=== PATIENT | male | born 1950 | race Caucasian/White ===

== ENCOUNTER → 2019-10-28 11:49 | Outpatient (BNVA) | payer MEDICARE, SELFPAY | PROVIDERS: Family Provider Nurse Practitioner Family; PCP Nurse Practitioner Family; Visit Provider Nurse Practitioner Family | DX: E11.9 Type 2 diabetes mellitus without complications (principal); F41.9 Anxiety disorder, unspecified; F32.9 Major depressive disorder, single episode, unspecified; C79.31 Secondary malignant neoplasm of brain; E03.9 Hypothyroidism, unspecified | CPT/HCPCS: 83036 ==

== ENCOUNTER → 2019-11-30 12:08 | Outpatient (BNVA) | payer MEDICARE, SELFPAY | PROVIDERS: Family Provider Nurse Practitioner Family; PCP Nurse Practitioner Family; Visit Provider Nurse Practitioner Family | DX: E03.9 Hypothyroidism, unspecified (principal); I10 Essential (primary) hypertension; M19.90 Unspecified osteoarthritis, unspecified site | CPT/HCPCS: 80053; 81003; 84443; 85025 ==

== ENCOUNTER → 2019-12-31 10:33 | Outpatient (BNVA) | payer MEDICARE, SELFPAY | PROVIDERS: Family Provider Nurse Practitioner Family; PCP Nurse Practitioner Family; Visit Provider Nurse Practitioner Family | DX: J22 Unspecified acute lower respiratory infection (principal); R06.2 Wheezing; I10 Essential (primary) hypertension; Q25.46 Tortuous aortic arch | CPT/HCPCS: 71046 ==

== ENCOUNTER → 2020-01-27 10:24 | Outpatient (BNVA) | payer MEDICARE, SELFPAY | PROVIDERS: Family Provider Nurse Practitioner Family; PCP Nurse Practitioner Family; Visit Provider Nurse Practitioner Family | DX: Z20.828 Contact with and (suspected) exposure to other viral communicable diseases (principal); R06.2 Wheezing; J22 Unspecified acute lower respiratory infection | CPT/HCPCS: 87635 ==

== ENCOUNTER → 2020-01-31 12:34 | Outpatient (BNVA) | payer MEDICARE, SELFPAY | PROVIDERS: Family Provider Nurse Practitioner Family; PCP Nurse Practitioner Family; Visit Provider Family Medicine | DX: J44.1 Chronic obstructive pulmonary disease with (acute) exacerbation (principal); J18.9 Pneumonia, unspecified organism; R06.02 Shortness of breath; R06.2 Wheezing | CPT/HCPCS: 71046 ==

== ENCOUNTER → 2020-04-11 10:44 | Outpatient (BNVA) | payer MEDICARE, SELFPAY | PROVIDERS: Family Provider Nurse Practitioner Family; PCP Nurse Practitioner Family; Visit Provider Nurse Practitioner Family | DX: R06.02 Shortness of breath (principal) | CPT/HCPCS: 71046 ==

== ENCOUNTER 2020-08-11 12:32 | Emergency (ER) | payer MEDICARE, SELFPAY ==
[2020-08-11 12:35] VITALS: BP 151/91; PULSE 65; RESP 24; TEMP 36.6; O2SAT 94; BMI 49.8
--- NOTE | 2020-08-11 12:39 | XR_ITS ---
WS: [id number] Portable AP upright chest, 08/11/2020 Clinical Data: dyspnea/cough Comparison: PA and lateral chest, 04/11/2020. Findings: No nodules, masses or effusions are seen. The heart is enlarged. The pulmonary vascularity is not increased. No pneumonia or pneumothorax is seen. The right Port-A-Cath remains in good positio n. XR/XR chest 1V portable [id number] Impression: Cardiomegaly.
--- NOTE | 2020-08-11 12:40 | ECG_ITS ---
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
--- NOTE | 2020-08-11 12:41 | ED_ITS ---
HPI - SOB/Dyspnea General: Chief Complaint: Shortness of Breath/Dyspnea Stated Complaint: SOB Time Seen by Provider: 08/11/20 12:38 History of Present Illness: HPI Narrative: 70 yo male with complaint of dyspnea on exertion. Is a history of COPD is morbidly obese and he has a history of sleep apnea does not use a CPAP. He has not had any chest pain. With minimal exertion he gets very short of breath. He is currently on inhaled medications they offer some relief. He has noticed increased swelling in his lower extremities. MD elicited complaint: shortness of breath and cough Pertinent past history: COPD Onset (ago): minute(s) Context: occurred during exertion Timing: intermittent Severity: moderate Exacerbating factors: exertion and coughing Relieving factors: rest Known history of: COPD Associated symptoms: Reports chest congestion, cough and hemoptysis; Deny abdominal pain, chest pain, diaphoresis, dizziness, extremity pain, fever(s), lightheadedness, myalgias, nausea, orthopnea, palpitations, paresthesias, polydipsia, polyuria, rash, sense of impending doom, syncope or vomiting Treatment prior to arrival: none Review of Systems Const: Denies: fever(s) or diaphoresis ENMT: Denies: throat pain, ear or mastoid pain, nasal discharge or nasal congestion Card: Denies: chest pain, palpitations, lightheadedness, syncope or orthopnea Resp: Reports: dyspnea, productive cough, hemoptysis and chest congestion GI: Denies: abdominal pain, nausea or vomiting : Denies: flank pain, dysuria, urinary frequency or urinary urgency Musc: Denies: extremity pain Skin/Breast: Denies: rash or pruritus Neuro: Denies: dizziness Endo: Denies: polyuria or polydipsia PFS ED PFSH: Medical History Anxiety and depression Arthritis Brain tumor Close exposure to COVID-19 virus Diabetes Edema Essential hypertension Hypothyroid Lower respiratory tract infection [place] reservoir present Rash of body Wheezing Physical Exam Const: COMMON NORMALS: no acute distress GENERAL APPEARANCE: cooperative and comfortable ORIENTATION/CONSCIOUSNESS: Yes awake, Yes oriented to person, Yes oriented to place and Yes oriented to time HENMT: COMMON NORMALS: normocephalic, atraumatic, hearing grossly normal bilaterally and external ears normal HEAD & SCALP: normocephalic and atraumatic EXTERNAL EAR: Yes external ears normal Neck/C-Spine: COMMON NORMALS: no JVD Resp: COMMON NORMALS: normal respiratory effort, No retractions, No use of accessory muscles and clear to auscultation bilaterally AUSCULTATION: clear to auscultation bilaterally Cardio: COMMON NORMALS: no JVD, regular rate, regular rhythm and No murmurs present (Cardio) RATE: regular rate RHYTHM: regular rhythm GI: COMMON NORMALS: Soft to palpation and No hepatosplenomegaly present AUSCULTATION: Yes normoactive bowel sounds PALPATION: Yes Soft to palpation, No Tenderness to palpation present (GI), No Guarding due to palpation present (GI) and Yes No hepatosplenomegaly present Extremity: COMMON NORMALS: normal to inspection, capillary refill normal and no calf tenderness Neuro: SENSORIUM/ORIENTATION: Yes oriented to person, Yes oriented to place and Yes oriented to time Skin: COMMON NORMALS: no rashes or lesions noted GENERAL SKIN EXAM: no rashes or lesions noted Course Vital Signs: Vital signs: Vital Signs Temperature 97.8 F 08/11/20 12:35 Pulse Rate 58 L 08/11/20 16:15 Respiratory Rate 16 08/11/20 16:15 Blood Pressure 153/84 08/11/20 16:15 Pulse Oximetry 93 08/11/20 16:15 MDM - SOB/Dyspnea MDM Narrative: Medical decision making narrative: Patient is mildly fluid overloaded organ to go and have him increase his Lasix to 60 mg twice daily he is having some productive cough although there is no clear infiltrate on chest x-ray we will add doxycycline 100 twice daily increase his prednisone to 40 tw ice daily for 3 days and then 20 twice daily for 3 days follow-up with his primary care doctor within the week. We will schedule him for an outpatient echocardiogram patient needs further evaluation for open cor pulmonale and sleep apnea. Lab Data: Labs: Lab Results 08/11/20 08/11/20 08/11/20 Range/Units 12:47 12:47 12:47 WBC 6.2 (4.0-10.0) 10^3/ uL RBC 4.19 (4.1-5.3) 10^6/u L Hgb 12.4 (11.7-16.6) g/dL Hct 38.8 L (42.0-52.0) % MCV 92.6 (80-94) fL MCH 29.6 (28.0-34.0) pg MCHC 32.0 (30.0-36.0) g/dL RDW 15.1 (12.1-15.1) % Plt Count 207 (130-400) 10^3/c mm MPV 9.8 (7.4-10.4) fL Neut % (Auto) 66.1 % Lymph % (Auto) 12.3 % [place] % (Auto) 8.6 % Eos % (Auto) 10.9 % Baso % (Auto) 1.6 % Neut # (Auto) 4.08 (1.8-7.7) 10^3/u L Lymph # (Auto) 0.8 (0.8-4.8) 10^3/u L [place] # (Auto) 0.5 (0.2-0.9) 10^3/u L Eos # (Auto) 0.7 (0.0-0.8) 10^3/u L Baso # (Auto) 0.1 (0.0-0.1) 10^3/u L Nucleated RBC % (a uto) 0 % Nucleated RBCs # 0.0 /100WBC Sodium 138 (136-145) mmol/L Potassium 3.6 (3.5-5.1) mmol/L Chloride 102 (98-107) mmol/L Carbon Dioxide 23 (22-29) mmol/L Anion Gap 16.6 (5-19) BUN 13 (8-23) mg/dL Creatinine 0.8 (0.7-1.2) mg/dL GFR Calculation Not Reportable Glucose 194 H (65-115) mg/dL Calculated Osmolal ity 291 (285-295) mOsm/k g Calcium 8.3 L (8.5-10.5) mg/dL Total Bilirubin 0.4 (0.15-1.2) mg/dL AST 17 (0-40) U/L ALT 20 (0-41) U/L Alkaline Phosphata se 92 (40-130) IU/L Troponin T Baselin e 26 H (0-15) ng/L Troponin T 120 Min [place] (0-15) ng/L Delta Troponin T (0-10) ABS# NT-Pro-B Natriuret Pep (0-125) pg/mL Total Protein 6.0 L (6.6-8.7) g/dL Albumin 4.1 (3.5-5.2) g/dL Globulin 1.9 (1.3-4.6) g/dL 08/11/20 08/11/20 Range/Units 12:47 14:50 WBC (4.0-10.0) 10^3/ uL RBC (4.1-5.3) 10^6/u L Hgb (11.7-16.6) g/dL Hct (42.0-52.0) % MCV (80-94) fL MCH (28.0-34.0) pg MCHC (30.0-36.0) g/dL RDW (12.1-15.1) % Plt Count (130-400) 10^3/c mm MPV (7.4-10.4) fL Neut % (Auto) % Lymph % (Auto) % [place] % (Auto) % Eos % (Auto) % Baso % (Auto) % Neut # (Auto) (1.8-7.7) 10^3/u L Lymph # (Auto) (0.8-4.8) 10^3/u L [place] # (Auto) (0.2-0.9) 10^3/u L Eos # (Auto) (0.0-0.8) 10^3/u L Baso # (Auto) (0.0-0.1) 10^3/u L Nucleated RBC % (a uto) % Nucleated RBCs # /100WBC Sodium (136-145) mmol/L Potassium (3.5-5.1) mmol/L Chloride (98-107) mmol/L Carbon Dioxide (22-29) mmol/L Anion Gap (5-19) BUN (8-23) mg/dL Creatinine (0.7-1.2) mg/dL GFR Calculation Glucose (65-115) mg/dL Calculated Osmolal ity (285-295) mOsm/k g Calcium (8.5-10.5) mg/dL Total Bilirubin (0.15-1.2) mg/dL AST (0-40) U/L ALT (0-41) U/L Alkaline Phosphata se (40-130) IU/L Troponin T Baselin e (0-15) ng/L Troponin T 120 Min [place] 26.21 H (0-15) ng/L Delta Troponin T 0.21 (0-10) ABS# NT-Pro-B Natriuret Pep 93 (0-125) pg/mL Total Protein (6.6-8.7) g/dL Albumin (3.5-5.2) g/dL Globulin (1.3-4.6) g/dL Discharge Plan Discharge Patient Disposition: Home Clinical Impression: Acute exacerbation of chronic obstructive airways disease Condition: Stable Prescriptions: New Lasix 40 mg tablet 60 mg PO BID Qty: 60 RF: 0 doxycycline hyclate 100 mg capsule 100 mg PO BID 10 Days Qty: 20 RF: 0 Changed prednisone 20 mg tablet 50 mg PO BID 5 Days Qty: 10 RF: 0 No Action nivolumab 240 mg/24 mL solution See Rx Instructions .ROUTE .COMPLEX RF: 0 albuterol sulfate 0.63 mg/3 mL solution for nebulization 0.63 mg INHALATION Q6H PRN (Reason: shortness of breath or wheezing) 30 Days Qty: 90 RF: 0 triamcinolone acetonide 0.1 % lotion 1 applic topical BID Qty: 120 RF: 2 albuterol sulfate [ProAir HFA] 90 mcg/actuation HFA aerosol inhaler 1 inh inhalation Q6H PRN (Reason: shortness of breath or wheezing) Qty: 8.5 RF: 2 aspirin 325 mg Tablet 325 mg PO PRN RF: 0 Benadryl 25 mg Capsule 25 - 50 mg PO PRN RF: 0 [place] 324 mg Tablet, Effervescent See Rx Instructions .ROUTE .COMPLEX RF: 0 furosemide 40 mg tablet 20 - 40 mg PO BID RF: 0 allopurinol 100 mg tablet 100 mg PO QAM RF: 0 meloxicam 7.5 mg tablet 7.5 mg PO QAM RF: 0 Celexa 20 mg tablet 30 mg PO DAILY RF: 0 metformin 1,000 mg tablet 1,000 mg PO QAM RF: 0 Synthroid 200 mcg tablet 200 mcg PO DAILY RF: 0 lovastatin 20 mg tablet 20 mg PO QAM RF: 0 atenolol 50 mg tablet 50 mg PO QAM RF: 0 hydrochlorothiazide 12.5 mg tablet 12.5 mg PO QAM RF: 0 Discharge Orders: Discharge ED (Routine); Ordered 08/11/20 Ordered By: Colin Osei Referrals: NICHOLAS Ramos, HEALTH AND FITNESS INSTRUCTOR [Primary Care Provider] - Discharge Diet: Usual diet Discharge Activity: Limit activity as instructed Patient Instructions: Opioid Safety Activity Restrictions/Additional Instructions: Increase your prednisone to 50 mg twice daily for 3 days then 40 mg twice daily for 3 days. See your primary care doctor within the next 4 to 5 days. We will add doxycycline 100 mg twice daily. Also increase your Lasix to 60 mg twice daily. Case management will schedule an outpatient echocardiogram to evaluate for right-sided heart strain and pulmonary hypertension. Coding Level of Care Code ED Mobile Security Specialist for Juan Manuel Fwd Exam Comprehensive
[2020-08-11 12:53] LABS: Basophils # 0.1 10^3/uL (0.0-0.1); Basophils % 1.6 %; Eosinophils # 0.7 10^3/uL (0.0-0.8); Eosinophils % 10.9 %; Hematocrit 38.8 % (42.0-52.0); Hemoglobin 12.4 g/dL (11.7-16.6); Lymphocytes # 0.8 10^3/uL (0.8-4.8); Lymphocytes % 12.3 %; Mean Corpuscular Hemoglobin 29.6 pg (28.0-34.0); Mean Corpuscular Volume 92.6 fL (80-94); Mean Platelet Volume 9.8 fL (7.4-10.4); Monocytes # 0.5 10^3/uL (0.2-0.9); Monocytes % 8.6 %; Neutrophils # 4.08 10^3/uL (1.8-7.7); Neutrophils % 66.1 %; Nucleated Red Blood Cells % 0 %; Platelet Count 207 10^3/cmm (130-400); Red Blood Count 4.19 10^6/uL (4.1-5.3); Red Cell Distribution Width 15.1 % (12.1-15.1); White Blood Count 6.2 10^3/uL (4.0-10.0)
[2020-08-11 13:17] LABS: Alanine Aminotransferase 20 U/L (0-41); Albumin Level 4.1 g/dL (3.5-5.2); Alkaline Phosphatase 92 IU/L (40-130); Anion Gap 16.6 (5-19); Aspartate Amino Transferase 17 U/L (0-40); Blood Urea Nitrogen 13 mg/dL (8-23); Calcium 8.3 mg/dL (8.5-10.5); Carbon Dioxide 23 mmol/L (22-29); Chloride 102 mmol/L (98-107); Globulin 1.9 g/dL (1.3-4.6); Glucose 194 mg/dL (65-115); Osmolality Calculated 291 mOsm/kg (285-295); Potassium 3.6 mmol/L (3.5-5.1); Sodium 138 mmol/L (136-145); Total Bilirubin 0.4 mg/dL (0.15-1.2)
[2020-08-11 13:18] LABS: Troponin(5th) Baseline 26 ng/L (0-15)
--- NOTE | 2020-08-11 13:38 | PC.PHAR ---
pt states he takes care of his own medications-pt states he is still taking celexa-ext med history shows last filled on 03/13/20 90d/s-rx written in 08/09/20 for lasix-pt states he hasnt gotten this rx yet-pt states the dr told him to take his wifes 40mg tab-pt states he only got to take one of the 40mg tabs -rx written in 08/09/20 for prednisone 20mg bid-pt states he hasnt gotten yet-ext med history shows levothyroxine 200mcg daily last filled on 01/10/2020 90d/s-pt states he is still taking this medication
[2020-08-11 14:11] VITALS: BP 154/84; PULSE 60; RESP 17; O2SAT 93
--- NOTE | 2020-08-11 14:40 | ECG_ITS ---
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1950 Requested By: Colin Nicole Order Number: [id number] Reading MD: APOLINAR CINTRON Measurements Intervals [place] Rate: 54 P: -1 NM: 163 QRS: -33 QRSD: 129 T: -23 QT: 424 QTc: 404 Interpretive Statements SINUS BRADYCARDIA MARKED LEFT AXIS DEVIATION [QRS AXIS < -30] LEFT BUNDLE BRANCH BLOCK [120+ ms QRS DURATION, 80+ ms Q/S IN V1/V2, 85+ ms R IN I/aVL/V5/V6] Compared to ECG 08/11/2020 12:50:49 No significant changes Electronically Signed On 08-12-2020 20:24:57 CDT by APOLINAR CINTRON [id number]
[2020-08-11 14:45] VITALS: BP 154/96; PULSE 54; PULSE 58; RESP 21; O2SAT 91
[2020-08-11 15:05] LABS: NT Pro B Type Natriuretic Pept 93 pg/mL (0-125)
[2020-08-11 15:25] LABS: Troponin 5 2HR 26.21 ng/L (0-15); Troponin 5 2HR Delta 0.21 ABS# (0-10)
[2020-08-11 15:40] VITALS: O2SAT 95; O2SAT 96
[2020-08-11 16:15] VITALS: BP 153/84; PULSE 58; RESP 16; O2SAT 93
--- NOTE | 2020-08-16 13:58 | DCPLANNER ---
manager cardiac had message to schedule an outpatient echo cardiogram for patient. manager cardiac faxed signed order to centralized scheduling. manager cardiac will call for appointment information.
--- NOTE | 2020-08-24 12:29 | DCPLANNER ---
Patient has a follow up appointment scheduled for Saturday, September 19, 2020 at 9:30 for an echo.
--- NOTE | 2020-10-05 07:20 | DCPLANNER ---
Patient had an out patient echo scheduled - patient did attend appointment.
== END 2020-08-11 16:16 | disposition home or self-care (01) ==
PROVIDERS: Emergency Provider Family Medicine; PCP Nurse Practitioner Family
DX: J44.1 Chronic obstructive pulmonary disease with (acute) exacerbation (principal); Z79.82 Long term (current) use of aspirin; Z79.84 Long term (current) use of oral hypoglycemic drugs; E11.9 Type 2 diabetes mellitus without complications; I10 Essential (primary) hypertension
CPT/HCPCS: 71045; 80053; 83880; 84484; 85025; 93005; 99284

== ENCOUNTER 2020-09-19 09:09 | Outpatient (CLI) | payer MEDICARE, SELFPAY ==
--- NOTE | 2020-09-19 09:15 | USCV_ITS ---
Mark Li Age: 70 Gender: M : 1950 Exam Date: 09/19/2020 09:49 Ordering Phys: Colin Osei DO Technologist: Bryan Disla Exam Location: [facility] [place] Indication: SOB PEDAL EDEMA BP: / HR: 66 Rhythm: Sinus Technical Quality: Adequate MEASUREMENTS (Male / Female) Normal Values 2D ECHO LV Diastolic Diameter PLAX 3.8 cm 4.2 - 5.9 / 3.9 - 5.3 cm LV Systolic Diameter PLAX 2.5 cm IVS Diastolic Thickness 1.3 cm 0.6 - 1.0 / 0.6 - 0.9 cm IVS Systolic Thickness 1.9 cm LVPW Diastolic Thickness 1.3 cm 0.6 - 1.0 / 0.6 - 0.9 cm LVPW Systolic Thickness 1.7 cm LVOT Diameter 2.6 cm LV Ejection Fraction 2D Teich 61.3 % LV Ejection Fraction MOD 2C 57.5 % LV Ejection Fraction 2C AL 57.6 % LA Diameter 5.4 cm LA Width 5.1 cm LA Height 6.1 cm RA Width 4.7 cm RA Height 6.1 cm Aorta at Sinotubular Diameter 3.0 cm DOPPLER AV Peak Velocity 161.0 cm/s LVOT Peak Velocity 99.0 cm/s AV Area Cont Eq vti 3.0 cm squared AV Area Cont Eq pk 3.2 cm squared MV Area PHT 5.0 cm squared Mitral E to A Ratio 0.7 MV E' Velocity 36.0 cm/s Mitral E to MV E' Ratio 8.4 Mitral E to LV E' Lateral Ratio 9.8 Mitral E to LV E' Septal Ratio 7.4 TR Peak Velocity 310.7 cm/s TR Peak Gradient 38.6 mmHg TV Peak E Velocity 90.0 cm/s Right Atrial Pressure 3.0 mmHg Pulmonary Artery Systolic Pressu 41.6 mmHg PV Peak Velocity 71.0 cm/s FINDINGS Left Ventricle Normal left ventricular cavity size. Normal left ventricular systolic function. Left ventricular ejection fraction is estimated at 60 %. There is possible septal hypokinesis. Abnormal septal motion consistent with conduction abnormality. Grade I diastolic dysfunction (abnormal relaxation filling pattern), normal to mildly elevated filling pressures. Right Ventricle Normal right ventricular size and systolic function. RVSP could not be calculated due to incomplete tricuspid regurgitation velocity profile. Right Atrium Normal right atrial size. Left Atrium Mildly increased left atrial size. Mitral Valve Structurally normal mitral valve. No mitral valve stenosis. No mitral valve regurgitation. Aortic Valve Aortic valve not well visualized. No aortic valve stenosis. No aortic valve regurgitation. Tricuspid Valve Structurally normal tricuspid valve. Trace tricuspid valve regurgitation. Pulmonic Valve Pulmonic valve not well visualized. Pericardium No pericardial effusion. Aorta Normal size aortic root and proximal ascending aorta. CONCLUSIONS 1. This is a technically difficult study. Ultrasound enhancing agent Optison was used per protocol. 2. Normal left ventricular cavity size and systolic function. Left ventricular ejection fraction is estimated at 60 %. There is possible septal hypokinesis. Abnormal septal motion consistent with conduction abnormality. Grade I diastolic dysfunction (abnormal relaxation filling pattern), normal to mildly elevated filling pressures. 3. Normal right ventricular size and systolic function 4. Mildly increased left atrial size. 5. No prior similar studies to compare. Desire Carranza MD (Electronically Signed) Final Date: 19 September 2020 17:12 S
[2020-09-19] MEDS: perflutren protein-a microsphr 0.22 mg/mL SDV 3 mL IV (10:19)
== END 2020-09-19 09:10 | disposition home or self-care (01) ==
LOC: US 09:11
PROVIDERS: PCP Nurse Practitioner Family; Visit Provider Nurse Practitioner Family
DX: R06.02 Shortness of breath (principal); I27.20 Pulmonary hypertension, unspecified; R60.9 Edema, unspecified
CPT/HCPCS: C8929; Q9956

== ENCOUNTER 2020-09-21 13:30 | Emergency (ER) | payer MEDICARE, SELFPAY ==
[2020-09-21 13:54] VITALS: BP 136/78; PULSE 78; RESP 22; TEMP 36.8; O2SAT 95; BMI 45.6
--- NOTE | 2020-09-21 14:19 | XR_ITS ---
WS: [id number] Portable AP upright chest, 09/21/2020 Clinical Data: Cough Comparison: Chest, 08/11/2020. Findings: No nodules, masses or effusions are seen. The heart is enlarged. The pulmonary vascularity is not increased. No pneumonia or pneumothorax is seen. Right Port-A-Cath is in good position. Monito r leads are on the chest wall. XR/XR chest 1V portable [id number] Impression: Cardiomegaly.
[2020-09-21 14:38] LABS: ABG PCO2 40.6 mmHg (35-45); ABG PH Result 7.47 (7.35-7.45); Alveolar-Arterial Oxygen Gradi 4.3 mmHg (5-10); Arterial Blood Gas Hematocrit 39.7 % (42-52); Base Excess ABG 5.1 mmol/L (-2.0-2.0); Blood Gas Allen Test Pos; Blood Gas Operator Identificat AMH; Blood Gas Sample Site Radial, right; Blood Gas Sample Type Arterial; Carboxyhemoglobin 1.2 %THgb (0.4-20.1); HCO3 ABG 29.2 mmol/L (22-26); HGB O2 Sat 92.6 % (95-100); Ionized Calcium Level - ABG 1.2 mmol/L (1.1-1.4); Methemoglobin 0.9 % (0.4-1.5); Oxygen Device ROOM AIR; Oxygen Saturation ABG 94.5; PO2 ABG 66.6 mmHg (80.0-100.0); Potassium Level - ABG 3.6 mmol/L (3.5-5.0)
--- NOTE | 2020-09-21 14:57 | ED_ITS ---
HPI - SOB/Dyspnea General: Chief Complaint: Shortness of Breath/Dyspnea Stated Complaint: swelling, SOB, Time Seen by Provider: 09/21/20 14:50 History of Present Illness: HPI Narrative: This patient is a 70-year-old male who presents to the emergency department with a complaint of concerning shortness of breath due to congestive heart failure. Patient had a recent echocardiogram which she stated below. Patient states that he had a 22 pound weight gain in about a week. Patient states increasing shortness of breath. Patient denies chest pain. Patient states he did take double Lasix this morning but still not really put out much urine. This has been an ongoing issue for the patient for quite a while. Will do medical evaluation treat as needed Echocardiogram dated 09/19/2020 FINDINGS Left Ventricle Normal left ventricular cavity size. Normal left ventricular systolic function. Left ventricular ejection fraction is estimated at 60 %. There is possible septal hypokinesis. Abnormal septal motion consistent with conduction abnormality. Grade I diastolic dysfunction (abnormal relaxation filling pattern), normal to mildly elevated filling pressures. Right Ventricle Normal right ventricular size and systolic function. RVSP could not be calculated due to incomplete tricuspid regurgitation velocity profile. Right Atrium Normal right atrial size. Left Atrium Mildly increased left atrial size. Mitral Valve Structurally normal mitral valve. No mitral valve stenosis. No mitral valve regurgitation. Aortic Valve Aortic valve not well visualized. No aortic valve stenosis. No aortic valve regurgitation. Tricuspid Valve Structurally normal tricuspid valve. Trace tricuspid valve regurgitation. Pulmonic Valve Pulmonic valve not well visualized. Pericardium No pericardial effusion. Aorta Normal size aortic root and proximal ascending aorta. CONCLUSIONS 1. This is a technically difficult study. Ultrasound enhancing agent Optison was used per protocol. 2. Normal left ventricular cavity size and systolic function. Left ventricular ejection fraction is estimated at 60 %. There is possible septal hypokinesis. Abnormal septal motion consistent with conduction abnormality. Grade I diastolic dysfunction (abnormal relaxation filling pattern), normal to mildly elevated filling pressures. 3. Normal right ventricular size and systolic function 4. Mildly increased left atrial size. 5. No prior similar studies to compare. MD elicited complaint: shortness of breath Pertinent past history: congestive heart failure Onset (ago): week(s) Timing: constant Severity: moderate Exacerbating factors: lying flat and exertion Relieving factors: nothing Known history of: congestive heart failure Associated symptoms: Reports orthopnea; Deny abdominal pain, chest pain, extremity pain, fever(s), lightheadedness, nausea, palpitations or vomiting Review of Systems General: Reports: 10 or more systems reviewed and unremarkable except in HPI and below Const: Denies: fever(s), chills, body aches or fatigue Eyes: Denies: change in vision or blurry vision ENMT: Denies: throat pain, hoarseness or mouth pain Card: Reports: edema, swelling of feet/ankles and orthopnea; Denies: chest pain, palpitations, irregular heart rhythm or lightheadedness Resp: Denies: dyspnea, productive cough, non-productive cough, wheezing or pain on inspiration GI: Denies: abdominal pain, nausea or vomiting : Denies: flank pain, dysuria, urinary frequency, urinary urgency or urinary hesitancy Musc: Denies: neck pain, back pain, extremity pain, extremity swelling, joint pain, joint swelling, joint redness, joint warmth or limited range of motion Skin/Breast: Denies: rash, pruritus, erythema or skin tenderness Neuro: Denies: headache(s), numbness in extremities or weakness in extremities Psych: Denies: anxiety or depression PFSH ED PFSH: Medical History Anxiety and depression Arthritis Brain tumor Close exposure to COVID-19 virus Diabetes Edema Essential hypertension Hypothyroid Lower respiratory tract infection [place] reservoir present Rash of body Shortness of breath Wheezing Physical Exam Const: COMMON NORMALS: no acute distress, average body habitus, patient oriented x3, no limitations, healthy appearing, alert and well nourished HENMT: COMMON NORMALS: normocephalic, atraumatic, hearing grossly normal bilaterally, external ears normal, EAC's normal, TM's normal bilaterally, Normal external nose present, Normal nasal mucous membranes and turbinates present, moist oral mucous membranes, oropharynx normal, dentition normal and gingiva normal HEAD & SCALP: normocephalic and atraumatic NOSE: Normal external nose present and Normal nasal mucous membranes and turbinates present EXTERNAL EAR: Yes external ears normal EXTERNAL AUDITORY CANAL: EAC's normal TYMPANIC MEMBRANE: TM's normal bilaterally Neck/C-Spine: COMMON NORMALS: full ROM, no lymphadenopathy, supple, no meningeal signs, no JVD, Thyroid normal and No carotid bruits THYROID: Thyroid normal Chest: COMMONS NORMALS: normal inspection of the chest, normal palpation of entire chest wall, normal inspection of the breasts and normal palpation of the breasts Breast/axilla inspection: Yes normal inspection of the breasts BREAST/AXILLA PALPATION: Yes normal palpation of the breasts Resp: COMMON NORMALS: No retractions, No use of accessory muscles, clear to auscultation bilaterally and percussion normal EFFORT & INSPECTION: Yes tachypneic AUSCULTATION: clear to auscultation bilaterally PERCUSSION: percussion normal Cardio: COMMON NORMALS: no JVD, regular rate, regular rhythm, S1 normal heart sound present, S2 normal heart sound present, No gallops present (Cardio), No clicks present (Cardio), No murmurs present (Cardio), No rub (Cardio) and Peripheral pulses 2+ throughout RATE: regular rate RHYTHM: regular rhythm HEART SOUNDS: S1 normal heart sound present and S2 normal heart sound present PERIPHERAL PULSES: Peripheral pulses 2+ throughout OTHER: Significant edema. Patient has 3-4+ edema lower extremities. Appears to be fluid overloaded. GI: COMMON NORMALS: Normal to inspection, nondistended, normoactive bowel sounds present, Soft to palpation, non-tender, No hepatosplenomegaly present, no masses and no bruits PALPATION: Yes Soft to palpation and Yes No hepatosplenomegaly present : COMMON NORMALS: Yes no CVA tenderness BLADDER/KIDNEY EXAM: Yes no CVA tenderness Back/Pelvis: COMMON NORMALS: no CVA tenderness, thoracic and lumbar spine normal to inspection, no thoracic nor lumbar tenderness, thoraco-lumbar ROM normal and straight leg raise negative bilaterally Extremity: COMMON NORMALS: normal to inspection, full ROM, capillary refill normal, no joint enlargement, no clubbing, cyanosis or edema, no calf tenderness and no pedal edema Neuro: COMMON NORMALS: patient oriented x3 SENSORIUM/ORIENTATION: Yes alert MENINGEAL SIGNS: Yes no meningeal signs Course Reevaluation(s): Reevaluation #1: Patient doing well walking around the ER room. Patient is not on oxygen. Maintaining O2 sats. Patient is requesting to be discharged home. We did discuss patient's echocardiogram results. Patient will follow up with primary care and cardiology. Discussed at length with patient's elevated D-dimer patient declines CT angio. Patient request to be discharged home. Agrees he will follow up with primary care physician in 2 to 3 days for his chronic issues. Patient is discharged per his request Time: 18:38 Vital Signs: Vital signs: Vital Signs Temperature 98.2 F 09/21/20 13:54 Pulse Rate 73 09/21/20 16:30 Respiratory Rate 20 H 09/21/20 16:30 Blood Pressure 158/93 09/21/20 16:30 Pulse Oximetry 98 09/21/20 16:30 MDM - SOB/Dyspnea MDM Narrative: Medical decision making narrative: This patient is a 70-year-old male who presents to the emergency department with a complaint of concerning shortness of breath due to congestive heart failure. Patient had a recent echocardiogram which she stated below. Patient states that he had a 22 pound weight gain in about a week. Patient states increasing shortness of breath. Patient denies chest pain. Patient states he did take double Lasix this morning but still not really put out much urine. This has been an ongoing issue for the patient for quite a while. Will do medical evaluation treat as needed Echocardiogram dated 09/19/2020 FINDINGS Left Ventricle Normal left ventricular cavity size. Normal left ventricular systolic function. Left ventricular ejection fraction is estimated at 60 %. There is possible septal hypokinesis. Abnormal septal motion consistent with conduction abnormality. Grade I diastolic dysfunction (abnormal relaxation filling pattern), normal to mildly elevated filling pressures. Right Ventricle Normal right ventricular size and systolic function. RVSP could not be calculated due to incomplete tricuspid regurgitation velocity profile. Right Atrium Normal right atrial size. Left Atrium Mildly increased left atrial size. Mitral Valve Structurally normal mitral valve. No mitral valve stenosis. No mitral valve regurgitation. Aortic Valve Aortic valve not well visualized. No aortic valve stenosis. No aortic valve regurgitation. Tricuspid Valve Structurally normal tricuspid valve. Trace tricuspid valve regurgitation. Pulmonic Valve Pulmonic valve not well visualized. Pericardium No pericardial effusion. Aorta Normal size aortic root and proximal ascending aorta. CONCLUSIONS 1. This is a technically difficult study. Ultrasound enhancing agent Optison was used per protocol. 2. Normal left ventricular cavity size and systolic function. Left ventricular ejection fraction is estimated at 60 %. There is possible septal hypokinesis. Abnormal septal motion consistent with conduction abnormality. Grade I diastolic dysfunction (abnormal relaxation filling pattern), normal to mildly elevated filling pressures. 3. Normal right ventricular size and systolic function 4. Mildly increased left atrial size. 5. No prior similar studies to compare. Patient doing well walking around the ER room. Patient is not on oxygen. Maintaining O2 sats. Patient is requesting to be discharged home. We did discuss patient's echocardiogram results. Patient will follow up with primary care and cardiology. Discussed at length with patient's elevated D-dimer patient declines CT angio. Patient request to be discharged home. Agrees he will follow up with primary care physician in 2 to 3 days for his chronic issues. Patient is discharged per his request Medical Records: Attestation: I reviewed the patient's medical records. Lab Data: Attestation: I reviewed the patient's lab results. Labs: Lab Results 09/21/20 09/21/20 09/21/20 Range/Units 14:25 15:40 15:40 WBC 7.0 (4.0-10.0) 10^3/ uL RBC 4.27 (4.1-5.3) 10^6/u L Hgb 12.6 (11.7-16.6) g/dL Hct 40.0 L (42.0-52.0) % MCV 93.7 (80-94) fL MCH 29.5 (28.0-34.0) pg MCHC 31.5 (30.0-36.0) g/dL RDW 15.0 (12.1-15.1) % Plt Count 223 (130-400) 10^3/c mm MPV 10.1 (7.4-10.4) fL Neut % (Auto) 71.5 % Lymph % (Auto) 11.5 % Maverick % (Auto) 9.8 % Eos % (Auto) 5.9 % Baso % (Auto) 0.9 % Neut # (Auto) 4.97 (1.8-7.7) 10^3/u L Lymph # (Auto) 0.8 (0.8-4.8) 10^3/u L Maverick # (Auto) 0.7 (0.2-0.9) 10^3/u L Eos # (Auto) 0.4 (0.0-0.8) 10^3/u L Baso # (Auto) 0.1 (0.0-0.1) 10^3/u L Nucleated RBC % (a uto) 0 % Nucleated RBCs # 0.0 /100WBC PT 13.70 (12.1-14.9) SECO NDS INR 1.02 (0.8-1.2) APTT 26.1 (23.9-36.7) SECO NDS D-Dimer (0-0.59) ug/mIFE U Specimen Type Arterial Sample Site Radial, right ABG pH 7.47 H (7.35-7.45) ABG pCO2 40.6 (35-45) mmHg ABG pO2 66.6 L (80.0-100.0) mmH g ABG HCO3 29.2 H (22-26) mmol/L ABG O2 Saturation 94.5 ABG Base Excess 5.1 H (-2.0-2.0) mmol/ L Pio Test Pos A-a O2 Gradient 4.3 L (5-10) mmHg Hematocrit 39.7 L (42-52) % Hgb O2 Saturation 92.6 L (95-100) % Carboxyhemoglobin 1.2 (0.4-20.1) %THgb Methemoglobin 0.9 (0.4-1.5) % Total Hemoglobin 13.0 L (14-18) g/dL Sodium 137.0 (131-143) mmol/L Potassium 3.6 (3.5-5.0) mmol/L Glucose 215.0 H (70-115) mg/dL Ionized Calcium 1.2 (1.1-1.4) mmol/L O2 Delivery Device Room air FiO2 21.0 % Warehouse Person ID Amh Chloride (98-107) mmol/L Carbon Dioxide (22-29) mmol/L Anion Gap (5-19) BUN (8-23) mg/dL Creatinine (0.7-1.2) mg/dL GFR Calculation Calculated Osmolal ity (285-295) mOsm/k g Calcium (8.5-10.5) mg/dL Total Bilirubin (0.15-1.2) mg/dL AST (0-40) U/L ALT (0-41) U/L Alkaline Phosphata se (40-130) IU/L Troponin T Baselin e (0-15) ng/L Troponin T 120 Min [place] (0-15) ng/L Delta Troponin T (0-10) ABS# NT-Pro-B Natriuret Pep (0-125) pg/mL Total Protein (6.6-8.7) g/dL Albumin (3.5-5.2) g/dL Globulin (1.3-4.6) g/dL Urine Color (Yellow) Urine Appearance (CLEAR) Urine pH (5-7) Ur Specific Gravit y (1.005-1.030) Urine Protein (Negative) Urine Glucose (UA) (Normal) Urine Ketones (Negative) Urine Blood (Negative) Urine Nitrate (Negative) Urine Bilirubin (Negative) Urine Urobilinogen (Negative) mg/dL Ur Leukocyte Shae ase (Negative) Urine Opiates Scre en (Negative) ng/mL Ur Barbiturates Sc reen (Negative) ng/mL Ur Phencyclidine S crn (Negative) ng/mL Ur Amphetamines Sc reen (Negative) ng/mL U Benzodiazepines Scrn (Negative) ng/mL Urine Cocaine Scre en (Negative) ng/mL U Marijuana (THC) Screen (Negative) ng/mL SARS-CoV-2 Ag (Rap id) (Negative) 09/21/20 09/21/20 09/21/20 Range/Units 15:40 15:40 15:42 WBC (4.0-10.0) 10^3/ uL RBC (4.1-5.3) 10^6/u L Hgb (11.7-16.6) g/dL Hct (42.0-52.0) % MCV (80-94) fL MCH (28.0-34.0) pg MCHC (30.0-36.0) g/dL RDW (12.1-15.1) % Plt Count (130-400) 10^3/c mm MPV (7.4-10.4) fL Neut % (Auto) % Lymph % (Auto) % Maverick % (Auto) % Eos % (Auto) % Baso % (Auto) % Neut # (Auto) (1.8-7.7) 10^3/u L Lymph # (Auto) (0.8-4.8) 10^3/u L Maverick # (Auto) (0.2-0.9) 10^3/u L Eos # (Auto) (0.0-0.8) 10^3/u L Baso # (Auto) (0.0-0.1) 10^3/u L Nucleated RBC % (a uto) % Nucleated RBCs # /100WBC PT (12.1-14.9) SECO NDS INR (0.8-1.2) APTT (23.9-36.7) SECO NDS D-Dimer (0-0.59) ug/mIFE U Specimen Type Sample Site ABG pH (7.35-7.45) ABG pCO2 (35-45) mmHg ABG pO2 (80.0-100.0) mmH g ABG HCO3 (22-26) mmol/L ABG O2 Saturation ABG Base Excess (-2.0-2.0) mmol/ L Pio Test A-a O2 Gradient (5-10) mmHg Hematocrit (42-52) % Hgb O2 Saturation (95-100) % Carboxyhemoglobin (0.4-20.1) %THgb Methemoglobin (0.4-1.5) % Total Hemoglobin (14-18) g/dL Sodium 137 (131-143) mmol/L Potassium 3.7 (3.5-5.0) mmol/L Glucose 173 H (70-115) mg/dL Ionized Calcium (1.1-1.4) mmol/L O2 Delivery Device FiO2 % Warehouse Person ID Chloride [id number] L (98-107) mmol/L Carbon Dioxide 28 (22-29) mmol/L Anion Gap 15.7 (5-19) BUN 8 (8-23) mg/dL Creatinine 0.8 (0.7-1.2) mg/dL GFR Calculation Not Reportable Calculated Osmolal ity 286 (285-295) mOsm/k g Calcium 8.7 (8.5-10.5) mg/dL Total Bilirubin 0.5 (0.15-1.2) mg/dL AST 16 (0-40) U/L ALT 18 (0-41) U/L Alkaline Phosphata se 95 (40-130) IU/L Troponin T Baselin e 33 H (0-15) ng/L Troponin T 120 Min [place] (0-15) ng/L Delta Troponin T (0-10) ABS# NT-Pro-B Natriuret Pep 107 (0-125) pg/mL Total Protein 6.4 L (6.6-8.7) g/dL Albumin 3.9 (3.5-5.2) g/dL Globulin 2.5 (1.3-4.6) g/dL Urine Color (Yellow) Urine Appearance (CLEAR) Urine pH (5-7) Ur Specific Gravit y (1.005-1.030) Urine Protein (Negative) Urine Glucose (UA) (Normal) Urine Ketones (Negative) Urine Blood (Negative) Urine Nitrate (Negative) Urine Bilirubin (Negative) Urine Urobilinogen (Negative) mg/dL Ur Leukocyte Shae ase (Negative) Urine Opiates Scre en (Negative) ng/mL Ur Barbiturates Sc reen (Negative) ng/mL Ur Phencyclidine S crn (Negative) ng/mL Ur Amphetamines Sc reen (Negative) ng/mL U Benzodiazepines Scrn (Negative) ng/mL Urine Cocaine Scre en (Negative) ng/mL U Marijuana (THC) Screen (Negative) ng/mL SARS-CoV-2 Ag (Rap id) Negative (Negative) 09/21/20 09/21/20 09/21/20 Range/Units 16:20 16:20 18:04 WBC (4.0-10.0) 10^3/ uL RBC (4.1-5.3) 10^6/u L Hgb (11.7-16.6) g/dL Hct (42.0-52.0) % MCV (80-94) fL MCH (28.0-34.0) pg MCHC (30.0-36.0) g/dL RDW (12.1-15.1) % Plt Count (130-400) 10^3/c mm MPV (7.4-10.4) fL Neut % (Auto) % Lymph % (Auto) % Maverick % (Auto) % Eos % (Auto) % Baso % (Auto) % Neut # (Auto) (1.8-7.7) 10^3/u L Lymph # (Auto) (0.8-4.8) 10^3/u L Maverick # (Auto) (0.2-0.9) 10^3/u L Eos # (Auto) (0.0-0.8) 10^3/u L Baso # (Auto) (0.0-0.1) 10^3/u L Nucleated RBC % (a uto) % Nucleated RBCs # /100WBC PT (12.1-14.9) SECO NDS INR (0.8-1.2) APTT (23.9-36.7) SECO NDS D-Dimer (0-0.59) ug/mIFE U Specimen Type Sample Site ABG pH (7.35-7.45) ABG pCO2 (35-45) mmHg ABG pO2 (80.0-100.0) mmH g ABG HCO3 (22-26) mmol/L ABG O2 Saturation ABG Base Excess (-2.0-2.0) mmol/ L Pio Test A-a O2 Gradient (5-10) mmHg Hematocrit (42-52) % Hgb O2 Saturation (95-100) % Carboxyhemoglobin (0.4-20.1) %THgb Methemoglobin (0.4-1.5) % Total Hemoglobin (14-18) g/dL Sodium (131-143) mmol/L Potassium (3.5-5.0) mmol/L Glucose (70-115) mg/dL Ionized Calcium (1.1-1.4) mmol/L O2 Delivery Device FiO2 % Warehouse Person ID Chloride (98-107) mmol/L Carbon Dioxide (22-29) mmol/L Anion Gap (5-19) BUN (8-23) mg/dL Creatinine (0.7-1.2) mg/dL GFR Calculation Calculated Osmolal ity (285-295) mOsm/k g Calcium (8.5-10.5) mg/dL Total Bilirubin (0.15-1.2) mg/dL AST (0-40) U/L ALT (0-41) U/L Alkaline Phosphata se (40-130) IU/L Troponin T Baselin e (0-15) ng/L Troponin T 120 Min [place] 32.92 H (0-15) ng/L Delta Troponin T -0.08 L (0-10) ABS# NT-Pro-B Natriuret Pep (0-125) pg/mL Total Protein (6.6-8.7) g/dL Albumin (3.5-5.2) g/dL Globulin (1.3-4.6) g/dL Urine Color Straw (Yellow) Urine Appearance Clear (CLEAR) Urine pH 5 (5-7) Ur Specific Gravit y 1.010 (1.005-1.030) Urine Protein Neg (Negative) Urine Glucose (UA) Norm (Normal) Urine Ketones Negative (Negative) Urine Blood Neg (Negative) Urine Nitrate Negative (Negative) Urine Bilirubin Neg (Negative) Urine Urobilinogen Norm (Negative) mg/dL Ur Leukocyte Shae ase Negative (Negative) Urine Opiates Scre en Positive H (Negative) ng/mL Ur Barbiturates Sc reen Negative (Negative) ng/mL Ur Phencyclidine S crn Negative (Negative) ng/mL Ur Amphetamines Sc reen Negative (Negative) ng/mL U Benzodiazepines Scrn Negative (Negative) ng/mL Urine Cocaine Scre en Negative (Negative) ng/mL U Marijuana (THC) Screen Negative (Negative) ng/mL SARS-CoV-2 Ag (Rap id) (Negative) 09/21/20 Range/Units 18:04 WBC (4.0-10.0) 10^3/ uL RBC (4.1-5.3) 10^6/u L Hgb (11.7-16.6) g/dL Hct (42.0-52.0) % MCV (80-94) fL MCH (28.0-34.0) pg MCHC (30.0-36.0) g/dL RDW (12.1-15.1) % Plt Count (130-400) 10^3/c mm MPV (7.4-10.4) fL Neut % (Auto) % Lymph % (Auto) % Maverick % (Auto) % Eos % (Auto) % Baso % (Auto) % Neut # (Auto) (1.8-7.7) 10^3/u L Lymph # (Auto) (0.8-4.8) 10^3/u L Maverick # (Auto) (0.2-0.9) 10^3/u L Eos # (Auto) (0.0-0.8) 10^3/u L Baso # (Auto) (0.0-0.1) 10^3/u L Nucleated RBC % (a uto) % Nucleated RBCs # /100WBC PT (12.1-14.9) SECO NDS INR (0.8-1.2) APTT (23.9-36.7) SECO NDS D-Dimer 1.12 H (0-0.59) ug/mIFE U Specimen Type Sample Site ABG pH (7.35-7.45) ABG pCO2 (35-45) mmHg ABG pO2 (80.0-100.0) mmH g ABG HCO3 (22-26) mmol/L ABG O2 Saturation ABG Base Excess (-2.0-2.0) mmol/ L Pio Test A-a O2 Gradient (5-10) mmHg Hematocrit (42-52) % Hgb O2 Saturation (95-100) % Carboxyhemoglobin (0.4-20.1) %THgb Methemoglobin (0.4-1.5) % Total Hemoglobin (14-18) g/dL Sodium (131-143) mmol/L Potassium (3.5-5.0) mmol/L Glucose (70-115) mg/dL Ionized Calcium (1.1-1.4) mmol/L O2 Delivery Device FiO2 % Warehouse Person ID Chloride (98-107) mmol/L Carbon Dioxide (22-29) mmol/L Anion Gap (5-19) BUN (8-23) mg/dL Creatinine (0.7-1.2) mg/dL GFR Calculation Calculated Osmolal ity (285-295) mOsm/k g Calcium (8.5-10.5) mg/dL Total Bilirubin (0.15-1.2) mg/dL AST (0-40) U/L ALT (0-41) U/L Alkaline Phosphata se (40-130) IU/L Troponin T Baselin e (0-15) ng/L Troponin T 120 Min [place] (0-15) ng/L Delta Troponin T (0-10) ABS# NT-Pro-B Natriuret Pep (0-125) pg/mL Total Protein (6.6-8.7) g/dL Albumin (3.5-5.2) g/dL Globulin (1.3-4.6) g/dL Urine Color (Yellow) Urine Appearance (CLEAR) Urine pH (5-7) Ur Specific Gravit y (1.005-1.030) Urine Protein (Negative) Urine Glucose (UA) (Normal) Urine Ketones (Negative) Urine Blood (Negative) Urine Nitrate (Negative) Urine Bilirubin (Negative) Urine Urobilinogen (Negative) mg/dL Ur Leukocyte Shae ase (Negative) Urine Opiates Scre en (Negative) ng/mL Ur Barbiturates Sc reen (Negative) ng/mL Ur Phencyclidine S crn (Negative) ng/mL Ur Amphetamines Sc reen (Negative) ng/mL U Benzodiazepines Scrn (Negative) ng/mL Urine Cocaine Scre en (Negative) ng/mL U Marijuana (THC) Screen (Negative) ng/mL SARS-CoV-2 Ag (Rap id) (Negative) Imaging Data^: CXR: Attestation: I personally reviewed and interpreted this imaging study as follows: Radiologist's impression: Findings: No nodules, masses or effusions are seen. The heart is enlarged. The pulmonary vascularity is not increased. No pneumonia or pneumothorax is seen. Right Port-A-Cath is in good position. Monitor leads are on the chest wall. XR/XR chest 1V portable [id number] Impression: Cardiomegaly. EKG Data^: EKG 1: Attestation: I personally reviewed and interpreted this EKG as follows: EKG Interpretation Date: 09/21/20 EKG interpretation time: 14:03 Prior EKG tracings: available for review Interpretation: Sinus rhythm with a left axis deviation left bundle branch block heart rate 74 chronic abnormal EKG EKG 2: Attestation: I personally reviewed and interpreted this EKG as follows: EKG Interpretation Date: 09/21/20 EKG interpretation time: 16:45 Prior EKG tracings: available for review Interpretation: Sinus rhythm with marked left axis deviation heart rate 72 left bundle branch block chronic abnormal EKG unchanged from previous Discharge Plan Discharge Patient Disposition: Home Clinical Impression: Chronic dyspnea, Chronic edema, Morbid obesity, D-dimer, elevated Condition: Stable Prescriptions: No Action nivolumab 240 mg/24 mL solution See Rx Instructions .ROUTE .COMPLEX RF: 0 albuterol sulfate 0.63 mg/3 mL solution for nebulization 0.63 mg INHALATION Q6H PRN (Reason: shortness of breath or wheezing) 30 Days Qty: 90 RF: 0 albuterol sulfate [ProAir HFA] 90 mcg/actuation HFA aerosol inhaler 1 inh inhalation Q6H PRN (Reason: shortness of breath or wheezing) Qty: 8.5 RF: 2 aspirin 325 mg Tablet 325 mg PO PRN RF: 0 diphenhydramine HCl [Benadryl] 25 mg Capsule 25 - 50 mg PO PRN RF: 0 Consuelo-Morgan 324 mg Tablet, Effervescent See Rx Instructions .ROUTE .COMPLEX RF: 0 Lasix 40 mg tablet 60 mg PO BID@0900,1700 RF: 0 allopurinol 100 mg tablet 100 mg PO DAILY@0900 RF: 0 meloxicam 7.5 mg tablet 7.5 mg PO DAILY@0900 RF: 0 Celexa 20 mg tablet 30 mg PO DAILY@0900 RF: 0 metformin 1,000 mg tablet 1,000 mg PO DAILY@0900 RF: 0 Synthroid 200 mcg tablet 200 mcg PO DAILY@0900 RF: 0 lovastatin 20 mg tablet 20 mg PO DAILY@0900 RF: 0 atenolol 50 mg tablet 50 mg PO DAILY@0900 RF: 0 hydrochlorothiazide 12.5 mg tablet 12.5 mg PO DAILY@0900 RF: 0 Discharge Orders: Discharge ED (Routine); Ordered 09/21/20 Ordered By: Ashish Oh Referrals: NICHOLAS Ramos, [employer] [Primary Care Provider] - Discharge Diet: Advance as tolerated Discharge Activity: Resume usual activity Patient Instructions: Opioid Safety Activity Restrictions/Additional Instructions: Continue all home medications. Follow-up with primary care physician in 2 to 3 days. Coding Level of Care Code ED Primary Teaching Assistant for Juan Manuel Hardin Exam Comprehensive
[2020-09-21 15:44] VITALS: BP 123/83; PULSE 72; RESP 18; O2SAT 95
[2020-09-21 15:57] LABS: Basophils # 0.1 10^3/uL (0.0-0.1); Basophils % 0.9 %; Eosinophils # 0.4 10^3/uL (0.0-0.8); Eosinophils % 5.9 %; Hemoglobin 12.6 g/dL (11.7-16.6); Lymphocytes # 0.8 10^3/uL (0.8-4.8); Lymphocytes % 11.5 %; Mean Corpuscular HGB Conc 31.5 g/dL (30.0-36.0); Mean Corpuscular Hemoglobin 29.5 pg (28.0-34.0); Mean Corpuscular Volume 93.7 fL (80-94); Mean Platelet Volume 10.1 fL (7.4-10.4); Monocytes # 0.7 10^3/uL (0.2-0.9); Monocytes % 9.8 %; Neutrophils # 4.97 10^3/uL (1.8-7.7); Neutrophils % 71.5 %; Nucleated Red Blood Cells % 0 %; Platelet Count 223 10^3/cmm (130-400); Red Blood Count 4.27 10^6/uL (4.1-5.3)
[2020-09-21 16:10] VITALS: RESP 20
[2020-09-21] MEDS: ondansetron 2 mg/ML SDV 2 mL 4 MG IVP (16:10)
[2020-09-21] MEDS: FUROsemide 10 mg/mL SDV 10mL 80 MG IVP (16:10)
[2020-09-21] MEDS: morphine 4 mg/mL SDV 1 mL 2 MG IVP (16:10)
[2020-09-21 16:15] LABS: Sodium 137 mmol/L (136-145)
[2020-09-21 16:17] LABS: Troponin(5th) Baseline 33 ng/L (0-15)
[2020-09-21 16:20] LABS: SARS Covid-2 Antigen Negative (Negative)
[2020-09-21 16:20] LABS: INR 1.02 (0.8-1.2)
[2020-09-21 16:21] LABS: Partial Thromboplastin Time 26.1 SECONDS (23.9-36.7)
[2020-09-21 16:30] VITALS: BP 158/93; PULSE 73; RESP 20; O2SAT 98
[2020-09-21 16:39] LABS: Alanine Aminotransferase 18 U/L (0-41); Albumin Level 3.9 g/dL (3.5-5.2); Alkaline Phosphatase 95 IU/L (40-130); Anion Gap 15.7 (5-19); Aspartate Amino Transferase 16 U/L (0-40); Blood Urea Nitrogen 8 mg/dL (8-23); Calcium 8.7 mg/dL (8.5-10.5); Carbon Dioxide 28 mmol/L (22-29); Chloride 97 mmol/L (98-107); Globulin 2.5 g/dL (1.3-4.6); Glucose 173 mg/dL (65-115); NT Pro B Type Natriuretic Pept 107 pg/mL (0-125); Osmolality Calculated 286 mOsm/kg (285-295); Potassium 3.7 mmol/L (3.5-5.1); Total Bilirubin 0.5 mg/dL (0.15-1.2); Total Protein 6.4 g/dL (6.6-8.7)
[2020-09-21 16:41] LABS: Add Urine Microscopic? NO; Charge for UA Resulting for Rev
[2020-09-21 16:52] LABS: Bilirubin Urine Neg (Negative); Blood Urine Neg (Negative); Glucose Urine UA Norm (Normal); Ketones Urine Negative (Negative); Leukocyte Esterase Urine Negative (Negative); Nitrate Urine Negative (Negative); Protein Urine Neg (Negative); Urine Appearance Clear (CLEAR); Urine Color Straw (Yellow); Urobilinogen Urine Norm (Negative); pH Urine 5 (5-7)
[2020-09-21 17:37] LABS: Amphetamines Screen Urine Negative (Negative); Barbiturates Screen Urine Negative (Negative); Benzodiazepines Screen Urine Negative (Negative); Cocaine Screen Urine Negative (Negative); Opiate Screen Urine Positive (Negative); PCP Screen Urine Negative (Negative); THC Screen Urine Negative (Negative)
[2020-09-21 18:27] LABS: D Dimer 1.12 ug/mIFEU (0-0.59)
[2020-09-21 18:35] LABS: Troponin 5 2HR 32.92 ng/L (0-15)
[2020-09-21 18:37] LABS: Troponin 5 2HR Delta -0.08 ABS# (0-10)
--- NOTE | 2020-09-21 20:20 | ECG_ITS ---
[facility] Test Date: 2020-09-21 Pat Name: Mark Li Department: Room: Gender: Male Want Ad Receiver: tab : 1950 Requested By: Ashish Oh Order Number: [id number] Jose Miguel MD: Ric Montana M.D. Measurements Intervals [place] Rate: 74 P: -28 MO: 138 QRS: -49 QRSD: 156 T: 30 QT: 388 QTc: 432 Interpretive Statements SINUS RHYTHM MARKED LEFT AXIS DEVIATION [QRS AXIS < -30] LEFT BUNDLE BRANCH BLOCK [120+ ms QRS DURATION, 80+ ms Q/S IN V1/V2, 85+ ms R IN I/aVL/V5/V6] Compared to ECG 08/11/2020 14:55:45 Sinus bradycardia no longer present Electronically Signed On 09-21-2020 23:48:12 CDT by Ric Montana M.D. [email or web address]
== END 2020-09-21 20:00 | disposition home or self-care (01) ==
PROVIDERS: Emergency Provider Emergency Medicine; PCP Nurse Practitioner Family
DX: R06.09 Other forms of dyspnea (principal); R60.9 Edema, unspecified; E66.01 Morbid (severe) obesity due to excess calories; R79.89 Other specified abnormal findings of blood chemistry; Z79.82 Long term (current) use of aspirin; Z79.84 Long term (current) use of oral hypoglycemic drugs; E11.9 Type 2 diabetes mellitus without complications; I10 Essential (primary) hypertension; Z20.822 Contact with and (suspected) exposure to COVID-19; Z79.899 Other long term (current) drug therapy
CPT/HCPCS: 36600; 71045; 80051; 80053; 80306; 81003; 82330; 82805; 83880; 84484; 85025; 85378; 85610; 85730; 87426; 93005; 96374; 96375; 99284; J1940; J2270; J2405

== ENCOUNTER 2020-09-23 10:27 | Emergency (ER) | payer MEDICARE, SELFPAY ==
[2020-09-23] VITALS (12 sets, daily range): BP systolic 108–162; BP diastolic 61–89; PULSE 66–103; RESP 15–22; TEMP 36.8; O2SAT 90–96; BMI 45.6
--- NOTE | 2020-09-23 12:12 | XRR_ITS ---
PROCEDURE INFORMATION: Exam: XR Chest Exam date and time: 09/23/2020 12:12 PM Age: 70 years old Clinical indication: Dyspnea TECHNIQUE: Imaging protocol: XR of the chest. Views: 1 view. COMPARISON: CR XR chest 1V portable [id number] 09/21/2020 2:47 PM FINDINGS: Tubes, catheters and devices: There is a right IJ catheter whose tip is at the cavoatrial junction. Lungs: Unremarkable. No consolidation. Pleural spaces: Unremarkable. No pleural effusion. No pneumothorax. Heart/Mediastinum: Cardiomegaly is identified. Bones/joints: Unremarkable. XR/XR chest 1V portable [id number] IMPRESSION: There are no acute concerning abnormalities.
--- NOTE | 2020-09-23 12:15 | USR_ITS ---
PROCEDURE INFORMATION: Exam: US Duplex Left Lower Extremity Veins, Limited Exam date and time: 09/23/2020 12:15 PM Age: 70 years old Clinical indication: Pain; Swelling (edema) of limb; Lower extremity, left; Leg, lower; Additional info: R/O dvt TECHNIQUE: Imaging protocol: Real-time Duplex ultrasound of the Left Lower Extremity with 2-D quiroga scale, color Doppler flow and spectral waveform analysis with image documentation. Limited exam focused on the left lower extremity veins. COMPARISON: [place] [id number] 07/27/2015 9:55 AM FINDINGS: Left deep veins: Unremarkable. The common femoral, femoral, proximal profunda femoral and popliteal veins are patent without thrombus. Normal Doppler waveforms. Normal compressibility and/or augmentation response. Left superficial veins: Unremarkable. Saphenofemoral junction is patent without thrombus. Soft tissues: There is superficial calf edema. No Rios's cyst. US/CV venous duplex [facility] [id number] IMPRESSION: No evidence of deep vein thrombosis.
--- NOTE | 2020-09-23 12:15 | ECG_ITS ---
[facility] Test Date: 2020-09-23 Pat Name: Mark Li Department: Room: Gender: Male Health Unit Coordinator: : 1950 Requested By: Guanakito Aponte Order Number: [id number] Gillespie MD: Ignacio Delgado M.D. Measurements Intervals [place] Rate: 64 P: 77 MN: 199 QRS: -21 QRSD: 140 T: 17 QT: 422 QTc: 438 Interpretive Statements SINUS RHYTHM LEFT BUNDLE BRANCH BLOCK [120+ ms QRS DURATION, 80+ ms Q/S IN V1/V2, 85+ ms R IN I/aVL/V5/V6] Compared to ECG 09/21/2020 14:03:54 Left-axis deviation no longer present Electronically Signed On 09-23-2020 19:31:20 CDT by Ignacio Delgado M.D. [id number]
--- NOTE | 2020-09-23 12:37 | W.ED.SOB ---
HPI - SOB/Dyspnea General: Chief Complaint: Shortness of Breath/Dyspnea Stated Complaint: SOB Time Seen by Provider: 09/23/20 11:58 History of Present Illness: HPI Narrative: The patient is a 70-year-old male with past medical history COPD, type 2 diabetes, hypothyroid, prostate and brain cancer chronically which are being treated at [facility] and status post chemo and radiation. He also was recently diagnosed with grade 1 diastolic CHF seen on recent echocardiogram in the past month. He comes to the ER complaining that he was seen here the other day and discharged home. He says he is still short of breath and his left leg has been developing a red rash which is warm to the touch and hurts him. He is worried he could be having a blood clot there. It appears more like a cellulitis picture. He says he itches his shins chronically and sometimes gets infections there. The patient's left leg is red and swollen. Right leg has abrasions from scratching. MD elicited complaint: shortness of breath and cough Pertinent past history: COPD, congestive heart failure and diabetes Context: recent illness Timing: constant Severity: moderate Exacerbating factors: exertion and coughing Relieving factors: rest Known history of: COPD, congestive heart failure and diabetes Associated symptoms: Reports cough; Deny abdominal pain, chest pain, dizziness, extremity pain, orthopnea, palpitations or polyuria Review of Systems General: Reports: 10 or more systems reviewed and unremarkable except in HPI and below Const: Denies: fatigue Eyes: Denies: change in vision, blurry vision or eye redness ENMT: Denies: throat pain, swelling of lips/tongue, ear or mastoid pain or nasal congestion Card: Denies: chest pain, palpitations, irregular heart rhythm, edema, dyspnea on exertion or orthopnea Resp: Reports: dyspnea, non-productive cough and wheezing; Denies: productive cough GI: Denies: abdominal pain, diarrhea or GI cramping : Denies: flank pain, urinary frequency or urinary urgency Musc: Denies: neck pain, back pain, extremity pain, joint pain, joint redness, limited range of motion or muscle weakness Skin/Breast: Reports: other (LLE red painful rash/swelling. cellulitis); Denies: rash, pruritus, erythema, skin pain or skin tenderness Neuro: Denies: headache(s), numbness in extremities, weakness in extremities, sensory changes, difficulty walking, dizziness, confusion or Slurred speech present Psych: Denies: anxiety or depression Endo: Denies: polyuria All/Imm: Denies: urticaria, throat swelling or tongue swelling PFSH ED PFSH: Medical History Anxiety and depression Arthritis Brain tumor Close exposure to COVID-19 virus Diabetes Edema Essential hypertension Hypothyroid Lower respiratory tract infection [place] reservoir present Rash of body Shortness of breath Wheezing Physical Exam Const: COMMON NORMALS: no acute distress, average body habitus, patient oriented x3, no limitations, healthy appearing, alert and well nourished GENERAL APPEARANCE: cooperative, comfortable, well kempt and well developed ORIENTATION/CONSCIOUSNESS: Yes awake, Yes oriented to person, Yes oriented to place and Yes oriented to time HENMT: COMMON NORMALS: normocephalic, external ears normal and Normal external nose present HEAD & SCALP: normal to inspection and normocephalic NOSE: Normal external nose present EXTERNAL EAR: Yes external ears normal MOUTH: Normal oral and palatal mucosa present THROAT: posterior oropharynx normal Eye: COMMON NORMALS: Equal, round and reactive pupils present and EOMs intact bilaterally GENERAL EYE: appearance normal, both eyes and all related structures PUPIL: Yes Equal, round and reactive pupils present Neck/C-Spine: COMMON NORMALS: full ROM, no lymphadenopathy, no meningeal signs and no JVD GENERAL: Yes normal visual inspection Lymph: LYMPHATIC: no lymphadenopathy noted Chest: COMMONS NORMALS: normal inspection of the chest and normal palpation of entire chest wall Resp: COMMON NORMALS: normal respiratory effort, No retractions, No use of accessory muscles and percussion normal EFFORT & INSPECTION: Yes able to speak in complete sentences AUSCULTATION: wheezes PERCUSSION: percussion normal Cardio: COMMON NORMALS: no JVD, regular rate, regular rhythm, S1 normal heart sound present, S2 normal heart sound present and Peripheral pulses 2+ throughout RATE: regular rate RHYTHM: regular rhythm HEART SOUNDS: S1 normal heart sound present and S2 normal heart sound present PERIPHERAL PULSES: Peripheral pulses 2+ throughout GI: COMMON NORMALS: Normal to inspection, nondistended, normoactive bowel sounds present, Soft to palpation, non-tender and no masses INSPECTION: Yes normal to inspection PALPATION: Yes Soft to palpation : COMMON NORMALS: Yes no CVA tenderness BLADDER/KIDNEY EXAM: Yes no CVA tenderness Back/Pelvis: COMMON NORMALS: no CVA tenderness, thoracic and lumbar spine normal to inspection, no thoracic nor lumbar tenderness and thoraco-lumbar ROM normal Extremity: COMMON NORMALS: normal to inspection, full ROM, capillary refill normal and no joint enlargement GENERAL: Yes normal exam except as noted OTHER: Left lower extremity cellulitis 15 cm in diameter by 10 on the left anterior tibial region. There are scratches where he has been scratching there. Appropriate tenderness to palpation. Right barrientos has very mild abrasions from scratching and very very mild erythema not quite a cellulitis picture yet. Bilateral Neuro: COMMON NORMALS: patient oriented x3, CN's II-XII intact bilaterally, moves all extremities, no focal motor deficits, no sensory deficits noted and gait normal SENSORIUM/ORIENTATION: Yes alert, Yes oriented to person, Yes oriented to place and Yes oriented to time MENINGEAL SIGNS: Yes no meningeal signs Psych: COMMON NORMALS: mental status grossly normal, Normal thought process present, cooperative, normal affect and speech normal APPEARANCE: Yes well kempt ATTITUDE: Yes calm SPEECH: Yes normal speech THOUGHT PROCESS: Normal thought process present Skin: COMMON NORMALS: no rashes or lesions noted GENERAL SKIN EXAM: no rashes or lesions noted Course Vital Signs: Vital signs: Vital Signs Temperature 98.3 F 09/23/20 10:38 Pulse Rate 79 09/23/20 17:04 Respiratory Rate 22 H 09/23/20 17:04 Blood Pressure 150/85 09/23/20 14:30 Pulse Oximetry 91 09/23/20 17:04 MDM - SOB/Dyspnea MDM Narrative: Medical decision making narrative: The patient came to the ER complaining of continued and worsened shortness of breath as well as developing left lower extremity cellulitis. Doppler negative for DVT in the area. His D-dimer was again elevated and I ordered a CT angiogram to rule out PE as it is a significant concern for him. He refused it and said he has gotten 1 in the past couple days. I discussed with him that he actually had an echocardiogram done which showed grade 1 diastolic dysfunction, this was not a CT angiogram of his chest. He refused this last visit a couple days ago as well. I discussed there is a possibility he has a blood clot which could worsen and cause . He understands and accepts the consequences and signed AGAINST MEDICAL ADVICE. For a likely bronchitis he was treated with albuterol, Keflex, and azithromycin which will also treat his cellulitis. He was given a Medrol dose pack to help inflammation as he has COPD as well. Lab Data: Labs: Lab Results 09/23/20 09/23/20 09/23/20 Range/Units 12:30 12:30 12:30 WBC 5.9 (4.0-10.0) 10^3/ uL RBC 4.15 (4.1-5.3) 10^6/u L Hgb 12.3 (11.7-16.6) g/dL Hct 39.5 L (42.0-52.0) % MCV 95.2 H (80-94) fL MCH 29.6 (28.0-34.0) pg MCHC 31.1 (30.0-36.0) g/dL RDW 15.0 (12.1-15.1) % Plt Count 206 (130-400) 10^3/c mm MPV 10.0 (7.4-10.4) fL Neut % (Auto) 65.8 % Lymph % (Auto) 12.9 % [place] % (Auto) 12.9 % Eos % (Auto) 6.9 % Baso % (Auto) 1.0 % Neut # (Auto) 3.89 (1.8-7.7) 10^3/u L Lymph # (Auto) 0.8 (0.8-4.8) 10^3/u L [place] # (Auto) 0.8 (0.2-0.9) 10^3/u L Eos # (Auto) 0.4 (0.0-0.8) 10^3/u L Baso # (Auto) 0.1 (0.0-0.1) 10^3/u L Nucleated RBC % (a uto) 0 % Nucleated RBCs # 0.0 /100WBC D-Dimer (0-0.59) ug/mIFE U Sodium 137 (136-145) mmol/L Potassium 3.8 (3.5-5.1) mmol/L Chloride 95 L (98-107) mmol/L Carbon Dioxide 30 H (22-29) mmol/L Anion Gap 15.8 (5-19) BUN 12 (8-23) mg/dL Creatinine 0.8 (0.7-1.2) mg/dL GFR Calculation Not Reportable Glucose 206 H (65-115) mg/dL Calculated Osmolal ity 290 (285-295) mOsm/k g Lactate 1.6 (0.5-2.2) mmol/L Calcium 8.7 (8.5-10.5) mg/dL Total Bilirubin 0.5 (0.15-1.2) mg/dL AST 17 (0-40) U/L ALT 16 (0-41) U/L Alkaline Phosphata se 90 (40-130) IU/L Troponin T Baselin e (0-15) ng/L Troponin T 120 Min [place] (0-15) ng/L Delta Troponin T (0-10) ABS# NT-Pro-B Natriuret Pep 18 (0-125) pg/mL Total Protein 5.8 L (6.6-8.7) g/dL Albumin 3.7 (3.5-5.2) g/dL Globulin 2.1 (1.3-4.6) g/dL Urine Color (Yellow) Urine Appearance (CLEAR) Urine pH (5-7) Ur Specific Gravit y (1.005-1.030) Urine Protein (Negative) Urine Glucose (UA) (Normal) Urine Ketones (Negative) Urine Blood (Negative) Urine Nitrate (Negative) Urine Bilirubin (Negative) Urine Urobilinogen (Negative) mg/dL Ur Leukocyte Shae ase (Negative) SARS-CoV-2 Ag (Rap id) (Negative) 09/23/20 09/23/20 09/23/20 Range/Units 12:30 12:30 13:17 WBC (4.0-10.0) 10^3/ uL RBC (4.1-5.3) 10^6/u L Hgb (11.7-16.6) g/dL Hct (42.0-52.0) % MCV (80-94) fL MCH (28.0-34.0) pg MCHC (30.0-36.0) g/dL RDW (12.1-15.1) % Plt Count (130-400) 10^3/c mm MPV (7.4-10.4) fL Neut % (Auto) % Lymph % (Auto) % [place] % (Auto) % Eos % (Auto) % Baso % (Auto) % Neut # (Auto) (1.8-7.7) 10^3/u L Lymph # (Auto) (0.8-4.8) 10^3/u L [place] # (Auto) (0.2-0.9) 10^3/u L Eos # (Auto) (0.0-0.8) 10^3/u L Baso # (Auto) (0.0-0.1) 10^3/u L Nucleated RBC % (a uto) % Nucleated RBCs # /100WBC D-Dimer (0-0.59) ug/mIFE U Sodium (136-145) mmol/L Potassium (3.5-5.1) mmol/L Chloride (98-107) mmol/L Carbon Dioxide (22-29) mmol/L Anion Gap (5-19) BUN (8-23) mg/dL Creatinine (0.7-1.2) mg/dL GFR Calculation Glucose (65-115) mg/dL Calculated Osmolal ity (285-295) mOsm/k g Lactate (0.5-2.2) mmol/L Calcium (8.5-10.5) mg/dL Total Bilirubin (0.15-1.2) mg/dL AST (0-40) U/L ALT (0-41) U/L Alkaline Phosphata se (40-130) IU/L Troponin T Baselin e 27 H (0-15) ng/L Troponin T 120 Min [place] (0-15) ng/L Delta Troponin T (0-10) ABS# NT-Pro-B Natriuret Pep (0-125) pg/mL Total Protein (6.6-8.7) g/dL Albumin (3.5-5.2) g/dL Globulin (1.3-4.6) g/dL Urine Color Yellow (Yellow) Urine Appearance Clear (CLEAR) Urine pH 5 (5-7) Ur Specific Gravit y 1.020 (1.005-1.030) Urine Protein Neg (Negative) Urine Glucose (UA) Trace H (Normal) Urine Ketones 1+ H (Negative) Urine Blood Neg (Negative) Urine Nitrate Negative (Negative) Urine Bilirubin 1+ H (Negative) Urine Urobilinogen 4 H (Negative) mg/dL Ur Leukocyte Shae ase Negative (Negative) SARS-CoV-2 Ag (Rap id) Negative (Negative) 09/23/20 09/23/20 Range/Units 13:47 15:04 WBC (4.0-10.0) 10^3/ uL RBC (4.1-5.3) 10^6/u L Hgb (11.7-16.6) g/dL Hct (42.0-52.0) % MCV (80-94) fL MCH (28.0-34.0) pg MCHC (30.0-36.0) g/dL RDW (12.1-15.1) % Plt Count (130-400) 10^3/c mm MPV (7.4-10.4) fL Neut % (Auto) % Lymph % (Auto) % [place] % (Auto) % Eos % (Auto) % Baso % (Auto) % Neut # (Auto) (1.8-7.7) 10^3/u L Lymph # (Auto) (0.8-4.8) 10^3/u L [place] # (Auto) (0.2-0.9) 10^3/u L Eos # (Auto) (0.0-0.8) 10^3/u L Baso # (Auto) (0.0-0.1) 10^3/u L Nucleated RBC % (a uto) % Nucleated RBCs # /100WBC D-Dimer 2.56 H (0-0.59) ug/mIFE U Sodium (136-145) mmol/L Potassium (3.5-5.1) mmol/L Chloride (98-107) mmol/L Carbon Dioxide (22-29) mmol/L Anion Gap (5-19) BUN (8-23) mg/dL Creatinine (0.7-1.2) mg/dL GFR Calculation Glucose (65-115) mg/dL Calculated Osmolal ity (285-295) mOsm/k g Lactate (0.5-2.2) mmol/L Calcium (8.5-10.5) mg/dL Total Bilirubin (0.15-1.2) mg/dL AST (0-40) U/L ALT (0-41) U/L Alkaline Phosphata se (40-130) IU/L Troponin T Baselin e (0-15) ng/L Troponin T 120 [address] [place] 24.97 H (0-15) ng/L Delta Troponin T -2.03 L (0-10) ABS# NT-Pro-B Natriuret Pep (0-125) pg/mL Total Protein (6.6-8.7) g/dL Albumin (3.5-5.2) g/dL Globulin (1.3-4.6) g/dL Urine Color (Yellow) Urine Appearance (CLEAR) Urine pH (5-7) Ur Specific Gravit y (1.005-1.030) Urine Protein (Negative) Urine Glucose (UA) (Normal) Urine Ketones (Negative) Urine Blood (Negative) Urine Nitrate (Negative) Urine Bilirubin (Negative) Urine Urobilinogen (Negative) mg/dL Ur Leukocyte Shae ase (Negative) SARS-CoV-2 Ag (Rap id) (Negative) Discharge Plan Discharge Patient Disposition: Left Against Medical Advice Clinical Impression: Bronchitis, Cellulitis Condition: Stable Prescriptions: New cephalexin 500 mg capsule 500 mg PO BID 10 Days Qty: 20 RF: 0 albuterol sulfate 90 mcg/actuation HFA aerosol inhaler 2 inh inhalation Q6H PRN (Reason: shortness of breath or wheezing) 30 Days RF: 0 azithromycin 250 mg tablet 250 mg PO DAILY 4 Days Qty: 6 RF: 0 Medrol (Nayan) 4 mg tablets,dose pack See Rx Instructions .ROUTE .COMPLEX Qty: 21 RF: 0 hydrocodone-acetaminophen 5-325 mg tablet 1 tab PO Q6H PRN (Reason: pain) Qty: 10 RF: 0 No Action nivolumab 240 mg/24 mL solution See Rx Instructions .ROUTE .COMPLEX RF: 0 albuterol sulfate 0.63 mg/3 mL solution for nebulization 0.63 mg INHALATION Q6H PRN (Reason: shortness of breath or wheezing) 30 Days Qty: 90 RF: 0 albuterol sulfate [ProAir HFA] 90 mcg/actuation HFA aerosol inhaler 1 inh inhalation Q6H PRN (Reason: shortness of breath or wheezing) Qty: 8.5 RF: 2 aspirin 325 mg Tablet 325 mg PO PRN RF: 0 diphenhydramine HCl [Benadryl] 25 mg Capsule 25 - 50 mg PO PRN RF: 0 Consuelo-Carmel 324 mg Tablet, Effervescent See Rx Instructions .ROUTE .COMPLEX RF: 0 Lasix 40 mg tablet 60 mg PO BID@0900,1700 RF: 0 allopurinol 100 mg tablet 100 mg PO DAILY@0900 RF: 0 meloxicam 7.5 mg tablet 7.5 mg PO DAILY@0900 RF: 0 Celexa 20 mg tablet 30 mg PO DAILY@0900 RF: 0 metformin 1,000 mg tablet 1,000 mg PO DAILY@0900 RF: 0 Synthroid 200 mcg tablet 200 mcg PO DAILY@0900 RF: 0 lovastatin 20 mg tablet 20 mg PO DAILY@0900 RF: 0 atenolol 50 mg tablet 50 mg PO DAILY@0900 RF: 0 hydrochlorothiazide 12.5 mg tablet 12.5 mg PO DAILY@0900 RF: 0 Referrals: NICHOLAS Ramos, MACHINE DYER [Primary Care Provider] - Discharge Diet: Advance as tolerated Discharge Activity: Resume usual activity Patient Instructions: Cellulitis (ED), Acute Bronchitis (ED) Activity Restrictions/Additional Instructions: You likely have acute bronchitis and possibly pneumonia or a blood clot. You have refused the CT angiogram and been notified that you could have possibly a blood clot condition which could worsen. Please take the steroids, antibiotics, and inhalers to help you improve your condition and return to the ER at any time for further evaluation. Follow-up with your primary care physician Friday. Coding Level of Care Code ED Home Health Outreach Coordinator for [facility] Fwmore[facility] Exam Comprehensive
[2020-09-23] MEDS: morphine 4 mg/mL SDV 1 mL 2 MG IVP (12:47)
[2020-09-23] MEDS: cefTRIAXone 1,000 MG in sodium chloride 0.9% (plus) 100 ML 200 MG IV (12:48)
[2020-09-23 12:58] LABS: Basophils # 0.1 10^3/uL (0.0-0.1); Eosinophils # 0.4 10^3/uL (0.0-0.8); Eosinophils % 6.9 %; Hematocrit 39.5 % (42.0-52.0); Hemoglobin 12.3 g/dL (11.7-16.6); Lymphocytes # 0.8 10^3/uL (0.8-4.8); Lymphocytes % 12.9 %; Mean Corpuscular HGB Conc 31.1 g/dL (30.0-36.0); Mean Corpuscular Hemoglobin 29.6 pg (28.0-34.0); Mean Corpuscular Volume 95.2 fL (80-94); Monocytes # 0.8 10^3/uL (0.2-0.9); Monocytes % 12.9 %; Neutrophils # 3.89 10^3/uL (1.8-7.7); Neutrophils % 65.8 %; Nucleated Red Blood Cells % 0 %; Platelet Count 206 10^3/cmm (130-400); Red Blood Count 4.15 10^6/uL (4.1-5.3); White Blood Count 5.9 10^3/uL (4.0-10.0)
[2020-09-23 13:19] LABS: Lactate (Lactic Acid level) 1.6 mmol/L (0.5-2.2); Troponin(5th) Baseline 27 ng/L (0-15)
[2020-09-23 13:23] LABS: Alanine Aminotransferase 16 U/L (0-41); Albumin Level 3.7 g/dL (3.5-5.2); Alkaline Phosphatase 90 IU/L (40-130); Anion Gap 15.8 (5-19); Aspartate Amino Transferase 17 U/L (0-40); Blood Urea Nitrogen 12 mg/dL (8-23); Calcium 8.7 mg/dL (8.5-10.5); Carbon Dioxide 30 mmol/L (22-29); Chloride 95 mmol/L (98-107); Globulin 2.1 g/dL (1.3-4.6); Glucose 206 mg/dL (65-115); NT Pro B Type Natriuretic Pept 18 pg/mL (0-125); Osmolality Calculated 290 mOsm/kg (285-295); Potassium 3.8 mmol/L (3.5-5.1); Sodium 137 mmol/L (136-145); Total Bilirubin 0.5 mg/dL (0.15-1.2); Total Protein 5.8 g/dL (6.6-8.7)
[2020-09-23 13:55] LABS: Add Urine Microscopic? NO; Charge for UA Resulting for Rev
[2020-09-23] MEDS: albuterol 8 gm MDI 2 PUFF INHALATION (13:57)
[2020-09-23 14:04] LABS: Bilirubin Urine 1+ (Negative); Blood Urine Neg (Negative); Glucose Urine UA Trace (Normal); Ketones Urine 1+ (Negative); Leukocyte Esterase Urine Negative (Negative); Nitrate Urine Negative (Negative); Protein Urine Neg (Negative); Urine Appearance Clear (CLEAR); Urine Color Yellow (Yellow); Urobilinogen Urine 4 mg/dL (Negative); pH Urine 5 (5-7)
[2020-09-23 14:13] LABS: D Dimer 2.56 ug/mIFEU (0-0.59)
[2020-09-23 15:36] LABS: Troponin 5 2HR 24.97 ng/L (0-15)
[2020-09-23 15:57] LABS: SARS Covid-2 Antigen Negative (Negative)
[2020-09-23 15:58] LABS: Troponin 5 2HR Delta -2.03 ABS# (0-10)
== END 2020-09-23 17:11 | disposition left against medical advice (07) ==
PROVIDERS: Emergency Provider Family Medicine; PCP Nurse Practitioner Family
DX: J40 Bronchitis, not specified as acute or chronic (principal); L03.116 Cellulitis of left lower limb; Z79.82 Long term (current) use of aspirin; Z53.21 Procedure and treatment not carried out due to patient leaving prior to being seen by health care provider; E11.9 Type 2 diabetes mellitus without complications; I10 Essential (primary) hypertension; Z20.822 Contact with and (suspected) exposure to COVID-19
CPT/HCPCS: 71045; 80053; 81003; 83605; 83880; 84484; 85025; 85378; 87040; 87426; 93005; 93971; 94640; 96365; 96375; 99284; J0696; J2270; J3535

== ENCOUNTER → 2020-09-26 11:40 | Outpatient (BNVA) | payer MEDICARE, SELFPAY | PROVIDERS: PCP Nurse Practitioner Family; Visit Provider Internal Medicine Pulmonary Disease | DX: J44.1 Chronic obstructive pulmonary disease with (acute) exacerbation (principal); R06.09 Other forms of dyspnea; R06.2 Wheezing; R06.02 Shortness of breath; E66.01 Morbid (severe) obesity due to excess calories; R60.9 Edema, unspecified; D49.6 Neoplasm of unspecified behavior of brain; J30.2 Other seasonal allergic rhinitis; R91.1 Solitary pulmonary nodule; I10 Essential (primary) hypertension; E11.9 Type 2 diabetes mellitus without complications | CPT/HCPCS: 82785; 83880; 86003 ==

== ENCOUNTER → 2021-07-30 13:06 | Outpatient (BNVA) | payer MEDICARE, SELFPAY | PROVIDERS: PCP Nurse Practitioner Family; Referring Provider Registered Nurse; Visit Provider Specialist | DX: G56.03 Carpal tunnel syndrome, bilateral upper limbs (principal); E11.42 Type 2 diabetes mellitus with diabetic polyneuropathy; Z79.84 Long term (current) use of oral hypoglycemic drugs | CPT/HCPCS: 95910; 95912 ==

== ENCOUNTER → 2021-10-24 10:08 | Outpatient (BNVA) | payer MEDICARE, SELFPAY | PROVIDERS: PCP Nurse Practitioner Family; Referring Provider Registered Nurse; Visit Provider Specialist | DX: G56.03 Carpal tunnel syndrome, bilateral upper limbs (principal) | CPT/HCPCS: 73110 ==

== ENCOUNTER → 2021-11-07 14:47 | Outpatient (BNVA) | payer MEDICARE, SELFPAY | PROVIDERS: PCP Nurse Practitioner Family; Visit Provider Internal Medicine Pulmonary Disease | DX: Z01.811 Encounter for preprocedural respiratory examination (principal); R06.09 Other forms of dyspnea; R06.2 Wheezing; E66.01 Morbid (severe) obesity due to excess calories; R60.9 Edema, unspecified; J30.89 Other allergic rhinitis; J30.2 Other seasonal allergic rhinitis; R91.1 Solitary pulmonary nodule; J44.9 Chronic obstructive pulmonary disease, unspecified; Z68.42 Body mass index [BMI] 45.0-49.9, adult; Z87.891 Personal history of nicotine dependence; Z85.46 Personal history of malignant neoplasm of prostate; Z92.21 Personal history of antineoplastic chemotherapy; Z51.0 Encounter for antineoplastic radiation therapy | CPT/HCPCS: 99214 ==

== ENCOUNTER → 2021-12-03 14:03 | Outpatient (BNVA) | payer MEDICARE, SELFPAY | PROVIDERS: PCP Nurse Practitioner Family; Visit Provider Specialist | DX: M65.341 Trigger finger, right ring finger; G56.03 Carpal tunnel syndrome, bilateral upper limbs | CPT/HCPCS: 99214 ==

== ENCOUNTER → 2022-02-21 10:51 | Outpatient (BNVA) | payer MEDICARE, SELFPAY | PROVIDERS: PCP Nurse Practitioner Family; Visit Provider Registered Nurse | DX: E11.9 Type 2 diabetes mellitus without complications (principal); E03.9 Hypothyroidism, unspecified | CPT/HCPCS: 80053; 83036; 84443; 85025 ==

== ENCOUNTER 2023-04-08 06:17 | Inpatient (IN) | payer MEDICARE, MEDICAID, SELFPAY ==
[2023-04-08] VITALS (60 sets, daily range): BP systolic 125–219; BP diastolic 54–112; PULSE 58–70; RESP 16–20; TEMP 36.4–37; O2SAT 85–97; BMI 50.1; BMI 51.1
--- NOTE | 2023-04-08 06:35 | CT_ITS ---
WS: [id number] CT ABDOMEN AND PELVIS WITH CONTRAST HISTORY: abdominal distention TECHNIQUE: Imaging performed of the abdomen and pelvis with IV contrast. Single phase imaging of the abdomen. Coronal and sagittal reformats are submitted. All CT scans at [facility] use at [address] one of these dose optimization techniques: automated exposure control; mA and/or kV adjustment per patient size (includes targeted exams where dose is matched to clinical indication); or iterative re construction. IV CONTRAST: Omnipaque 350; 100 mL IV. Oral contrast: No DLP: 1915.72 mGy.cm COMPARISON: 07/27/2015 and 04/29/2007 Lower thorax: Lung bases are clear. Mild cardiomegaly. No hiatal hernia. There is a residual distal R IGHT paraesophageal lymph node which is partially calcified measuring 1.7 cm. Significantly decreased in size since 2007 and may be from treated disease. Liver/biliary system: Normal size with no intrahepatic dilatation. Gallbladder: Prior cholecystectomy. No bile duct dilatation. Pancreas: Normal size pancreas and pancreatic duct. No adjacent inflammation. Spleen: Normal size spleen. No mass or infarct. Adrenal glands: Normal. Right kidney: Mild renal atrophy with a scattered too small to characterize hypodensities. No obstruc tion. Left kidney: Bilateral acquired cysts. The largest cyst measures 9.6 x 8.9 cm. No renal obstruction. Aorta: Mild atherosclerosis with no aneurysm. Lymphadenopathy: None. Free fluid: None. GI tract: No obstruction. Normal appendix. No evidence for acute diverticulitis. Abdominal wall: There is marked soft tissue infiltration of the abdominal wall subcutaneous fat predo minantly below the level of the umbilicus. No focal fluid collection or mass. Pelvis: Bilateral inguinal canals are patent. There is scrotal wall thickening and a large bilateral hydrocele. Posterior lumbar fusion at L4-5. Bones: Unremarkable. IMPRESSION: 1. Scrotal wall thickening with large bilateral hydroceles. 2. No GI tract obstruction. Normal appendix. 3. Soft tissue infiltration within the abdominal wall below the level of the umbilicus. Differential includes soft tissue anasarca and cellulitis. 4. LEFT renal cysts. 5. Prior cholecystectomy. 6. No ascites or adenopathy within the abdomen or pelvis.
--- NOTE | 2023-04-08 06:35 | USR_ITS ---
PROCEDURE INFORMATION: Exam: US Scrotum Exam date and time: 04/08/2023 7:00 AM Age: 72 years old Clinical indication: Swelling, testicles or scrotum; Scrotum pain; Additional info: Testicular pain and swelling TECHNIQUE: Imaging protocol: Real-time ultrasound of the scrotum and contents with color Doppler and image documentation. COMPARISON: No relevant prior studies available. FINDINGS: Right testicle: Normal. No mass. No torsion. Normal vascular flow. Small hydrocele. Left testicle: Normal. No mass. No torsion. Normal vascular flow. Small hydrocele. Epididymides: Normal. Small cysts seen on the left. Scrotum/soft tissues: Large bilateral inguinal hernias containing mainly fat. US/US scrotum [id number] IMPRESSION: Bilateral inguinal hernias.
--- NOTE | 2023-04-08 06:42 | XRR_ITS ---
PROCEDURE INFORMATION: Exam: XR Chest Exam date and time: 04/08/2023 7:35 AM Age: 72 years old Clinical indication: Cough; Additional info: Cough congestion TECHNIQUE: Imaging protocol: Radiologic exam of the chest. Views: 1 view. COMPARISON: CR XR chest 1V portable [id number] 09/23/2020 1:07 PM FINDINGS: Tubes, catheters and devices: Infusion port enters from the right and terminates in the SVC. Lungs: Unremarkable. No consolidation. Pleural spaces: Unremarkable. No pleural effusion. No pneumothorax. Heart/Mediastinum: Unremarkable. No cardiomegaly. Bones/joints: Unremarkable. XR/XR chest 1V portable [id number] IMPRESSION: No acute findings.
--- NOTE | 2023-04-08 06:43 | ECG_ITS ---
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 Measurements Intervals [place] Rate: 59 P: 12 WV: 204 QRS: -43 QRSD: 143 T: 12 QT: 449 QTc: 447 Interpretive Statements SINUS BRADYCARDIA LEFT AXIS DEVIATION [QRS AXIS < -30] LEFT BUNDLE BRANCH BLOCK [120+ ms QRS DURATION, 80+ ms Q/S IN V1/V2, 85+ ms R IN I/aVL/V5/V6] Compared to ECG 09/23/2020 12:47:26 Left-axis deviation now present Sinus rhythm no longer present Electronically Signed On 04-08-2023 18:30:17 COMPUTED TOMOGRAPHY TECHNICIAN by Ric Montana M.D. [email or web address]
[2023-04-08 08:02] LABS: Basophils # 0.1 10^3/uL (0.0-0.1); Basophils % 0.9 %; Eosinophils # 0.9 10^3/uL (0.0-0.8); Eosinophils % 12.7 %; Lymphocytes # 0.9 10^3/uL (0.8-4.8); Lymphocytes % 13.9 %; Mean Corpuscular HGB Conc 31.4 g/dL (30-55); Mean Corpuscular Hemoglobin 28.4 pg (27-33); Mean Corpuscular Volume 90.5 fl (82-101); Mean Platelet Volume 9.7 fL (7.4-10.4); Monocytes # 0.6 10^3/uL (0.2-0.9); Monocytes % 8.9 %; Neutrophils # 4.24 10^3/uL (1.8-7.7); Neutrophils % 63.2 %; Nucleated Red Blood Cells % 0 %; Platelet Count 246 10^3/cmm (157-399); Red Blood Count 4.64 10^6/uL (3.85-5.65); Red Cell Distribution Width 15.6 % (12.1-15.1); White Blood Count 6.71 10^3/uL (3.29-11.43)
[2023-04-08 08:27] LABS: Troponin(5th) Baseline 36 ng/L (0-15)
[2023-04-08 08:33] LABS: Alanine Aminotransferase 25 U/L (0-41); Albumin Level 3.7 g/dL (3.5-5.2); Alkaline Phosphatase 101 U/L (40-130); Aspartate Amino Transferase 24 U/L (0-40); Blood Urea Nitrogen 11 mg/dL (8-23); Calcium 9.2 mg/dL (8.5-10.5); Carbon Dioxide 25 mmol/L (22-29); Chloride 102 mmol/L (98-107); Globulin 2.1 g/dL (1.3-4.6); Glucose 156 mg/dL (65-115); Lipase 29 U/L (13-60); NT Pro B Type Natriuretic Pept 244 pg/mL (0-125); Osmolality Calculated 289 mOsm/kg (285-295); Sodium 138 mmol/L (136-145); Total Bilirubin 0.6 mg/dL (0.15-1.2); Total Protein 5.8 g/dL (6.6-8.7)
[2023-04-08] MEDS: iohexol 350 mg/mL 500 mL Btl (per mL) IV (09:08)
--- NOTE | 2023-04-08 09:42 | ED_ITS ---
HPI - Male Genitourinary 2 General: Chief complaint: Urogenital-Male Stated complaint: swollen testicles Time Seen by Provider: 04/08/23 06:30 History of Present Illness: 72-year-old male presents emergency depa rtment with complaints of significant scrotal swelling and redness to the lower abdomen and swelling to the abdomen. He states this has been ongoing for several days and has been seen in the emergency department at another [facility] previously. He states his lower abdomen does appear tense and he is starting to have pain in his scrotum from the swelling. Review of Systems 2 General: Reports: 10 or more systems reviewed and unremarkable except in HPI and below Card: Reports: edema (lower leg swelling) Resp: Reports: non-productive cough and wheezing : Reports: scrotal swelling PFSH ED 2 PFSH: Medical History (Updated 04/08/23 @ 11:16 by Travis Jones MD) Hyperlipemia Seborrheic keratoses Cellulitis of lower extremity LBBB (left bundle branch block) Shortness of breath Edema Rash of body Close exposure to COVID-19 virus Wheezing Lower respiratory tract infection Essential hypertension Ommaya reservoir present Anxiety and depression Hypothyroid Diabetes Arthritis Brain tumor Social History Smoking and tobacco/nicotine status: former use of tobacco/nicotine Quit status (tobacco/nicotine): has quit using Year quit tobacco: 1990 Former quit date comment: Hx of 2 PPD x 20 Years Alcohol intake: never Substance/Drug Use: never Lives independently: Yes Household members: spouse Marital status: Current occupational status: retired Current occupation: Retired Do you think of yourself as: Straight/Heterosexual Current gender identity: Male Physical Exam 2 Narrative: EXAM NARRATIVE: Constitutional: the patient appears well nourished and of normal development. Vital signs as documented. No acute distress at present. Alert and oriented-to person, place, time and situation. Head, eyes, ears, nose, mouth, throat: Normocephalic, atraumatic. Pupils-equal, round, reactive to light. No scleral icterus. Normal-appearing external ears. Normal appearing nasal turbinates, no drainage. No obvious oral lesions, posterior oropharynx without erythema or exudates. Neck: Supple, trachea is midline, no lymphadenopathy, no jugular venous distension, thyromegaly, or carotid bruits. Carotid upstrokes are brisk bilaterally. Lungs: clear to auscultation to all lung rosen. Symmetrical rise and fall of chest, no obvious signs of increased work of breathing at present. Cardiac: Regular rate and rhythm, positive S1, S2. No murmurs, rubs or gallops that I can appreciate Abdomen: Distended lower abdominal edema and firmness, non-tender to palpation, normal active bowel sounds to all quadrants. No palpable masses, no organomegaly and abdominal bruits. Extremities: 2+ pulses in the upper extremities that are equal bilaterally, 2+ pulses in the lower extremities that are equal bilaterally. 2+ bilateral lower extremity brawny edema. Moves all extremities well, sensation to all extremities are noted. Skin: Warm, dry, intact. : Severe scrotal edema, Course 2 Vital Signs: Vital signs: Vital Signs Temperature 98.1 F 04/08/23 06:22 Pulse Rate 58 L 04/08/23 09:52 Respiratory Rate 16 04/08/23 09:52 Blood Pressure 161/81 04/08/23 09:52 Pulse Oximetry 93 04/08/23 09:52 Oxygen Delivery Me thod Room Air 04/08/23 09:52 MDM - Male Medical Decision Making Physical exam completed and documented, I will obtain a CBC, CMP, blood cultures, procalcitonin and lactic acid as well as provide him Ward catheter and a CT scan of his abdomen and pelvis and ultrasound of his scrotum. Differential diagnosis to include abdominal ascites, epididymitis, congestive heart failure, cellulitis, Medical Records I reviewed the patient's medical records. Lab Data I reviewed the patient's lab results. 04/08/23 07:46 04/08/23 07:46 Radiology Impressions Scrotum Ultrasound 04/08/23 06:35 IMPRESSION: Bilateral inguinal hernias. Chest X-Ray 04/08/23 06:42 IMPRESSION: No acute findings. Laboratory Results WBC 6.71 10^3/uL (3.29-11.43) 04/08/23 07:46 RBC 4.64 10^6/uL (3.85-5.65) 04/08/23 07:46 Hgb 13.20 g/dL (11.27-16.99) 04/08/23 07:46 Hct 42.0 % (37-53) 04/08/23 07:46 MCV 90.5 fl (82-101) 04/08/23 07:46 MCH 28.4 pg (27-33) 04/08/23 07:46 MCHC 31.4 g/dL (30-55) 04/08/23 07:46 RDW 15.6 % (12.1-15.1) H 04/08/23 07:46 Plt Count 246 10^3/cmm (157-399) 04/08/23 07:46 MPV 9.7 fL (7.4-10.4) 04/08/23 07:46 Neut % (Auto) 63.2 % 04/08/23 07:46 Lymph % (Auto) 13.9 % 04/08/23 07:46 [place] % (Auto) 8.9 % 04/08/23 07:46 Eos % (Auto) 12.7 % 04/08/23 07:46 Baso % (Auto) 0.9 % 04/08/23 07:46 Neut # (Auto) 4.24 10^3/uL (1.8-7.7) 04/08/23 07:46 Lymph # (Auto) 0.9 10^3/uL (0.8-4.8) 04/08/23 07:46 [place] # (Auto) 0.6 10^3/uL (0.2-0.9) 04/08/23 07:46 Eos # (Auto) 0.9 10^3/uL (0.0-0.8) H 04/08/23 07:46 Baso # (Auto) 0.1 10^3/uL (0.0-0.1) 04/08/23 07:46 Nucleated RBC % (auto) 0 % 04/08/23 07:46 Nucleated RBCs # 0.0 /100WBC 04/08/23 07:46 Sodium 138 mmol/L (136-145) 04/08/23 07:46 Potassium 4.0 mmol/L (3.5-5.1) 04/08/23 07:46 Chloride 102 mmol/L (98-107) 04/08/23 07:46 Carbon Dioxide 25 mmol/L (22-29) 04/08/23 07:46 Anion Gap 15.0 (5-19) 04/08/23 07:46 BUN 11 mg/dL (8-23) 04/08/23 07:46 Creatinine 0.7 mg/dL (0.7-1.2) 04/08/23 07:46 GFR Calculation Not Reportable 04/08/23 07:46 Glucose 156 mg/dL (65-115) H 04/08/23 07:46 Calculated Osmolality 289 mOsm/kg (285-295) 04/08/23 07:46 Lactic Acid 1.8 mmol/L (0.5-2.2) 04/08/23 10:40 Calcium 9.2 mg/dL (8.5-10.5) 04/08/23 07:46 Total Bilirubin 0.6 mg/dL (0.15-1.2) 04/08/23 07:46 AST 24 U/L (0-40) 04/08/23 07:46 ALT 25 U/L (0-41) 04/08/23 07:46 Alkaline Phosphatase 101 U/L (40-130) 04/08/23 07:46 Troponin T Baseline 36 ng/L (0-15) H 04/08/23 07:46 Troponin T 120 Minute 34.62 ng/L (0-15) H 04/08/23 09:40 Delta Troponin T -1.38 ABS# (0-10) L 04/08/23 09:40 NT-Pro-B Natriuret Pep 244 pg/mL (0-125) H 04/08/23 07:46 Total Protein 5.8 g/dL (6.6-8.7) L 04/08/23 07:46 Albumin 3.7 g/dL (3.5-5.2) 04/08/23 07:46 Globulin 2.1 g/dL (1.3-4.6) 04/08/23 07:46 Lipase 29 U/L (13-60) 04/08/23 07:46 Procalcitonin 0.04 ng/mL (0-0.5) 04/08/23 09:40 TSH 4.32 uIU/mL (0.27-4.20) H 04/08/23 07:46 Urine Color Light yellow (Yellow) 04/08/23 10:33 Urine Appearance Clear (CLEAR) 04/08/23 10:33 Urine pH 6 (5-7) 04/08/23 10:33 Ur Specific [place] 1.015 (1.005-1.030) 04/08/23 10:33 Urine Protein Neg (Negative) 04/08/23 10:33 Urine Glucose (UA) Norm (Normal) 04/08/23 10:33 Urine Ketones Negative (Negative) 04/08/23 10:33 Urine Blood Neg (Negative) 04/08/23 10:33 Urine Nitrate Negative (Negative) 04/08/23 10:33 Urine Bilirubin Neg (Negative) 04/08/23 10:33 Urine Urobilinogen Norm mg/dL (Negative) 04/08/23 10:33 Ur Leukocyte Esterase Negative (Negative) 04/08/23 10:33 All radiology interpretation(s) finalized by discharge EKG Data EKG 1: Interpretation: Twelve-lead EKG obtained at 720 reviewed at 725 demonstrates sinus bradycardia ventricular rate of 59 bpm, OR interval 204, QRS duration 143, QT 449, QTc 448 there is a first-degree AV block given reference to the OR interval. There is no ST elevation or depression at present. The computer-generated interpretation is incorrect when it states left bundle branch block on this evaluation of the EKG Discharge Plan Discharge Patient Disposition: Admitted As Inpatient Clinical Impression: Abdominal wall cellulitis, Edema of scrotum Condition: Stable Prescriptions: No Action budesonide-formoterol [Symbicort] 160-4.5 mcg/actuation HFA aerosol inhaler 2 puff inhalation BID Qty: 10.2 4RF albuterol sulfate 0.63 mg/3 mL solution for nebulization 0.63 mg INHALATION Q6H PRN (Reason: shortness of breath or wheezing) 30 Days Qty: 90 0RF lovastatin 20 mg tablet 20 mg PO DAILY 90 Days Qty: 90 0RF meloxicam 7.5 mg tablet 7.5 mg PO DAILY@0900 Qty: 90 1RF Synthroid 200 mcg tablet 200 mcg PO DAILY@0900 Qty: 90 0RF [place] 324 mg Tablet, Effervescent See Rx Instructions .ROUTE .COMPLEX Rx Instructions: USE DIRECTED furosemide [Lasix] 40 mg tablet 60 mg PO BID@0900,1700 allopurinol 100 mg tablet 100 mg PO DAILY@0900 atenolol 50 mg tablet 50 mg PO DAILY@0900 levothyroxine 50 mcg tablet 50 mcg PO DAILY metformin 1,000 mg tablet 1,000 mg PO DAILY albuterol sulfate 90 mcg/actuation HFA aerosol inhaler 2 puff INHALATION Q6H PRN (Reason: Shortness Of Breath Or Wheezing) citalopram 20 mg tablet 20 mg PO DAILY Referrals: Blaire Linn [Primary Care Provider] - Coding Level of Care Code ED Health Actuary for Juan Manuel Hardin
[2023-04-08] MEDS: FUROsemide 10 mg/mL SDV 10mL 80 MG IVP (09:48)
--- NOTE | 2023-04-08 09:57 | PC.NURSE ---
PHYSICIAN DENIED NEED FOR CATHETER. PT PLACED IN NON SLIP FOOT WEAR. CALL LIGHT IN REACH. PT INSTRUCTED TO USE CALL LIGHT. BEDSIDE COMMODE AT BEDSIDE.
[2023-04-08 10:11] LABS: Troponin 5 2HR 34.62 ng/L (0-15)
[2023-04-08 10:14] LABS: Troponin 5 2HR Delta -1.38 ABS# (0-10)
[2023-04-08 10:32] LABS: Thyroid Stimulating Hormone 4.32 uIU/mL (0.27-4.20)
[2023-04-08 10:41] LABS: Add Urine Microscopic? NO; Charge for UA Resulting for Rev
[2023-04-08 10:50] LABS: Bilirubin Urine Neg (Negative); Blood Urine Neg (Negative); Glucose Urine UA Norm (Normal); Ketones Urine Negative (Negative); Leukocyte Esterase Urine Negative (Negative); Nitrate Urine Negative (Negative); Protein Urine Neg (Negative); Specific Gravity, Urine 1.015 (1.005-1.030); Urine Appearance Clear (CLEAR); Urine Color Light yellow (Yellow); Urobilinogen Urine Norm (Negative); pH Urine 6 (5-7)
[2023-04-08] MEDS: piperacillin-tazobactam 3.375 GM in sodium chloride 0.9% (plus) 50 ML IV ×2 (10:56→18:22)
[2023-04-08 10:58] LABS: Procalcitonin 0.04 ng/mL (0-0.5)
[2023-04-08 11:08] LABS: Lactic Sepsis W/Reflex 1.8 mmol/L (0.5-2.2)
--- NOTE | 2023-04-08 11:18 | P.HP_ITS ---
Providers/Chief Complaint 2 Admitting Physician: Farhat Mojica MD, hospitalist Primary Care Provider: Blaire Linn Chief Complaint: swollen testicles History of Present Illness Mark Li is a 72 year old male presenting to the emergency department with complaints of scrotal and abdominal wall edema. He reports he noticed scrotal swelling about 5 days ago, associated with some lower extremity swelling. Reports lower extremity swelling has not been severe but scrotal swelling keeps increasing significantly. In the last several days he has noted lower abdominal tenderness, erythema, some discomfort and swelling. This is worsened significantly in the last day. He reports some chills at home but no documented fever. No nausea or vomiting. He denies ever having this condition before. He reports no drainage or skin breakdown. Review of Systems 2 General: Reports: 10 or more systems reviewed and unremarkable except in HPI and below Card: Denies: chest pain Resp: Denies: dyspnea GI: Reports: abdominal pain; Denies: hematochezia or melena Medications/Allergies Home Medications Medication Instructions Recorded Confirmed Last Taken Type albuterol sulfate 0.63 mg/3 mL 0.63 mg (3 mL) inhalation Q6H PRN 12/31/19 04/08/23 09/21/20 Rx solution for nebulization shortness of breath or wheezing 30 days #90 mL aspirin-sodium bicarbonate-citric See Rx Instructions .Route .COMPLEX 08/11/20 04/08/23 Unknown History acid 324 mg effervescent tablet allopurinol 100 mg tablet 100 mg PO DAILY@0900 09/21/20 04/08/23 09/21/20 History atenolol 50 mg tablet 50 mg PO DAILY@0900 09/21/20 04/08/23 09/21/20 History furosemide 40 mg tablet (Lasix) 60 mg PO BID@0900,1700 09/21/20 04/08/23 09/21/20 History budesonide-formoterol HFA 160 2 puff inhalation BID #10.2 grams 09/26/20 04/08/23 Unknown Rx mcg-4.5 mcg/actuation aerosol inhaler (Symbicort) lovastatin 20 mg tablet 20 mg PO DAILY 90 days #90 tabs 02/15/21 04/08/23 Unknown Rx meloxicam 7.5 mg tablet 7.5 mg PO DAILY@0900 #90 tabs 10/04/21 04/08/23 Unknown Rx levothyroxine 200 mcg tablet 200 mcg PO DAILY@0900 #90 tabs 02/26/22 04/08/23 04/08/23 Rx (Synthroid) albuterol sulfate 90 mcg/actuation 2 puff inhalation Q6H PRN 04/08/23 04/08/23 Unknown History aerosol inhaler Shortness Of Breath Or Wheezing citalopram 20 mg tablet 20 mg PO DAILY 04/08/23 04/08/23 Unknown History levothyroxine 50 mcg tablet 50 mcg PO DAILY 04/08/23 04/08/23 04/08/23 History metformin 1,000 mg tablet 1,000 mg PO DAILY 04/08/23 04/08/23 Unknown History Allergies Allergy/AdvReac Type Severity Reaction Status Date / Time No Known Allergies Allergy Verified 04/08/23 08:28 PFSH Acute 2 PFSH: Medical History (Updated 04/08/23 @ 11:27 by Farhat Mojica MD) Melanoma COPD (chronic obstructive pulmonary disease) Prostate cancer Hyperlipemia Seborrheic keratoses Cellulitis of lower extremity LBBB (left bundle branch block) Shortness of breath Edema Rash of body Close exposure to COVID-19 virus Wheezing Lower respiratory tract infection Essential hypertension Ommaya reservoir present Anxiety and depression Hypothyroid Diabetes Arthritis Brain tumor Surgical History Hx of knee surgery bilat Hx of cholecystectomy History of back surgery X5 Social History Smoking and tobacco/nicotine status: former use of tobacco/nicotine Quit status (tobacco/nicotine): has quit using Year quit tobacco: 1990 Former quit date comment: Hx of 2 PPD x 20 Years Alcohol intake: never Substance/Drug Use: never Lives independently: Yes Household members: spouse Marital status: Current occupational status: retired Current occupation: Retired Do you think of yourself as: Straight/Heterosexual Current gender identity: Male Vitals/I&O/Wt Last Vital Signs Temp 98.1 F 04/08/23 06:22 Pulse 58 L 04/08/23 09:52 Resp 16 04/08/23 09:52 BP 161/81 04/08/23 09:52 Pulse Ox 93 04/08/23 09:52 O2 Del Method Room Air 04/08/23 09:52 Weight last 48 hrs Weight 149.685 kg Physical Exam 2 Narrative: General exam is a white male, conversive and audibly wheezing. Reports some lower abdominal discomfort and scrotal swelling HEENT: Atraumatic normocephalic. Pupils equally round. Previous cataract surgery noted. [place] noted left cranium Oropharynx clear Neck is supple no lymphadenopathy or megaly Cardiovascular regular rate and rhythm, heart sounds distant. Port is noted Lungs bilateral expiratory wheezing. Diminished breath sounds bilaterally. No crackles. Abdomen is soft in the upper abdomen. This is more tense in the lower abdomen and the abdominal wall. There is some erythema and excoriations. This is most notable infraumbilical. No obvious organomegaly exam demonstrates a tremendously swollen scrotum with erythema. Some pain to palpation. Ward has been placed in the emergency department after discussion with the ER doc Extremities show no cyanosis or clubbing. There is at least 2+ edema in the lower extremities Skin see findings above Neuro no obvious focal deficits Urinary Catheter Management: Ward: Cath Placed During This Visit: yes Urinary Catheter Date of Insertion: 04/08/23 Urinary Catheter Time of Insertion: 10:41 Data 04/08/23 07:46 04/08/23 07:46 Other Labs: LFTs are normal Troponin 36 and repeat 34 BNP 244 TSH 4.32 Lipase, procalcitonin, lactic acid, calcium, albumin normal Urinalysis negative Abdomen pelvis CT demonstrates scrotal wall thickening with large bilateral hydroceles. No obstruction. Soft tissue infiltration in the abdominal wall below the level of umbilicus Chest x-ray which I reviewed no infiltrate, port noted Scrotum ultrasound demonstrates bilateral inguinal hernias, small hydroceles Blood cultures were obtained EKG demonstrates left bundle, sinus bradycardia, left axis deviation by my review A&P Assessment and plan (1) Abdominal wall cellulitis: Patient presents with edema, and erythema of his abdominal wall. This may represent cellulitis. He has some evidence of fluid overload as well but does not seem as impressive as the erythema and edema surrounding his scrotum and abdominal wall Blood cultures were obtained Vancomycin and Zosyn initially Appreciate surgery evaluating the patient as well secondary to my concern of possible scrotal and abdominal wall cellulitis and the possibility of fasciitis. This is thought unlikely considering the patient is not febrile or toxic appearing, no significant elevation in white blood cell count, no abscess seen on CT, negative procalcitonin CBC, CMP daily. Vancomycin trough is indicated. (2) Cellulitis of scrotum: See above Elevate scrotum (3) Acute diastolic CHF (congestive heart failure): Diuresis with Bumex 2 mg IV every 12 hours Close follow-up of electrolytes and magnesium Last echocardiogram was 2020, demonstrating preserved EF and grade 1 diastolic dysfunction. Will repeat echo. Secondary to lower extremity edema will check venous duplex. Fluid restriction (4) COPD exacerbation: Please note patient does not have a COPD exacerbation. He does have underlying COPD. He does chronically wheeze. Budesonide twice daily DuoNeb every 6 hours (5) Diabetes: Consistent carb diet Sliding scale insulin Qualifiers: Diabetes mellitus type: type 2 Plan Other medical problems as understood and past medical history Full code Lovenox for DVT prophylaxis Attestations 2 Medical Necessity Statement*: Will require greater than 2 midnight stay for evaluation and treatment of acute CHF exacerbation as well as abdominal wall cellulitis. Diagnoses Abdominal wall cellulitis L03.311 Cellulitis of scrotum N49.2 Acute diastolic CHF (congestive heart failure) I50.31 COPD exacerbation J44.1 Diabetes E11.9 Diabetes mellitus type: type 2 Time Spent (min) 66
[2023-04-08] MEDS: vancomycin 1,750 MG/350 ML PIGGYBACK 233.33 MG IV ×2 (11:48→23:43)
--- NOTE | 2023-04-08 12:43 | ECG_ITS ---
[facility] Test Date: 2023-04-08 Pat Name: Mark Li Department: Room: Gender: Male [employer]cher [employer]: : 1950 Requested By: Travis Jones Order Number: [id number] Gillespie MD: Ric Montana M.D. Measurements Intervals [place] Rate: 62 P: 3 [place]: 156 QRS: -37 QRSD: 150 T: 41 QT: 447 QTc: 454 Interpretive Statements SINUS RHYTHM LEFT AXIS DEVIATION [QRS AXIS < -30] INTRAVENTRICULAR CONDUCTION DELAY [130+ ms QRS DURATION] Compared to ECG 04/08/2023 07:20:39 Intraventricular conduction delay now present Sinus bradycardia no longer present Left bundle-branch block no longer present Electronically Signed On 04-08-2023 18:33:35 BENEFITS REPRESENTATIVE by Ric Montana M.D. [id number]
--- NOTE | 2023-04-08 13:44 | USCV_ITS ---
Mark Li Age: 72 Gender: M : 1950 Exam Date: 04/08/2023 14:08 Ordering Phys: Farhat Mojica MD Technologist: [place] [facility] [place]: edema,chf PROCEDURES: Bilaterally, the common femoral, superficial femoral, profunda femoral, popliteal, posterior tibial, greater saphenous veins, and the peroneal trunk were identified and interrogated in the standard fashion. These veins were found to be easily compressible with spontaneous blood flow. No evidence of insufficiency or thrombus noted. FINDINGS: Normal 2-D Doppler and augmentation and compressibility throughout the lower extremity venous structures. Additional imaging through the proximal calf veins also reveals no thrombus. Limited evaluation of the greater saphenous vein is patent with no thrombus. CONCLUSIONS No DVT bilateral lower extremities. Dr. Kita Chacko DO (Electronically Signed) Final Date: 09 April 2023 07:48 S
--- NOTE | 2023-04-08 13:44 | USCV_ITS ---
Mark Li Age: 72 Gender: M : 1950 Exam Date: 04/08/2023 14:52 Ordering Phys: Farhat Mojica MD Technologist: CT Exam Location: [facility] – [place]_ Indication: chf BP: 135 / 85 HR: 65 Rhythm: Sinus Technical Quality: Fair MEASUREMENTS (Male / Female) Normal Values 2D ECHO LV Chamber Size 5.0 cm RV Chamber Size 3.9 cm LVOT Diameter 2.4 cm LV Ejection Fraction MOD 2C 59.8 % LV Ejection Fraction 2C AL 59.7 % LA Diameter 4.9 cm LA Width 5.9 cm LA Height 5.7 cm RA Width 4.0 cm RA Height 5.8 cm Aorta at Sinotubular Diameter 2.5 cm IVC Diameter 1.6 cm M-MODE Aortic Annulus Diameter 4.0 cm LA Ao Ratio MM 1.4 MV E Point Septal Separation 1.2 cm DOPPLER AV Peak Velocity 187.0 cm/s LVOT Peak Velocity 117.0 cm/s AV Area Cont Eq vti 3.3 cm squared AV Area Cont Eq pk 2.8 cm squared MV E' Velocity 10.0 cm/s TR Peak Velocity 104.0 cm/s TR Peak Gradient 4.3 mmHg TV Peak E Velocity 73.0 cm/s Right Atrial Pressure 3.0 mmHg Pulmonary Artery Systolic Pressu 7.3 mmHg PV Peak Velocity 136.0 cm/s FINDINGS Left Ventricle Left ventricle is normal size. LV systolic function is normal with EF of 55 to 60%. No regional wall motion abnormalities are seen. Grade 1 diastolic dysfunction Right Ventricle Normal in size and function Right Atrium Normal in size Left Atrium Normal in size Mitral Valve Structurally normal. Aortic Valve Structurally normal aortic valve. No significant stenosis or regurgitation. Tricuspid Valve Mild tricuspid regurgitation. Insufficient TR jet to calculate RVSP Pulmonic Valve Not well visualized Pericardium Normal Aorta Normal in size IVC Appears to be normal CONCLUSIONS LV systolic function is normal with EF of 55-60% Grade 1 diastolic dysfunction Mild tricuspid regurgitation Compared to prior echocardiogram from 2020, no significant changes are seen. Ric Montana MD (Electronically Signed) Final Date: 08 April 2023 17:34 S
[2023-04-08 14:35] LABS: Glucose Point of Care 126 mg/dL (70-110)
[2023-04-08] MEDS: ipratropium-albuterol 3 mL Neb INHALATION ×2 (14:35→19:24)
[2023-04-08] MEDS: enoxaparin 40 mg/0.4 mL Syringe SUBCUT (15:08)
[2023-04-08 15:12] LABS: Troponin 5 6HR 37.39 ng/L (0-15); Troponin 5 6HR Delta 1.39 ng/L (0-12)
--- NOTE | 2023-04-08 15:29 | P.CONIM_ITS ---
Providers/Reason For Consult 2 Consulting Physician/Specialty*: Dr. Eyad Hassan, DO/General surgery Reason for Consult*: Scrotal erythema Attending Physician: Farhat Mojica MD Primary Care Provider: Blaire Linn History of Present Illness History of Present Illness Mark Li is a 72 year old male, with a history of congestive heart failure and diabetes, who presented to the hospital with a weeklong history of increasing scrotal edema and pain. He does report that he is having some increased difficulty breathing and that in the last couple of days his scrotum has swelled significantly and is causing him pain. He has dull constant pain in his scrotum that radiates suprapubically. Palpation makes the pain worse. Nothing seems to make the pain better. He denies any nausea or vomiting. He reports chills at home but denies any fever. Review of Systems 2 General: Reports: 10 or more systems reviewed and unremarkable except in HPI and below Medications/Allergies Home Medications Medication Instructions Recorded Confirmed Last Taken Type albuterol sulfate 0.63 mg/3 mL 0.63 mg (3 mL) inhalation Q6H PRN 12/31/19 04/08/23 09/21/20 Rx solution for nebulization shortness of breath or wheezing 30 days #90 mL aspirin-sodium bicarbonate-citric See Rx Instructions .Route .COMPLEX 08/11/20 04/08/23 Unknown History acid 324 mg effervescent tablet allopurinol 100 mg tablet 100 mg PO DAILY@0900 09/21/20 04/08/23 09/21/20 History atenolol 50 mg tablet 50 mg PO DAILY@0900 09/21/20 04/08/23 09/21/20 History furosemide 40 mg tablet (Lasix) 60 mg PO BID@0900,1700 09/21/20 04/08/23 09/21/20 History budesonide-formoterol HFA 160 2 puff inhalation BID #10.2 grams 09/26/20 04/08/23 Unknown Rx mcg-4.5 mcg/actuation aerosol inhaler (Symbicort) lovastatin 20 mg tablet 20 mg PO DAILY 90 days #90 tabs 02/15/21 04/08/23 Unknown Rx meloxicam 7.5 mg tablet 7.5 mg PO DAILY@0900 #90 tabs 10/04/21 04/08/23 Unknown Rx levothyroxine 200 mcg tablet 200 mcg PO DAILY@0900 #90 tabs 02/26/22 04/08/23 04/08/23 Rx (Synthroid) albuterol sulfate 90 mcg/actuation 2 puff inhalation Q6H PRN 04/08/23 04/08/23 Unknown History aerosol inhaler Shortness Of Breath Or Wheezing citalopram 20 mg tablet 20 mg PO DAILY 04/08/23 04/08/23 Unknown History levothyroxine 50 mcg tablet 50 mcg PO DAILY 04/08/23 04/08/23 04/08/23 History metformin 1,000 mg tablet 1,000 mg PO DAILY 04/08/23 04/08/23 Unknown History Allergies Allergy/AdvReac Type Severity Reaction Status Date / Time No Known Allergies Allergy Verified 04/08/23 08:28 Current Medications Generic Name Dose Route Start Last Admin Trade Name Freq PRN Reason Stop Dose Admin Albuterol/Ipratropium 3 ml 04/08/23 14:00 04/09/23 01:34 Ipratropium-Albuterol 3 Ml Neb INHALATION 3 ml Q6H.RESP HENRRY Administration Budesonide 0.5 mg 04/08/23 20:00 04/08/23 19:24 Budesonide 0.5 Mg/2 Ml Neb INHALATION 0.5 mg BID.RESPIRATORY HENRRY Administration Bumetanide 2 mg 04/08/23 21:00 04/08/23 20:38 Bumetanide 0.25 Mg/Ml Sdv 10 Ml IVP 2 mg Q12H HENRRY Administration Docusate Sodium 100 mg 04/08/23 18:00 04/08/23 17:51 Docusate Sodium 100 Mg Capsule PO 100 mg BID HENRRY Administration Enoxaparin Sodium 40 mg 04/08/23 13:44 04/08/23 15:08 Enoxaparin 40 Mg/0.4 Ml Syringe SUBCUT 40 mg Q24H HENRRY Administration Piperacillin Sod/Tazobactam 50 mls @ 12.5 mls/hr 04/08/23 19:00 04/09/23 02:11 Sod 3.375 gm/ Sodium Chloride IV 12.5 mls/hr Q8H HENRRY Administration Vancomycin/PEG/NADA/Lysine/Water 1,750 mg in 350 mls @ 233.333 mls/hr 04/09/23 00:00 04/09/23 01:33 Vancocin IV Infused Q12H HENRRY Infusion Insulin Human Lispro 0 unit 04/08/23 13:44 04/08/23 20:38 Insulin Lispro 100 Unit/1 Ml SUBCUT 2 unit WM&BEDTIME HENRRY Administration Protocol Oxycodone HCl 5 mg 04/08/23 13:44 04/08/23 23:51 Oxycodone 5 Mg Ir Tab/Cap PO 5 mg Q6H PRN Administration SEVERE PAIN PFSH Acute 2 PFSH: Medical History Melanoma COPD (chronic obstructive pulmonary disease) Prostate cancer Hyperlipemia Seborrheic keratoses Cellulitis of lower extremity LBBB (left bundle branch block) Shortness of breath Edema Rash of body Close exposure to COVID-19 virus Wheezing Lower respiratory tract infection Essential hypertension Ommaya reservoir present Anxiety and depression Hypothyroid Diabetes Arthritis Brain tumor Surgical History Hx of knee surgery bilat Hx of cholecystectomy History of back surgery X5 Social History Smoking and tobacco/nicotine status: former use of tobacco/nicotine Quit status (tobacco/nicotine): has quit using Year quit tobacco: 1990 Former quit date comment: Hx of 2 PPD x 20 Years Alcohol intake: never Substance/Drug Use: never Lives independently: Yes Household members: spouse Marital status: Current occupational status: retired Current occupation: Retired Do you think of yourself as: Straight/Heterosexual Current gender identity: Male Vitals/I&O/Wt Last Vital Signs Temp 98.6 F 04/09/23 05:00 Pulse 75 04/09/23 05:00 Resp 18 04/09/23 05:00 BP 140/79 04/09/23 05:00 Pulse Ox 90 04/09/23 05:00 O2 Del Method Room Air 04/09/23 01:36 04/08/23 04/08/23 04/09/23 14:59 22:59 06:59 Intake Total 50 / 50 880 / 930 350 / 1280 Output Total 1100 / 1100 2000 / 3100 Balance 50 / 50 -220 / -170 -1650 / -1820 Weight last 48 hrs Weight 332 lb Weight 336 lb 4.8 oz Weight 330 lb Physical Exam 2 Narrative: General : Patient is well developed , no acute distress, oriented x3 Head : Normal cephalic, a-traumatic. Ears : Pinnae and external canal are normal. Hearing is normal. Eyes : PERRLA, Sclera and injection are normal. No conjunctival discharge. Nose : Mucous membranes are without erythema. Throat : buccal mucosa is normal, gums are without significant recession or hypertrophy. Lungs : Equal chest rise bilaterally, no use of accessory muscles, trachea is midline. Cor : Rate and rhythm are normal. Abdomen : Soft, ND, NT to palpation however there is minimal erythema of the lower abdomen, no g/r/m : There is significant scrotal edema and erythema without induration Extremities : No edema, no cyanosis or clubbing, dorsalis pedis pulses are present bilaterally, non-tender to palpation of calves. Upper extremities are normal bilaterally. Back : non-tender to palpation, no CVA tenderness. Neuro : CN II - XII intact, Upper and lower extremities have equal and full strength Urinary Catheter Management: Ward: Cath Placed During This Visit: yes Reason for Continuing Indwelling Catheter: Required Immobilization for Trauma or Surgery or Anesthesia Urinary Catheter Date of Insertion: 04/08/23 Urinary Catheter Time of Insertion: 10:41 Data 04/09/23 04:32 04/09/23 04:32 A&P Assessment and plan (1) Acute diastolic CHF (congestive heart failure): (2) Edema of scrotum: Plan I do not have any concerns of [place]ot[place]'s gangrene, but I agree with antibiotic coverage for possible cellulitis of the scrotum and lower abdomen, although I favor this is slightly erythematous due to edema and distention. No acute surgical intervention Medical management per hospitalist Coding Level of Care Code 03322 Diagnoses Acute diastolic CHF (congestive heart failure) I50.31 Edema of scrotum N50.89
[2023-04-08] MEDS: oxyCODONE 5 mg IR Tab/Cap PO ×2 (15:46→23:51)
[2023-04-08 16:28] LABS: Glucose Point of Care 120 mg/dL (70-110)
[2023-04-08] MEDS: docusate sodium 100 mg Capsule PO (17:51)
[2023-04-08] MEDS: budesonide 0.5 mg/2 mL Neb INHALATION (19:24)
[2023-04-08 20:14] LABS: Glucose Point of Care 155 mg/dL (70-110)
[2023-04-08] MEDS: insulin lispro 100 unit/1 mL SUBCUT (20:38)
[2023-04-08] MEDS: bumetanide 0.25 mg/mL SDV 10 mL 2 MG IVP (20:38)
[2023-04-09] VITALS (13 sets, daily range): BP systolic 123–156; BP diastolic 71–79; PULSE 66–88; RESP 17–24; TEMP 36.3–37.1; O2SAT 90–94
[2023-04-09] MEDS: ipratropium-albuterol 3 mL Neb INHALATION ×3 (01:34→14:11)
[2023-04-09] MEDS: piperacillin-tazobactam 3.375 GM in sodium chloride 0.9% (plus) 50 ML IV ×3 (02:11→18:07)
[2023-04-09 05:04] LABS: Basophils # 0.1 10^3/uL (0.0-0.1); Basophils % 0.8 %; Eosinophils # 0.5 10^3/uL (0.0-0.8); Eosinophils % 6.3 %; Hematocrit 42.7 % (37-53); Lymphocytes # 0.8 10^3/uL (0.8-4.8); Lymphocytes % 9.7 %; Mean Corpuscular HGB Conc 30.7 g/dL (30-55); Mean Corpuscular Hemoglobin 28.1 pg (27-33); Mean Corpuscular Volume 91.4 fl (82-101); Mean Platelet Volume 9.9 fL (7.4-10.4); Monocytes # 0.8 10^3/uL (0.2-0.9); Monocytes % 9.5 %; Neutrophils % 73.2 %; Nucleated Red Blood Cells % 0 %; Platelet Count 224 10^3/cmm (157-399); Red Blood Count 4.67 10^6/uL (3.85-5.65); Red Cell Distribution Width 15.9 % (12.1-15.1)
[2023-04-09 05:25] LABS: Alanine Aminotransferase 25 U/L (0-41); Albumin Level 3.6 g/dL (3.5-5.2); Alkaline Phosphatase 105 U/L (40-130); Aspartate Amino Transferase 24 U/L (0-40); Blood Urea Nitrogen 12 mg/dL (8-23); Calcium 8.9 mg/dL (8.5-10.5); Carbon Dioxide 26 mmol/L (22-29); Chloride 101 mmol/L (98-107); Globulin 2.7 g/dL (1.3-4.6); Glucose 149 mg/dL (65-115); Magnesium 1.8 mg/dL (1.7-2.3); Osmolality Calculated 293 mOsm/kg (285-295); Sodium 140 mmol/L (136-145); Total Bilirubin 0.6 mg/dL (0.15-1.2); Total Protein 6.3 g/dL (6.6-8.7)
[2023-04-09 05:26] LABS: Anion Gap 16.8 (5-19); Potassium 3.8 mmol/L (3.5-5.1)
[2023-04-09 06:34] LABS: Glucose Point of Care 141 mg/dL (70-110)
--- NOTE | 2023-04-09 08:14 | P.PN_ITS ---
Documented by User: SATNAM Skinner STDNAPOLEON 04/09/23 08:34 Subjective 2 Subjective: Patient resting in bed this morning on room air. Denies chest pain and shortness of breath at this time. Plans to get up in a chair today. Medications: Reviewed: Yes Vitals/I&O/Wt Last Vital Signs Temp 98 F 04/09/23 08:07 Pulse 76 04/09/23 08:07 Resp 17 04/09/23 08:07 BP 155/78 04/09/23 08:07 Pulse Ox 94 04/09/23 08:07 O2 Del Method Room Air 04/09/23 08:07 04/08/23 04/09/23 04/09/23 22:59 06:59 14:59 Intake Total 880 / 930 350 / 1280 Output Total 1100 / 1100 2000 / 3100 Balance -220 / -170 -1650 / -1820 Weight last 48 hrs Weight 332 lb Weight 336 lb 4.8 oz Weight 330 lb Physical Exam 2 Narrative: General exam is a white male, conversive and audibly wheezing. Reports some lower abdominal discomfort and scrotal swelling HEENT: Atraumatic normocephalic. Pupils equally round. Previous cataract surgery noted. [place] noted left cranium Oropharynx clear Neck is supple no lymphadenopathy or megaly Cardiovascular regular rate and rhythm, heart sounds distant. Port is noted to right upper chest. Lungs bilateral expiratory wheezing. Diminished breath sounds bilaterally. No crackles. On room air. Abdomen is soft in the upper abdomen. This is more tense in the lower abdomen and the abdominal wall. There is some erythema and excoriations. This is most notable infraumbilical. No obvious organomegaly exam demonstrates a tremendously swollen scrotum with erythema. Some pain to palpation. Ward placed in the emergency department after discussion with the ER doc Extremities show no cyanosis or clubbing. There is at least 1+ edema in the lower extremities Skin see findings above Neuro no obvious focal deficits Urinary Catheter Management: Ward: Cath Placed During This Visit: yes Reason for Continuing Indwelling Catheter: Required Immobilization for Trauma or Surgery or Anesthesia Urinary Catheter Date of Insertion: 04/08/23 Urinary Catheter Time of Insertion: 10:41 Data 04/09/23 04:32 04/09/23 04:32 A&P Assessment and plan (1) Abdominal wall cellulitis: Patient presents with edema, and erythema of his abdominal wall. This may represent cellulitis. He has some evidence of fluid overload as well but does not seem as impressive as the erythema and edema surrounding his scrotum and abdominal wall Blood cultures pending Continue Vancomycin and Zosyn Appreciate surgery evaluating the patient as well secondary to my concern of possible scrotal and abdominal wall cellulitis and the possibility of fasciitis. This is thought unlikely considering the patient is not febrile or toxic appearing, no significant elevation in white blood cell count, no abscess seen on CT, negative procalcitonin CBC, CMP daily. Vancomycin trough as indicated. (2) Cellulitis of scrotum: See above Elevate scrotum (3) Acute diastolic CHF (congestive heart failure): Diuresis with Bumex 2 mg IV every 12 hours Close follow-up of electrolytes and magnesium Last echocardiogram was 2020, demonstrating preserved EF and grade 1 diastolic dysfunction. Echocardiogram repeated 04/08/23 demonstrated LV systolic function is normal with EF of 55-60%. Venous duplex completed 04/09/23 demonstrated No DVT bilateral lower extremities. Fluid restriction (4) COPD exacerbation: Please note patient does not have a COPD exacerbation. He does have underlying COPD. He does chronically wheeze. Budesonide twice daily DuoNeb every 6 hours (5) Diabetes: Consistent carb diet Sliding scale insulin Qualifiers: Diabetes mellitus type: type 2 Plan Other medical problems as understood and past medical history Full code Lovenox for DVT prophylaxis Coding Level of Care Code 48968 Diagnoses Abdominal wall cellulitis L03.311 Cellulitis of scrotum N49.2 Acute diastolic CHF (congestive heart failure) I50.31 COPD exacerbation J44.1 Diabetes E11.9 Diabetes mellitus type: type 2 Time Spent (min) 27 Documented by User: Farhat Mojica MD 04/09/23 10:05 Physical Exam 2 Narrative: General exam is a white male, conversive and audibly wheezing. Reports some lower abdominal discomfort and scrotal swelling. Slightly better than yesterday. -1800 cc. HEENT: Atraumatic normocephalic. Pupils equally round. Previous cataract surgery noted. [place] noted left cranium Oropharynx clear Neck is supple no lymphadenopathy or megaly Cardiovascular regular rate and rhythm, heart sounds distant. Port is noted to right upper chest. Lungs bilateral expiratory wheezing. Diminished breath sounds bilaterally. No crackles. On room air. Abdomen is soft in the upper abdomen. This is more tense in the lower abdomen and the abdominal wall. There is some erythema and excoriations. This is most notable infraumbilical. No obvious organomegaly exam demonstrates a tremendously swollen scrotum with erythema. Some pain to palpation. Ward placed in the emergency department after discussion with the ER doc Extremities show no cyanosis or clubbing. There is at least 1+ edema in the lower extremities Skin see findings above Neuro no obvious focal deficits Urinary Catheter Management: Ward: Cath Placed During This Visit: yes Data 04/09/23 04:32 04/09/23 04:32 A&P Assessment and plan (1) Abdominal wall cellulitis: Patient presents with edema, and erythema of his abdominal wall. This may represent cellulitis. He has some evidence of fluid overload as well but does not seem as impressive as the erythema and edema surrounding his scrotum and abdominal wall Blood cultures pending Continue Vancomycin and Zosyn Appreciate surgery evaluating the patient as well secondary to my concern of possible scrotal and abdominal wall cellulitis and the possibility of fasciitis. This is thought unlikely considering the patient is not febrile or toxic appearing, no significant elevation in white blood cell count, no abscess seen on CT, negative procalcitonin Overall slightly improved CBC, CMP daily. Vancomycin trough as indicated. MRSA PCR Consider de-escalation of treatment as patient improves (2) Cellulitis of scrotum: (3) Acute diastolic CHF (congestive heart failure): Diuresis with Bumex 2 mg IV every 12 hours Close follow-up of electrolytes and magnesium Last echocardiogram was 2020, demonstrating preserved EF and grade 1 diastolic dysfunction. Echocardiogram repeated 04/08/23 demonstrated LV systolic function is normal with EF of 55-60%. Venous duplex completed 04/09/23 demonstrated No DVT bilateral lower extremities. Fluid restriction Overall diuresing well. Continue diuresis. Patient slightly improved. (4) COPD exacerbation: (5) Diabetes: Qualifiers: Diabetes mellitus type: type 2 Attestations 2 Medical Necessity Statement*: Continued hospitalization for diuresis for acute congestive heart failure as well as antibiotics for probable cellulitis Diagnoses Abdominal wall cellulitis L03.311 Cellulitis of scrotum N49.2 Acute diastolic CHF (congestive heart failure) I50.31 COPD exacerbation J44.1 Diabetes E11.9 Diabetes mellitus type: type 2 Time Spent (min) 27
[2023-04-09] MEDS: insulin lispro 100 unit/1 mL SUBCUT ×2 (08:50→12:24)
[2023-04-09] MEDS: bumetanide 0.25 mg/mL SDV 10 mL 2 MG IVP ×2 (08:50→22:18)
[2023-04-09] MEDS: levothyroxine 200 mcg Tablet PO (08:51)
[2023-04-09] MEDS: atenolol 50 mg Tablet PO (08:52)
[2023-04-09] MEDS: atorvastatin 40 mg Tablet 20 MG PO (08:52)
[2023-04-09] MEDS: levothyroxine 50 mcg Tablet PO (08:52)
[2023-04-09] MEDS: docusate sodium 100 mg Capsule PO ×2 (08:52→18:04)
[2023-04-09] MEDS: citalopram 20 mg Tablet PO (08:52)
[2023-04-09] MEDS: allopurinol 100 mg Tablet PO (08:52)
[2023-04-09] MEDS: budesonide 0.5 mg/2 mL Neb INHALATION (09:21)
[2023-04-09] MEDS: oxyCODONE 5 mg IR Tab/Cap PO ×2 (11:14→18:04)
[2023-04-09 11:31] LABS: Glucose Point of Care 174 mg/dL (70-110)
[2023-04-09] MEDS: vancomycin 1,750 MG/350 ML PIGGYBACK 233.33 MG IV ×2 (13:18→23:58)
[2023-04-09] MEDS: enoxaparin 40 mg/0.4 mL Syringe SUBCUT (15:08)
[2023-04-10] VITALS (14 sets, daily range): BP systolic 124–152; BP diastolic 64–79; PULSE 60–77; RESP 17–22; TEMP 36.4–36.7; O2SAT 91–96
[2023-04-10 01:23] LABS: Glucose Point of Care 128 mg/dL (70-110)
[2023-04-10 01:24] LABS: Glucose Point of Care 125 mg/dL (70-110)
[2023-04-10] MEDS: piperacillin-tazobactam 3.375 GM in sodium chloride 0.9% (plus) 50 ML IV (02:35)
[2023-04-10 04:32] LABS: Basophils # 0.1 10^3/uL (0.0-0.1); Basophils % 0.9 %; Eosinophils # 0.6 10^3/uL (0.0-0.8); Eosinophils % 8.1 %; Hematocrit 41.1 % (37-53); Lymphocytes # 0.9 10^3/uL (0.8-4.8); Lymphocytes % 11.9 %; Mean Corpuscular HGB Conc 30.9 g/dL (30-55); Mean Corpuscular Hemoglobin 28.2 pg (27-33); Mean Corpuscular Volume 91.1 fl (82-101); Mean Platelet Volume 9.4 fL (7.4-10.4); Monocytes # 0.8 10^3/uL (0.2-0.9); Monocytes % 9.6 %; Neutrophils # 5.46 10^3/uL (1.8-7.7); Nucleated Red Blood Cells % 0 %; Platelet Count 238 10^3/cmm (157-399); Red Blood Count 4.51 10^6/uL (3.85-5.65); Red Cell Distribution Width 15.8 % (12.1-15.1); White Blood Count 7.91 10^3/uL (3.29-11.43)
[2023-04-10 04:53] LABS: Anion Gap 14.6 (5-19); Blood Urea Nitrogen 14 mg/dL (8-23); Calcium 8.7 mg/dL (8.5-10.5); Carbon Dioxide 27 mmol/L (22-29); Chloride 102 mmol/L (98-107); Glucose 158 mg/dL (65-115); Magnesium 1.8 mg/dL (1.7-2.3); Osmolality Calculated 294 mOsm/kg (285-295); Potassium 3.6 mmol/L (3.5-5.1); Sodium 140 mmol/L (136-145)
[2023-04-10 04:59] LABS: Procalcitonin 0.07 ng/mL (0-0.5)
[2023-04-10] MEDS: budesonide 0.5 mg/2 mL Neb INHALATION ×3 (06:33→19:49)
[2023-04-10] MEDS: ipratropium-albuterol 3 mL Neb INHALATION ×4 (06:33→19:49)
[2023-04-10 06:38] LABS: Glucose Point of Care 136 mg/dL (70-110)
--- NOTE | 2023-04-10 07:59 | P.PN_ITS ---
Documented by User: SATNAM Skinner STDNAPOLEON 04/10/23 08:12 Subjective 2 Subjective: Patient resting in bed on room air, still complains of slight abdominal pain. Denies nausea, vomiting, chest pain. States he feels like he is having easier time breathing. He has concerns of when scrotal swelling will come down, reporting continued discomfort when walking around. Medications: Reviewed: Yes Vitals/I&O/Wt Last Vital Signs Temp 97.8 F 04/10/23 07:39 Pulse 71 04/10/23 07:39 Resp 19 H 04/10/23 07:39 BP 151/79 04/10/23 07:39 Pulse Ox 91 04/10/23 07:39 O2 Del Method Room Air 04/10/23 07:39 04/09/23 04/10/23 04/10/23 22:59 06:59 14:59 Intake Total 546.114 / 1580.000 470 / 2050.000 50 / 50 Output Total 900 / 900 1850 / 2750 Balance -353.886 / 680.000 -1380 / -700.000 50 / 50 Weight last 48 hrs Weight 332 lb Weight 332 lb Weight 336 lb 4.8 oz Physical Exam 2 Narrative: General exam is a white male, conversive. Reports some lower abdominal discomfort and scrotal swelling. Slightly better than yesterday. HEENT: Atraumatic normocephalic. Pupils equally round. Previous cataract surgery noted. [place] noted left cranium Oropharynx clear Neck is supple, no lymphadenopathy, or megaly Cardiovascular regular rate and rhythm, heart sounds distant. Port is noted to right upper chest. Lungs bilateral expiratory wheezing. No crackles. On room air. Abdomen is soft, round in the upper abdomen. This is more tense in the lower abdomen and the abdominal wall. There is some erythema and excoriations. This is most notable infraumbilical. No obvious organomegaly exam demonstrates a tremendously swollen scrotum with erythema, swelling has come down some. Pain to palpation. Ward placed in the emergency department. Extremities show no cyanosis or clubbing. There is at least 2+ edema in the lower extremities Skin see findings above Neuro no obvious focal deficits Urinary Catheter Management: Ward: Cath Placed During This Visit: yes Reason for Continuing Indwelling Catheter: Assist healing open wound Urinary Catheter Date of Insertion: 04/08/23 Urinary Catheter Time of Insertion: 10:41 Data 04/10/23 04:22 04/10/23 04:22 A&P Assessment and plan (1) Abdominal wall cellulitis: Patient presents with edema, and erythema of his abdominal wall. This may represent cellulitis. He has some evidence of fluid overload as well but does not seem as impressive as the erythema and edema surrounding his scrotum and abdominal wall. Blood cultures pending Continue Vancomycin and Zosyn Appreciate surgery evaluating the patient as well secondary to my concern of possible scrotal and abdominal wall cellulitis and the possibility of fasciitis. This is thought unlikely considering the patient is not febrile or toxic appearing, no significant elevation in white blood cell count, no abscess seen on CT, negative procalcitonin. Overall slightly improved CBC, CMP daily. Vancomycin trough as indicated. MRSA PCR ordered. Consider de-escalation of treatment as patient improves. (2) Cellulitis of scrotum: See above Elevate scrotum (3) Acute diastolic CHF (congestive heart failure): Diuresis with Bumex 2 mg IV every 12 hours Close follow-up of electrolytes and magnesium Last echocardiogram was 2020, demonstrating preserved EF and grade 1 diastolic dysfunction. Echocardiogram repeated 04/08/23 demonstrated LV systolic function is normal with EF of 55-60%. Venous duplex completed 04/09/23 demonstrated No DVT bilateral lower extremities. Continue fluid restriction of 1200mL. Overall diuresing well. Continue diuresis. Patient slightly improved. (4) COPD exacerbation: Please note patient does not have a COPD exacerbation. He does have underlying COPD. He does chronically wheeze. Budesonide twice daily DuoNeb every 6 hours (5) Diabetes: Consistent carb diet Sliding scale insulin Qualifiers: Diabetes mellitus type: type 2 Plan Other medical problems as understood and past medical history Full code Lovenox for DVT prophylaxis Coding Level of Care Code 68285 Diagnoses Abdominal wall cellulitis L03.311 Cellulitis of scrotum N49.2 Acute diastolic CHF (congestive heart failure) I50.31 COPD exacerbation J44.1 Diabetes E11.9 Diabetes mellitus type: type 2 Time Spent (min) 25 Documented by User: Farhat Mojica MD 04/10/23 09:49 Physical Exam 2 Urinary Catheter Management: Ward: Cath Placed During This Visit: yes Data 04/10/23 04:22 04/10/23 04:22 A&P Assessment and plan (1) Abdominal wall cellulitis: Patient presents with edema, and erythema of his abdominal wall. This may represent cellulitis. He has some evidence of fluid overload as well but does not seem as impressive as the erythema and edema surrounding his scrotum and abdominal wall. Blood cultures pending Currently on vancomycin and Zosyn Appreciate surgery evaluating the patient as well secondary to my concern of possible scrotal and abdominal wall cellulitis and the possibility of fasciitis. This is thought unlikely considering the patient is not febrile or toxic appearing, no significant elevation in white blood cell count, no abscess seen on CT, negative procalcitonin. Overall slightly improved No fever, or elevated white count. Procalcitonin is normal. Discontinue Zosyn. CBC, CMP daily. Vancomycin trough as indicated. MRSA PCR ordered. (2) Cellulitis of scrotum: (3) Acute diastolic CHF (congestive heart failure): Continue diuresis with Bumex 2 mg IV every 12 hours Close follow-up of electrolytes and magnesium Last echocardiogram was 2020, demonstrating preserved EF and grade 1 diastolic dysfunction. Echocardiogram repeated 04/08/23 demonstrated LV systolic function is normal with EF of 55-60%. Venous duplex completed 04/09/23 demonstrated No DVT bilateral lower extremities. Continue fluid restriction of 1200mL. Diuresis lackluster over the last 24 hours. Dose of Zaroxolyn 5 mg p.o. today. (4) COPD exacerbation: (5) Diabetes: Qualifiers: Diabetes mellitus type: type 2 Attestations 2 Medical Necessity Statement*: He is continued Hospital stay for further diuresis secondary to his anasarca. Diagnoses Abdominal wall cellulitis L03.311 Cellulitis of scrotum N49.2 Acute diastolic CHF (congestive heart failure) I50.31 COPD exacerbation J44.1 Diabetes E11.9 Diabetes mellitus type: type 2 Time Spent (min) 25
[2023-04-10] MEDS: docusate sodium 100 mg Capsule PO ×2 (08:06→18:02)
[2023-04-10] MEDS: allopurinol 100 mg Tablet PO (08:06)
[2023-04-10] MEDS: atorvastatin 40 mg Tablet 20 MG PO (08:06)
[2023-04-10] MEDS: levothyroxine 200 mcg Tablet PO (08:06)
[2023-04-10] MEDS: levothyroxine 50 mcg Tablet PO (08:06)
[2023-04-10] MEDS: atenolol 50 mg Tablet PO (08:06)
[2023-04-10] MEDS: citalopram 20 mg Tablet PO (08:06)
[2023-04-10] MEDS: bumetanide 0.25 mg/mL SDV 10 mL 2 MG IVP ×2 (08:07→21:24)
[2023-04-10] MEDS: metOLazone 5 MG Tablet PO (09:36)
[2023-04-10] MEDS: vancomycin 1,750 MG/350 ML PIGGYBACK 233.3 MG IV (11:10)
[2023-04-10] MEDS: oxyCODONE 5 mg IR Tab/Cap PO ×2 (11:21→21:47)
--- NOTE | 2023-04-10 11:36 | PC.NURSE ---
Blood sugar was 178. This nurse told primary nurse, Lisa. The blood sugar has not docked yet while others taken after have.
[2023-04-10] MEDS: insulin lispro 100 unit/1 mL SUBCUT ×3 (11:56→21:46)
[2023-04-10 11:58] LABS: Glucose Point of Care 178 mg/dL (70-110)
[2023-04-10] MEDS: enoxaparin 40 mg/0.4 mL Syringe SUBCUT (13:12)
[2023-04-10 16:44] LABS: Glucose Point of Care 166 mg/dL (70-110)
[2023-04-10 23:20] LABS: Vancomycin Trough 21.4 ug/mL (10-15)
[2023-04-11] VITALS (10 sets, daily range): BP systolic 126–149; BP diastolic 73–83; PULSE 60–89; RESP 16–22; TEMP 36.4–37; O2SAT 90–96
[2023-04-11] MEDS: ipratropium-albuterol 3 mL Neb INHALATION ×4 (02:53→19:30)
[2023-04-11 05:15] LABS: Basophils # 0.1 10^3/uL (0.0-0.1); Basophils % 0.9 %; Eosinophils # 0.7 10^3/uL (0.0-0.8); Eosinophils % 8.7 %; Hematocrit 42.6 % (37-53); Lymphocytes # 1.1 10^3/uL (0.8-4.8); Lymphocytes % 14.4 %; Mean Corpuscular HGB Conc 30.8 g/dL (30-55); Mean Corpuscular Hemoglobin 28.1 pg (27-33); Mean Corpuscular Volume 91.2 fl (82-101); Mean Platelet Volume 10.8 fL (7.4-10.4); Monocytes # 0.8 10^3/uL (0.2-0.9); Monocytes % 10.1 %; Neutrophils # 4.97 10^3/uL (1.8-7.7); Neutrophils % 65.5 %; Nucleated Red Blood Cells % 0 %; Platelet Count 226 10^3/cmm (157-399); Red Blood Count 4.67 10^6/uL (3.85-5.65); Red Cell Distribution Width 15.7 % (12.1-15.1); White Blood Count 7.59 10^3/uL (3.29-11.43)
[2023-04-11 05:35] LABS: Anion Gap 13.9 (5-19); Blood Urea Nitrogen 16 mg/dL (8-23); Carbon Dioxide 31 mmol/L (22-29); Chloride 96 mmol/L (98-107); Glucose 148 mg/dL (65-115); Magnesium 1.8 mg/dL (1.7-2.3); Osmolality Calculated 290 mOsm/kg (285-295); Sodium 138 mmol/L (136-145)
[2023-04-11] MEDS: vancomycin 1,500 MG/300 ML PIGGYBACK 150 MG IV ×2 (05:57→17:24)
[2023-04-11] MEDS: cyclobenzaprine 10 mg Tablet 5 MG PO (05:59)
[2023-04-11 06:04] LABS: Potassium 2.9 mmol/L (3.5-5.1)
[2023-04-11 06:16] LABS: Slide Review Slide Review Perform
[2023-04-11 06:49] LABS: Glucose Point of Care 164 mg/dL (70-110)
[2023-04-11 06:49] LABS: Glucose Point of Care 155 mg/dL (70-110)
[2023-04-11] MEDS: lidocaine 1% 5 ML in potassium chloride premix 100 ML 26.25 ML IV (07:25)
[2023-04-11] MEDS: budesonide 0.5 mg/2 mL Neb INHALATION ×2 (08:10→19:30)
--- NOTE | 2023-04-11 08:48 | P.PN_ITS ---
Subjective 2 Subjective: Mark reports he is less tight, and his scrotum and abdomen. He reports his wheezing is present, but chronic. No chest discomfort. Medications: Reviewed: Yes Vitals/I&O/Wt Last Vital Signs Temp 97.8 F 04/11/23 08:00 Pulse 63 04/11/23 08:00 Resp 18 04/11/23 08:00 BP 135/73 04/11/23 08:00 Pulse Ox 91 04/11/23 08:00 O2 Del Method Room Air 04/11/23 08:00 04/10/23 04/11/23 04/11/23 22:59 06:59 14:59 Intake Total 360 / 1120 120 / 120 Output Total 620 / 3220 2700 / 5920 Balance -260 / -2100 -2700 / -4800 120 / 120 Weight last 48 hrs Weight 146.755 kg Weight 150.593 kg Physical Exam 2 Narrative: General exam no distress Neck is supple Cardiovascular regular rate and rhythm, heart sounds distant Lungs bilateral expiratory wheezes Abdomen is soft obese. Tightness is improved. Erythema improved Scrotum demonstrates less tightness. Still significantly enlarged. Extremities no cyanosis clubbing. Edema is now down significantly to trace to 1+. Urinary Catheter Management: Ward: Cath Placed During This Visit: yes Reason for Continuing Indwelling Catheter: Acute Urinary Retention or Obstruction Urinary Catheter Date of Insertion: 04/08/23 Urinary Catheter Time of Insertion: 10:41 Data 04/11/23 04:28 04/11/23 04:28 Micro: Microbiology 04/08/23 10:43 Blood Culture - Preliminary Blood 04/08/23 10:40 Blood Culture - Preliminary Blood A&P Assessment and plan (1) Abdominal wall cellulitis: Patient presents with edema, and erythema of his abdominal wall. This may represent cellulitis. He has some evidence of fluid overload as well but does not seem as impressive as the erythema and edema surrounding his scrotum and abdominal wall. Blood cultures pending Continue vancomycin. Possible discontinue tomorrow if continues to improve Appreciate surgery evaluating the patient as well secondary to my concern of possible scrotal and abdominal wall cellulitis and the possibility of fasciitis. This is thought unlikely considering the patient is not febrile or toxic appearing, no significant elevation in white blood cell count, no abscess seen on CT, negative procalcitonin. No fever, or elevated white count. Procalcitonin is normal. CBC, CMP daily. Vancomycin trough as indicated. MRSA PCR ordered and still pending (2) Cellulitis of scrotum: See above Elevate scrotum (3) Acute diastolic CHF (congestive heart failure): Continue diuresis with Bumex 2 mg IV every 12 hours Given Zaroxolyn 5 mg yesterday with significant diuresis, of 4.7 L. Will initiate 2.5 mg daily with his Bumex Renal function remains normal Close follow-up of electrolytes and magnesium Last echocardiogram was 2020, demonstrating preserved EF and grade 1 diastolic dysfunction. Echocardiogram repeated 04/08/23 demonstrated LV systolic function is normal with EF of 55-60%. Venous duplex completed 04/09/23 demonstrated No DVT bilateral lower extremities. Continue fluid restriction of 1200mL. (4) COPD exacerbation: Please note patient does not have a COPD exacerbation. He does have underlying COPD. He does chronically wheeze. Budesonide twice daily DuoNeb every 6 hours (5) Diabetes: Consistent carb diet Sliding scale insulin Qualifiers: Diabetes mellitus type: type 2 Plan Hypokalemia, supplement and recheck tomorrow. Magnesium levels normal. Other medical problems as understood and past medical history Full code Lovenox for DVT prophylaxis Attestations 2 Medical Necessity Statement*: Needs continued hospitalization for further diuresis secondary to acute congestive heart failure, diastolic Diagnoses Abdominal wall cellulitis L03.311 Cellulitis of scrotum N49.2 Acute diastolic CHF (congestive heart failure) I50.31 COPD exacerbation J44.1 Diabetes E11.9 Diabetes mellitus type: type 2 Time Spent (min) 24
[2023-04-11] MEDS: allopurinol 100 mg Tablet PO (09:30)
[2023-04-11] MEDS: levothyroxine 200 mcg Tablet PO (09:31)
[2023-04-11] MEDS: docusate sodium 100 mg Capsule PO ×2 (09:32→17:24)
[2023-04-11] MEDS: atenolol 50 mg Tablet PO (09:37)
[2023-04-11] MEDS: citalopram 20 mg Tablet PO (09:38)
[2023-04-11] MEDS: levothyroxine 50 mcg Tablet PO (09:39)
[2023-04-11] MEDS: metOLazone 5 MG Tablet 2.5 MG PO (09:41)
[2023-04-11] MEDS: atorvastatin 40 mg Tablet 20 MG PO (09:42)
[2023-04-11] MEDS: insulin lispro 100 unit/1 mL SUBCUT ×3 (09:45→22:28)
[2023-04-11] MEDS: bumetanide 0.25 mg/mL SDV 10 mL 2 MG IVP ×2 (09:54→21:22)
[2023-04-11 11:10] LABS: Glucose Point of Care 136 mg/dL (70-110)
--- NOTE | 2023-04-11 11:23 | P.PN_ITS ---
Subjective 2 Subjective: Patient seen and examined. He is still reporting some pain from scrotal swelling but denies any abdominal pain Vitals/I&O/Wt Last Vital Signs Temp 97.8 F 04/11/23 08:00 Pulse 63 04/11/23 08:00 Resp 18 04/11/23 08:00 BP 135/73 04/11/23 08:00 Pulse Ox 91 04/11/23 08:00 O2 Del Method Room Air 04/11/23 08:00 04/10/23 04/11/23 04/11/23 22:59 06:59 14:59 Intake Total 360 / 1120 420 / 420 Output Total 620 / 3220 2700 / 5920 Balance -260 / -2100 -2700 / -4800 420 / 420 Weight last 48 hrs Weight 323 lb 8.64 oz Weight 332 lb Physical Exam 2 Narrative: General: No acute distress, awake alert and oriented x 3 Abdomen: Soft, distended, nontender : Scrotal edema with erythema but no cellulitis/induration Urinary Catheter Management: Ward: Cath Placed During This Visit: yes Reason for Continuing Indwelling Catheter: Acute Urinary Retention or Obstruction Urinary Catheter Date of Insertion: 04/08/23 Urinary Catheter Time of Insertion: 10:41 Data 04/11/23 04:28 04/11/23 04:28 Micro: Microbiology 04/08/23 10:43 Blood Culture - Preliminary Blood 04/08/23 10:40 Blood Culture - Preliminary Blood A&P Assessment and plan (1) Acute diastolic CHF (congestive heart failure): (2) Edema of scrotum: Plan I do not have any concerns of Dakotah's gangrene, although I favor this is slightly erythematous due to edema and distention. No acute surgical intervention Medical management per hospitalist General surgery will sign off. Please reconsult if the need arises Attestations 2 Medical Necessity Statement*: Per primary Coding Level of Care Code 62642 Diagnoses Acute diastolic CHF (congestive heart failure) I50.31 Edema of scrotum N50.89
--- NOTE | 2023-04-11 14:01 | PC.SOCIAL ---
Pg 2 IMM Explained to pt Pg 2 IMM. No questions voiced. Provided pt a copy. Initialed, dated, & timed a copy & placed in chart.
[2023-04-11] MEDS: potassium chloride ER 20 mEq Tablet PO (14:06)
[2023-04-11] MEDS: enoxaparin 40 mg/0.4 mL Syringe SUBCUT (14:07)
[2023-04-11 14:19] LABS: Methicillin-Resist S.aureu PCR DETECTED (NOT DETECTED)
[2023-04-11 16:54] LABS: Glucose Point of Care 183 mg/dL (70-110)
[2023-04-11] MEDS: oxyCODONE 5 mg IR Tab/Cap PO (19:58)
[2023-04-11 22:28] LABS: Glucose Point of Care 172 mg/dL (70-110)
[2023-04-12] VITALS (14 sets, daily range): BP systolic 141–153; BP diastolic 72–88; PULSE 58–133; RESP 16–19; TEMP 36.3–37; O2SAT 70–93
[2023-04-12] MEDS: cyclobenzaprine 10 mg Tablet 5 MG PO ×2 (02:13→14:27)
[2023-04-12] MEDS: ipratropium-albuterol 3 mL Neb INHALATION ×4 (02:42→20:07)
[2023-04-12] MEDS: vancomycin 1,500 MG/300 ML PIGGYBACK 150 MG IV ×2 (05:14→17:40)
[2023-04-12 05:15] LABS: Basophils # 0.1 10^3/uL (0.0-0.1); Basophils % 1.1 %; Eosinophils # 0.6 10^3/uL (0.0-0.8); Eosinophils % 7.8 %; Hematocrit 44.3 % (37-53); Lymphocytes # 0.9 10^3/uL (0.8-4.8); Lymphocytes % 12.3 %; Mean Corpuscular HGB Conc 31.2 g/dL (30-55); Mean Corpuscular Hemoglobin 28.4 pg (27-33); Mean Corpuscular Volume 91.2 fl (82-101); Mean Platelet Volume 9.7 fL (7.4-10.4); Monocytes # 0.8 10^3/uL (0.2-0.9); Monocytes % 10.3 %; Neutrophils # 5.14 10^3/uL (1.8-7.7); Neutrophils % 68.1 %; Nucleated Red Blood Cells % 0 %; Platelet Count 274 10^3/cmm (157-399); Red Blood Count 4.86 10^6/uL (3.85-5.65); Red Cell Distribution Width 15.5 % (12.1-15.1); White Blood Count 7.55 10^3/uL (3.29-11.43)
[2023-04-12 05:47] LABS: Blood Urea Nitrogen 21 mg/dL (8-23); Calcium 9.1 mg/dL (8.5-10.5); Carbon Dioxide 34 mmol/L (22-29); Chloride 94 mmol/L (98-107); Glucose 179 mg/dL (65-115); Magnesium 1.8 mg/dL (1.7-2.3); Osmolality Calculated 295 mOsm/kg (285-295); Sodium 139 mmol/L (136-145)
[2023-04-12 07:13] LABS: Glucose Point of Care 154 mg/dL (70-110)
[2023-04-12] MEDS: budesonide 0.5 mg/2 mL Neb INHALATION ×2 (08:01→20:07)
[2023-04-12] MEDS: insulin lispro 100 unit/1 mL SUBCUT ×4 (08:35→20:55)
[2023-04-12] MEDS: levothyroxine 50 mcg Tablet PO (08:35)
[2023-04-12] MEDS: atorvastatin 40 mg Tablet 20 MG PO (08:35)
[2023-04-12] MEDS: atenolol 50 mg Tablet PO (08:35)
[2023-04-12] MEDS: citalopram 20 mg Tablet PO (08:36)
[2023-04-12] MEDS: docusate sodium 100 mg Capsule PO ×2 (08:36→17:40)
[2023-04-12] MEDS: metOLazone 5 MG Tablet 2.5 MG PO ×2 (08:36→17:44)
[2023-04-12] MEDS: levothyroxine 200 mcg Tablet PO (08:36)
[2023-04-12] MEDS: allopurinol 100 mg Tablet PO (08:36)
[2023-04-12] MEDS: bumetanide 0.25 mg/mL SDV 10 mL 2 MG IVP ×2 (10:06→21:02)
--- NOTE | 2023-04-12 11:05 | P.PN_ITS ---
Subjective 2 Subjective: Patient is stating that he is feeling better He is experiencing wheezing Endorse a history of COPD but does not use oxygen at home Lives alone at home Currently on room air Vitals/I&O/Wt Last Vital Signs Temp 97.4 F L 04/12/23 07:25 Pulse 67 04/12/23 08:00 Resp 16 04/12/23 08:00 BP 145/85 04/12/23 07:25 Pulse Ox 93 04/12/23 08:00 O2 Del Method Room Air 04/12/23 08:00 04/11/23 04/12/23 04/12/23 22:59 06:59 14:59 Intake Total 540 / 1545 540 / 540 Output Total 1750 / 3750 1400 / 1400 Balance -1210 / -2205 -860 / -860 Weight last 48 hrs Weight 143.018 kg Weight 146.755 kg Physical Exam 2 Narrative: Active wheezing Currently on room air Low extremity swelling improving as per the patient Scrotal edema with erythema noted No signs of worsening of erythema I do not see signs of Dakotah's gangrene or worsening of cellulitis Abdomen soft Pleasant cooperative GCS 15 Urinary Catheter Management: Ward: Cath Placed During This Visit: yes Reason for Continuing Indwelling Catheter: Acute Urinary Retention or Obstruction Urinary Catheter Date of Insertion: 04/08/23 Urinary Catheter Time of Insertion: 10:41 Data 04/12/23 04:50 04/12/23 04:50 A&P Assessment and plan (1) Acute diastolic CHF (congestive heart failure): (2) Exertional dyspnea: (3) Diabetes: Qualifiers: Diabetes mellitus type: type 2 (4) Edema of scrotum: (5) Brain tumor: (6) Cellulitis of lower extremity: (7) COPD exacerbation: (8) Shortness of breath: (9) Wheezing: Plan Acute diastolic CHF exacerbation Potassium to be replenished Continue diuresis Scrotal edema No active worsening as per the patient He does have erythema I do not see any signs of Dakotah's gangrene Lower extremity cellulitis seems to be related to venous dermatitis which is improving I will keep patient on vancomycin for now Continue Bumex current regimen change metolazone to twice a day regimen Acute COPD exacerbation with wheezing Currently on room air It could be related to cardiac wheeze I will give him steroids p.o. discontinue budesonide patient did not respond to inhaled steroids very well Continue sliding scale with levothyroxine Likely discharge on Friday Patient also wants PCP set up DVT prophylaxis covered with Lovenox Attestations 2 Medical Necessity Statement*: Discharge likely Friday Diagnoses Acute diastolic CHF (congestive heart failure) I50.31 Exertional dyspnea R06.00 Diabetes E11.9 Diabetes mellitus type: type 2 Edema of scrotum N50.89 Brain tumor D49.6 Cellulitis of lower extremity L03.119 COPD exacerbation J44.1 Shortness of breath R06.02 Wheezing R06.2
[2023-04-12 11:20] LABS: Glucose Point of Care 182 mg/dL (70-110)
[2023-04-12] MEDS: magnesium oxide 400 mg tablet PO ×2 (11:47→17:39)
[2023-04-12] MEDS: predniSONE 20 mg Tablet 40 MG PO (11:47)
[2023-04-12] MEDS: potassium chloride ER 20 mEq Tablet 40 MEQ PO ×2 (11:47→17:40)
[2023-04-12] MEDS: enoxaparin 40 mg/0.4 mL Syringe SUBCUT (14:20)
[2023-04-12 17:20] LABS: Glucose Point of Care 197 mg/dL (70-110)
[2023-04-12 19:16] LABS: Vancomycin Trough 30.3 ug/mL (10-15)
--- NOTE | 2023-04-12 19:32 | PC.NURSE ---
vanc trough 30.3, vanc started infusion at 1740 and trough is drawn at 1830 while vanc is not yet completely administered, Dr. Magdaleno notified, agreed to stop vanc now, redraw trough at 0500 before next dose is due
[2023-04-12] MEDS: calcium carbonate 500 mg Chew Tablet 1000 MG PO (20:56)
[2023-04-12] MEDS: oxyCODONE 5 mg IR Tab/Cap PO (20:56)
[2023-04-12 21:17] LABS: Glucose Point of Care 191 mg/dL (70-110)
[2023-04-12 22:08] LABS: Glucose Point of Care 181 mg/dL (70-110)
[2023-04-13] VITALS (10 sets, daily range): BP systolic 137–149; BP diastolic 73–83; PULSE 55–63; RESP 16–22; TEMP 36.2–36.6; O2SAT 92–96
[2023-04-13 06:05] LABS: Basophils # 0.1 10^3/uL (0.0-0.1); Basophils % 0.7 %; Eosinophils # 0.1 10^3/uL (0.0-0.8); Eosinophils % 0.7 %; Hematocrit 44.7 % (37-53); Lymphocytes # 1.3 10^3/uL (0.8-4.8); Lymphocytes % 13.2 %; Mean Corpuscular HGB Conc 31.1 g/dL (30-55); Mean Corpuscular Volume 89.9 fl (82-101); Monocytes % 10.1 %; Neutrophils # 7.23 10^3/uL (1.8-7.7); Neutrophils % 74.8 %; Nucleated Red Blood Cells % 0 %; Platelet Count 311 10^3/cmm (157-399); Red Blood Count 4.97 10^6/uL (3.85-5.65); Red Cell Distribution Width 15.4 % (12.1-15.1); White Blood Count 9.68 10^3/uL (3.29-11.43)
[2023-04-13 06:20] LABS: Vancomycin Trough 21.2 ug/mL (10-15)
[2023-04-13 06:32] LABS: Anion Gap 16.6 (5-19); Blood Urea Nitrogen 33 mg/dL (8-23); Calcium 9.5 mg/dL (8.5-10.5); Carbon Dioxide 33 mmol/L (22-29); Chloride 94 mmol/L (98-107); Glucose 156 mg/dL (65-115); Osmolality Calculated 300 mOsm/kg (285-295); Potassium 3.6 mmol/L (3.5-5.1); Sodium 140 mmol/L (136-145)
[2023-04-13 06:44] LABS: Glucose Point of Care 144 mg/dL (70-110)
[2023-04-13] MEDS: budesonide 0.5 mg/2 mL Neb INHALATION ×2 (08:13→21:13)
[2023-04-13] MEDS: ipratropium-albuterol 3 mL Neb INHALATION ×3 (08:13→21:13)
[2023-04-13] MEDS: levothyroxine 50 mcg Tablet PO (08:50)
[2023-04-13] MEDS: atorvastatin 40 mg Tablet 20 MG PO (08:50)
[2023-04-13] MEDS: magnesium oxide 400 mg tablet PO ×2 (08:50→17:51)
[2023-04-13] MEDS: levothyroxine 200 mcg Tablet PO (08:50)
[2023-04-13] MEDS: citalopram 20 mg Tablet PO (08:51)
[2023-04-13] MEDS: potassium chloride ER 20 mEq Tablet 40 MEQ PO ×2 (08:51→17:51)
[2023-04-13] MEDS: allopurinol 100 mg Tablet PO (08:51)
[2023-04-13] MEDS: insulin lispro 100 unit/1 mL SUBCUT ×4 (08:51→22:24)
[2023-04-13] MEDS: predniSONE 20 mg Tablet 40 MG PO (08:51)
[2023-04-13] MEDS: metOLazone 5 MG Tablet 2.5 MG PO ×2 (08:51→18:02)
[2023-04-13] MEDS: atenolol 50 mg Tablet PO (08:51)
[2023-04-13] MEDS: docusate sodium 100 mg Capsule PO ×2 (08:51→17:51)
[2023-04-13] MEDS: bumetanide 0.25 mg/mL SDV 10 mL 2 MG IVP ×2 (09:11→20:43)
[2023-04-13] MEDS: vancomycin 1,500 MG/300 ML PIGGYBACK 150 MG IV (11:35)
[2023-04-13 11:39] LABS: Glucose Point of Care 190 mg/dL (70-110)
--- NOTE | 2023-04-13 12:13 | XRR_ITS ---
PROCEDURE INFORMATION: Exam: XR Chest Exam date and time: 04/13/2023 4:08 PM Age: 72 years old Clinical indication: Prior surgery; Surgery date: 6+ months; Surgery type: RT port placement; Patient HX: Wheezing; Cough; HX prostate/brain CA TECHNIQUE: Imaging protocol: Radiologic exam of the chest. Views: 1 view. COMPARISON: CR XR chest 1V portable [id number] 04/08/2023 7:35 AM FINDINGS: Lungs: Lungs are clear bilaterally. Pleural spaces: No pleural effusion. No pneumothorax. Heart/Mediastinum: Stable mild enlargement of the cardiac silhouette. Mediastinal contours are unremarkable. Vasculature: Stable vascular calcifications in the aorta. Bones/joints: Unremarkable for age. XR/XR chest 1V portable [id number] IMPRESSION: 1. No acute cardiopulmonary process. 2. Incidental/nonacute findings are listed in the report.
--- NOTE | 2023-04-13 12:13 | PM.PN ---
Subjective Subjective: Will repeat x-ray patient is still experiencing wheezing however not requiring oxygen Scrotal swelling noted significant improvement however patient is stating that he is able to walk to the bathroom, I have encouraged him to walk in the hallway Will request PT as well He is agreeable to group home placement if needed however states that he can handle himself at home Vitals/I&O/Wt Last Vital Signs Temp 97.5 F L 04/13/23 11:42 Pulse 61 04/13/23 11:42 Resp 20 H 04/13/23 11:42 BP 138/78 04/13/23 11:42 Pulse Ox 96 04/13/23 11:42 O2 Del Method Room Air 04/13/23 11:42 04/12/23 04/13/23 04/13/23 22:59 06:59 14:59 Intake Total 320 / 980 240 / 240 Output Total 1000 / 2900 2100 / 5000 Balance -680 / -1920 -2100 / -4020 240 / 240 Weight last 48 hrs Weight 140.245 kg Weight 142.23 kg Weight 143.018 kg Physical Exam Narrative: Scrotal swelling no significant movement since yesterday Erythema seems to be slightly better Lower extremity edema improving GCS 15 Currently on room air Cardiac wheezing Awake and alert Pleasant cooperative S1, S2 Urinary Catheter Management: Ward: Cath Placed During This Visit: yes Reason for Continuing Indwelling Catheter: Acute Urinary Retention or Obstruction Urinary Catheter Date of Insertion: 04/08/23 Urinary Catheter Time of Insertion: 10:41 Data 04/13/23 05:24 04/13/23 05:24 A&P Assessment and plan (1) Essential hypertension: (2) Acute diastolic CHF (congestive heart failure): (3) Exertional dyspnea: (4) Diabetes: Qualifiers: Diabetes mellitus type: type 2 (5) Hypothyroid: Qualifiers: Hypothyroidism type: acquired Qualified Code(s): E03.9 - Hypothyroidism, unspecified (6) Brain tumor: (7) Edema of scrotum: (8) Cellulitis of scrotum: (9) Abdominal wall cellulitis: (10) Cellulitis of lower extremity: (11) Wheezing: (12) COPD exacerbation: Plan Significant swelling of scrotal area Erythema improving Anasarca improving Currently patient is on Bumex I have changed metolazone dose to twice a day as well Potassium also changed to twice a day Will request physical therapy Aggressive diuresis with signs of contraction alkalosis -13 L, bicarb 33 Full code No fever, no leukocytosis I will change antibiotics to doxycycline and Augmentin Disposition: Likely home with home health in next 24 hours Attestations Medical Necessity Statement*: Possible discharge tomorrow we will request physical therapy Diagnoses Essential hypertension I10 Acute diastolic CHF (congestive heart failure) I50.31 Exertional dyspnea R06.00 Diabetes E11.9 Diabetes mellitus type: type 2 Acquired hypothyroidism E03.9 Hypothyroidism type: acquired Brain tumor D49.6 Edema of scrotum N50.89 Cellulitis of scrotum N49.2 Abdominal wall cellulitis L03.311 Cellulitis of lower extremity L03.119 Wheezing R06.2 COPD exacerbation J44.1
[2023-04-13] MEDS: enoxaparin 40 mg/0.4 mL Syringe SUBCUT (14:28)
[2023-04-13] MEDS: oxyCODONE 5 mg IR Tab/Cap PO (16:38)
[2023-04-13 16:43] LABS: Glucose Point of Care 228 mg/dL (70-110)
[2023-04-13] MEDS: amoxicillin-clav 875-125 mg Tablet 1 TAB PO (17:51)
[2023-04-13] MEDS: doxycycline 100 mg Tablet PO (17:51)
[2023-04-14] VITALS (15 sets, daily range): BP systolic 127–163; BP diastolic 78–83; PULSE 53–66; RESP 16–22; TEMP 36.3–36.8; O2SAT 88–98
[2023-04-14] MEDS: oxyCODONE 5 mg IR Tab/Cap PO ×2 (01:10→15:48)
[2023-04-14 05:14] LABS: Glucose Point of Care 213 mg/dL (70-110)
[2023-04-14 05:49] LABS: Basophils # 0.1 10^3/uL (0.0-0.1); Basophils % 0.6 %; Eosinophils # 0.1 10^3/uL (0.0-0.8); Eosinophils % 0.8 %; Hematocrit 45.9 % (37-53); Lymphocytes # 1.4 10^3/uL (0.8-4.8); Lymphocytes % 12.7 %; Mean Corpuscular HGB Conc 31.6 g/dL (30-55); Mean Corpuscular Hemoglobin 28.4 pg (27-33); Mean Corpuscular Volume 89.8 fl (82-101); Mean Platelet Volume 9.7 fL (7.4-10.4); Monocytes # 1.2 10^3/uL (0.2-0.9); Monocytes % 10.6 %; Neutrophils % 74.8 %; Nucleated Red Blood Cells % 0 %; Platelet Count 321 10^3/cmm (157-399); Red Blood Count 5.11 10^6/uL (3.85-5.65); Red Cell Distribution Width 15.4 % (12.1-15.1); White Blood Count 10.83 10^3/uL (3.29-11.43)
[2023-04-14 06:14] LABS: Anion Gap 16.3 (5-19); Blood Urea Nitrogen 46 mg/dL (8-23); Calcium 9.8 mg/dL (8.5-10.5); Carbon Dioxide 34 mmol/L (22-29); Chloride 91 mmol/L (98-107); Glucose 159 mg/dL (65-115); Osmolality Calculated 301 mOsm/kg (285-295); Potassium 3.3 mmol/L (3.5-5.1); Sodium 138 mmol/L (136-145)
[2023-04-14 06:48] LABS: Glucose Point of Care 145 mg/dL (70-110)
[2023-04-14] MEDS: budesonide 0.5 mg/2 mL Neb INHALATION ×2 (07:44→19:41)
[2023-04-14] MEDS: ipratropium-albuterol 3 mL Neb INHALATION ×3 (07:44→19:41)
[2023-04-14] MEDS: insulin lispro 100 unit/1 mL SUBCUT ×4 (09:55→22:27)
[2023-04-14] MEDS: levothyroxine 200 mcg Tablet PO (09:56)
[2023-04-14] MEDS: magnesium oxide 400 mg tablet PO ×2 (09:56→17:35)
[2023-04-14] MEDS: citalopram 20 mg Tablet PO (09:56)
[2023-04-14] MEDS: atorvastatin 40 mg Tablet 20 MG PO (09:56)
[2023-04-14] MEDS: atenolol 50 mg Tablet PO (09:56)
[2023-04-14] MEDS: metOLazone 5 MG Tablet 2.5 MG PO (09:56)
[2023-04-14] MEDS: amoxicillin-clav 875-125 mg Tablet 1 TAB PO ×2 (09:56→17:35)
[2023-04-14] MEDS: levothyroxine 50 mcg Tablet PO (09:56)
[2023-04-14] MEDS: potassium chloride ER 20 mEq Tablet 40 MEQ PO ×2 (09:57→18:35)
[2023-04-14] MEDS: predniSONE 20 mg Tablet 40 MG PO (09:57)
[2023-04-14] MEDS: bumetanide 0.25 mg/mL SDV 10 mL 2 MG IVP (09:57)
[2023-04-14] MEDS: allopurinol 100 mg Tablet PO (09:57)
[2023-04-14] MEDS: docusate sodium 100 mg Capsule PO ×2 (09:57→17:35)
[2023-04-14] MEDS: doxycycline 100 mg Tablet PO ×2 (09:57→17:35)
--- NOTE | 2023-04-14 10:17 | P.DS_ITS ---
Discharge Providers Date of Admission: 04/08/23 12:44 Date of Discharge: April 14, 2023 Attending Provider at Admission: Farhat Mojica MD Attending Provider at Discharge: Christin Gonzalez MD Primary Care Provider: Blaire Linn Diagnoses at Discharge Discharge Diagnosis (1) Essential hypertension: Status: Acute (2) Acute diastolic CHF (congestive heart failure): Status: Acute (3) Exertional dyspnea: Status: Acute (4) Diabetes: Status: Acute Qualifiers: Diabetes mellitus type: type 2 (5) Hypothyroid: Status: Acute Qualifiers: Hypothyroidism type: acquired Qualified Code(s): E03.9 - Hypo thyroidism, unspecified (6) Brain tumor: Status: Acute (7) Edema of scrotum: Status: Acute (8) Cellulitis of scrotum: Status: Acute (9) Abdominal wall cellulitis: Status: Acute (10) Cellulitis of lower extremity: Status: Acute (11) Wheezing: Status: Acute (12) COPD exacerbation: Status: Acute Reason for Visit Reason for Visit: swollen testicles Hospital Course Hospital Course 72-year-old male who was admitted for management evaluation of congestive heart failure exacerbation, he was diagnosed with preserved ejection fraction cardiomyopathy, we did diagnose him with sleep apnea, I had a detailed discussion with the patient regarding sleep study and use of CPAP patient is stating that he is not going to use anything for his sleep apnea including CPAP agreeable to use oxygen cannula, will do home oxygen evaluation before discharge, please note initially on admission there was concern related to worsening of cellulitis including Dakotah's gangrene he was put on broad- spectrum antibiotics, his swelling of scrotum improved with diuresis, cellulitis improved there was no signs or symptoms related to Dakotah's gangrene, patient is able to walk 85 feet, at rest does not need oxygen, carries history of COPD, he experienced cardiac wheezing as well which improved with diuresis and use of steroids remained afebrile no leukocytosis, he does have YANI related to overdiuresis with contraction alkalosis, I will give him follow-up with Dr. Vergara PCP and BMP prescription. Blood cultures remain negative. No signs of DVT or PE, scrotum ultrasound unremarkable, he does have bilateral reducible nguinal hernia no signs of incarceration or strangulation. Physical Exam Narrative: Reducible bilateral inguinal hernia No signs of strangulation or incarceration Erythema and swelling of scrotum has improved Cellulitis of lower extremity improved Currently on room air Anasarca improving S1, S2 Urinary Catheter Management: Ward: Cath Placed During This Visit: yes Reason for Continuing Indwelling Catheter: Other Urinary Catheter Date of Insertion: 04/08/23 Urinary Catheter Time of Insertion: 10:41 Discharge Data Studies Completed and Pending Completed Studies During Hospitalization Category Date Time Status CT abdomen pelvis w con* [id number] Stat Cat Scan 04/08/23 06:35 Completed XR chest 1V portable [id number] Routine Exams 04/13/23 12:13 Completed XR chest 1V portable [id number] Stat Exams 04/08/23 06:42 Completed CV echo complete* [id number] Routine Ultrasound 04/08/23 13:44 [place] [id number] Routine Ultrasound 04/08/23 13:44 Completed US scrotum [id number] Stat Ultrasound 04/08/23 06:35 Completed Pending at discharge Category Date Time Status Blood Cultures ([facility]) Routine Lab 04/08/23 10:40 Results Blood Cultures ([facility]) Routine Lab 04/08/23 10:43 Results Radiology Impressions Scrotum Ultrasound 04/08/23 06:35 IMPRESSION: Bilateral inguinal hernias. Chest X-Ray 04/13/23 12:13 IMPRESSION: 1. No acute cardiopulmonary process. 2. Incidental/nonacute findings are listed in the report. Laboratory Results WBC 10.83 10^3/uL (3.29-11.43) 04/14/23 05:36 RBC 5.11 10^6/uL (3.85-5.65) 04/14/23 05:36 Hgb 14.50 g/dL (11.27-16.99) 04/14/23 05:36 Hct 45.9 % (37-53) 04/14/23 05:36 MCV 89.8 fl (82-101) 04/14/23 05:36 MCH 28.4 pg (27-33) 04/14/23 05:36 MCHC 31.6 g/dL (30-55) 04/14/23 05:36 RDW 15.4 % (12.1-15.1) H 04/14/23 05:36 Plt Count 321 10^3/cmm (157-399) 04/14/23 05:36 MPV 9.7 fL (7.4-10.4) 04/14/23 05:36 Neut % (Auto) 74.8 % 04/14/23 05:36 Lymph % (Auto) 12.7 % 04/14/23 05:36 [place] % (Auto) 10.6 % 04/14/23 05:36 Eos % (Auto) 0.8 % 04/14/23 05:36 Baso % (Auto) 0.6 % 04/14/23 05:36 Neut # (Auto) 8.10 10^3/uL (1.8-7.7) H 04/14/23 05:36 Lymph # (Auto) 1.4 10^3/uL (0.8-4.8) 04/14/23 05:36 [place] # (Auto) 1.2 10^3/uL (0.2-0.9) H 04/14/23 05:36 Eos # (Auto) 0.1 10^3/uL (0.0-0.8) 04/14/23 05:36 Baso # (Auto) 0.1 10^3/uL (0.0-0.1) 04/14/23 05:36 Nucleated RBC % (auto) 0 % 04/14/23 05:36 Nucleated RBCs # 0.0 /100WBC 04/14/23 05:36 Sodium 138 mmol/L (136-145) 04/14/23 05:36 Potassium 3.3 mmol/L (3.5-5.1) L 04/14/23 05:36 Chloride 91 mmol/L (98-107) L 04/14/23 05:36 Carbon Dioxide 34 mmol/L (22-29) H 04/14/23 05:36 Anion Gap 16.3 (5-19) 04/14/23 05:36 BUN 46 mg/dL (8-23) H 04/14/23 05:36 Creatinine 1.5 mg/dL (0.7-1.2) H 04/14/23 05:36 GFR Calculation Not Reportable 04/14/23 05:36 Glucose 159 mg/dL (65-115) H 04/14/23 05:36 POC Glucose 145 mg/dL (70-110) H 04/14/23 06:45 Calculated Osmolality 301 mOsm/kg (285-295) H 04/14/23 05:36 Lactic Acid 1.8 mmol/L (0.5-2.2) 04/08/23 10:40 Calcium 9.8 mg/dL (8.5-10.5) 04/14/23 05:36 Magnesium 1.8 mg/dL (1.7-2.3) 04/12/23 04:50 Total Bilirubin 0.6 mg/dL (0.15-1.2) 04/09/23 04:32 AST 24 U/L (0-40) 04/09/23 04:32 ALT 25 U/L (0-41) 04/09/23 04:32 Alkaline Phosphatase 105 U/L (40-130) 04/09/23 04:32 Troponin T Baseline 36 ng/L (0-15) H 04/08/23 07:46 Troponin T 120 Minute 34.62 ng/L (0-15) H 04/08/23 09:40 Delta Troponin T -1.38 ABS# (0-10) L 04/08/23 09:40 Troponin T Hi Sens 6Hr 37.39 ng/L (0-15) H 04/08/23 14:20 Troponin T Hi Sens 6Hr Delta 1.39 ng/L (0-12) 04/08/23 14:20 NT-Pro-B Natriuret Pep 244 pg/mL (0-125) H 04/08/23 07:46 Total Protein 6.3 g/dL (6.6-8.7) L 04/09/23 04:32 Albumin 3.6 g/dL (3.5-5.2) 04/09/23 04:32 Globulin 2.7 g/dL (1.3-4.6) 04/09/23 04:32 Lipase 29 U/L (13-60) 04/08/23 07:46 Procalcitonin 0.07 ng/mL (0-0.5) 04/10/23 04:22 TSH 4.32 uIU/mL (0.27-4.20) H 04/08/23 07:46 Urine Color Light yellow (Yellow) 04/08/23 10:33 Urine Appearance Clear (CLEAR) 04/08/23 10:33 Urine pH 6 (5-7) 04/08/23 10:33 Ur Specific [place] 1.015 (1.005-1.030) 04/08/23 10:33 Urine Protein Neg (Negative) 04/08/23 10:33 Urine Glucose (UA) Norm (Normal) 04/08/23 10:33 Urine Ketones Negative (Negative) 04/08/23 10:33 Urine Blood Neg (Negative) 04/08/23 10:33 Urine Nitrate Negative (Negative) 04/08/23 10:33 Urine Bilirubin Neg (Negative) 04/08/23 10:33 Urine Urobilinogen Norm mg/dL (Negative) 04/08/23 10:33 Ur Leukocyte Esterase Negative (Negative) 04/08/23 10:33 Vancomycin Trough 21.2 ug/mL (10-15) H 04/13/23 05:24 MRSA (PCR) Detected (NOT DETECTED) A 04/10/23 13:19 Vitals Last Vital Signs Temp 97.5 F L 04/14/23 08:01 Pulse 54 L 04/14/23 08:01 Resp 18 04/14/23 08:01 BP 145/78 04/14/23 08:01 Pulse Ox 88 L 04/14/23 10:10 O2 Del Method Room Air 04/14/23 08:01 O2 Flow Rate 2 04/14/23 10:10 Discharge Plan Discharge Patient Disposition: Home Condition: Stable Prescriptions: Continued budesonide-formoterol [Symbicort] 160-4.5 mcg/actuation HFA aerosol inhaler 2 puff inhalation BID Qty: 10.2 4RF albuterol sulfate 0.63 mg/3 mL solution for nebulization 0.63 mg INHALATION Q6H PRN (Reason: shortness of breath or wheezing) 30 Days Qty: 90 0RF lovastatin 20 mg tablet 20 mg PO DAILY 90 Days Qty: 90 0RF Synthroid 200 mcg tablet 200 mcg PO DAILY@0900 Qty: 90 0RF allopurinol 100 mg tablet 100 mg PO DAILY@0900 levothyroxine 50 mcg tablet 50 mcg PO DAILY albuterol sulfate 90 mcg/actuation HFA aerosol inhaler 2 puff INHALATION Q6H PRN (Reason: Shortness Of Breath Or Wheezing) citalopram 20 mg tablet 20 mg PO DAILY Discontinued meloxicam 7.5 mg tablet 7.5 mg PO DAILY@0900 Qty: 90 1RF [place] 324 mg Tablet, Effervescent See Rx Instructions .ROUTE .COMPLEX Rx Instructions: USE DIRECTED furosemide [Lasix] 40 mg tablet 60 mg PO BID@0900,1700 atenolol 50 mg tablet 50 mg PO DAILY@0900 metformin 1,000 mg tablet 1,000 mg PO DAILY Discharge Orders: Discharge Order (Routine); Ordered 04/14/23 Ordered By: Christin Gonzalez Referrals: Blaire Linn [Primary Care Provider] - Suman Ritter MD [Physician] - 2 weeks Patient Instructions: Opioid Safety Coding Level of Care Code Acute Code for Chg Fwd Diagnoses Essential hypertension I10 Acute diastolic CHF (congestive heart failure) I50.31 Exertional dyspnea R06.00 Diabetes E11.9 Diabetes mellitus type: type 2 Acquired hypothyroidism E03.9 Hypothyroidism type: acquired Brain tumor D49.6 Edema of scrotum N50.89 Cellulitis of scrotum N49.2 Abdominal wall cellulitis L03.311 Cellulitis of lower extremity L03.119 Wheezing R06.2 COPD exacerbation J44.1
--- NOTE | 2023-04-14 10:26 | P.PN_ITS ---
Subjective 2 Subjective: His D-dimer has been hide Not requiring oxygen has not been tachycardic Wheezing has not improved significantly Creatinine 1.5 today There was plan to discharge him today but because of worsening of creatinine and active wheezing I will hold off on discharge 1 more day Vitals/I&O/Wt Last Vital Signs Temp 97.5 F L 04/14/23 08:01 Pulse 54 L 04/14/23 08:01 Resp 18 04/14/23 08:01 BP 145/78 04/14/23 08:01 Pulse Ox 88 L 04/14/23 10:10 O2 Del Method Room Air 04/14/23 08:01 O2 Flow Rate 2 04/14/23 10:10 04/13/23 04/14/23 04/14/23 22:59 06:59 14:59 Intake Total 120 / 900 Output Total 3800 / 3800 550 / 4350 Balance -3680 / -2900 -550 / -3450 Weight last 48 hrs Weight 139.933 kg Weight 140.245 kg Weight 142.23 kg Physical Exam 2 Narrative: Signs of anasarca improving Active wheezing Currently on room air No tachycardia No active chest pain Pleasant and cooperative GCS 15 Nonfocal neuroexam Urinary Catheter Management: Ward: Cath Placed During This Visit: yes Reason for Continuing Indwelling Catheter: Other Urinary Catheter Date of Insertion: 04/08/23 Urinary Catheter Time of Insertion: 10:41 Data 04/14/23 05:36 04/14/23 05:36 A&P Assessment and plan (1) Anxiety and depression: (2) Essential hypertension: (3) Acute diastolic CHF (congestive heart failure): (4) Exertional dyspnea: (5) Diabetes: Qualifiers: Diabetes mellitus type: type 2 (6) Hypothyroid: Qualifiers: Hypothyroidism type: acquired Qualified Code(s): E03.9 - Hypothyroidism, unspecified (7) Brain tumor: (8) Abdominal wall cellulitis: (9) Wheezing: (10) COPD exacerbation: (11) Hydrocele, bilateral: (12) YANI (acute kidney injury): Plan There was plan to discharge him today however secondary to worsening of creatinine and active wheezing I will hold off on discharge, would like to get CTA chest rule out PE however he has not required oxygen or remained tachycardic Currently he is on Augmentin and doxycycline Cellulitis of lower extremities improving No signs of Dakotah's gangrene Contraction alkalosis Discontinue metolazone COPD exacerbation with active wheeze Cardiac wheezing in my opinion Afebrile Patient will need outpatient sleep study which he is declining at this point Full code Will arrange PCP for him as well No signs of DVT Bilateral hydrocele no sign of strangulation or incarceration Attestations 2 Medical Necessity Statement*: Possible discharge tomorrow Diagnoses Anxiety and depression F41.9; F32.9 Essential hypertension I10 Acute diastolic CHF (congestive heart failure) I50.31 Exertional dyspnea R06.00 Diabetes E11.9 Diabetes mellitus type: type 2 Acquired hypothyroidism E03.9 Hypothyroidism type: acquired Brain tumor D49.6 Abdominal wall cellulitis L03.311 Wheezing R06.2 COPD exacerbation J44.1 Hydrocele, bilateral N43.3 YANI (acute kidney injury) N17.9
[2023-04-14 11:42] LABS: Glucose Point of Care 236 mg/dL (70-110)
[2023-04-14] MEDS: magnesium sulfate premix 1 GM/100 ML PIGGYBACK IV (11:58)
[2023-04-14] MEDS: acetaZOLAMIDE 250 mg Tablet PO (11:58)
--- NOTE | 2023-04-14 13:07 | PC.SOCIAL ---
IMM Update pg 2 of IMM updated and reviewed w/ patient. Copy provided and copy dated, initialed and placed in chart.
[2023-04-14] MEDS: enoxaparin 40 mg/0.4 mL Syringe SUBCUT (13:41)
[2023-04-14 16:38] LABS: Glucose Point of Care 196 mg/dL (70-110)
[2023-04-14 20:52] LABS: Glucose Point of Care 224 mg/dL (70-110)
[2023-04-15] VITALS (16 sets, daily range): BP systolic 118–145; BP diastolic 70–87; PULSE 52–94; RESP 16–20; TEMP 36.4–36.8; O2SAT 90–95; BMI 45.9
[2023-04-15] MEDS: ipratropium-albuterol 3 mL Neb INHALATION ×4 (03:25→20:47)
[2023-04-15 05:53] LABS: Anion Gap 15.5 (5-19); Blood Urea Nitrogen 51 mg/dL (8-23); Carbon Dioxide 33 mmol/L (22-29); Chloride 89 mmol/L (98-107); Glucose 166 mg/dL (65-115); Osmolality Calculated 295 mOsm/kg (285-295); Potassium 3.5 mmol/L (3.5-5.1); Sodium 134 mmol/L (136-145)
[2023-04-15 06:22] LABS: Glucose Point of Care 154 mg/dL (70-110)
[2023-04-15] MEDS: budesonide 0.5 mg/2 mL Neb INHALATION ×2 (07:34→20:47)
[2023-04-15] MEDS: levothyroxine 50 mcg Tablet PO (07:45)
[2023-04-15] MEDS: magnesium oxide 400 mg tablet PO ×2 (07:45→18:29)
[2023-04-15] MEDS: citalopram 20 mg Tablet PO (07:46)
[2023-04-15] MEDS: atorvastatin 40 mg Tablet 20 MG PO (07:46)
[2023-04-15] MEDS: oxyCODONE 5 mg IR Tab/Cap PO ×2 (07:46→18:31)
[2023-04-15] MEDS: atenolol 50 mg Tablet PO (07:47)
[2023-04-15] MEDS: predniSONE 20 mg Tablet 40 MG PO (07:47)
[2023-04-15] MEDS: potassium chloride ER 20 mEq Tablet 40 MEQ PO (07:47)
[2023-04-15] MEDS: amoxicillin-clav 875-125 mg Tablet 1 TAB PO ×2 (07:47→18:29)
[2023-04-15] MEDS: levothyroxine 200 mcg Tablet PO (07:48)
[2023-04-15] MEDS: docusate sodium 100 mg Capsule PO ×2 (07:48→18:29)
[2023-04-15] MEDS: allopurinol 100 mg Tablet PO (07:48)
[2023-04-15] MEDS: doxycycline 100 mg Tablet PO ×2 (07:48→18:29)
[2023-04-15] MEDS: insulin lispro 100 unit/1 mL SUBCUT ×4 (07:49→21:34)
[2023-04-15] MEDS: iohexol 350 mg/mL 500 mL Btl (per mL) IV (08:13)
--- NOTE | 2023-04-15 10:26 | CTR_ITS ---
PROCEDURE INFORMATION: Exam: CTA Chest With Contrast Exam date and time: 04/15/2023 8:05 AM Age: 72 years old Clinical indication: Cough and shortness of breath; Prior surgery; Surgery date: 6+ months; Surgery type: Port; Additional info: Pe. TECHNIQUE: Imaging protocol: Computed tomographic angiography of the chest with contrast. Exam focused on the arteries. 3D rendering (Not supervised by radiologist): MIP and/or 3D reconstructed images were created by the technologist. Radiation optimization: All CT scans at this facility use at least one of these dose optimization techniques: automated exposure control; mA and/or kV adjustment per patient size (includes targeted exams where dose is matched to clinical indication); or iterative reconstruction. Contrast material: OMNI 350; Contrast volume: 41 ml; Contrast route: INTRAVENOUS (IV); COMPARISON: CT chest w con* [id number] 07/11/2020 10:36 AM RADIATION DOSE METRICS: Total DLP (mGy-cm): 576.52 FINDINGS: Pulmonary arteries: Normal. No pulmonary emboli. Aorta: Unremarkable. No aortic aneurysm. No aortic dissection. Lungs: Unremarkable. No consolidation. No masses. Pleural spaces: Unremarkable. No pneumothorax. No pleural effusion. Heart: Unremarkable. No cardiomegaly. No pericardial effusion. Lymph nodes: Unremarkable. No enlarged lymph nodes. Gallbladder and bile ducts: Cholecystectomy. Kidneys and ureters: Incompletely imaged left renal cysts. Bones/joints: Unremarkable. No acute fracture. Soft tissues: Unremarkable. CT/CT angio chest PE protcl [id number] IMPRESSION: No acute intrathoracic pathology. COMMENTS: Consistent with the [employer]'s Incidental Findings Committee white paper (J Am Martha Radiol 2018): Any incidental renal lesion less than 1 cm or classified as too small to characterize, or any incidental cystic renal lesion characterized as simple-appearing, is likely benign. No follow-up imaging is recommended for these lesions per consensus recommendations based on imaging criteria.
--- NOTE | 2023-04-15 10:39 | P.PN_ITS ---
Subjective 2 Subjective: Creatinine improving Patient not requiring oxygen at baseline at rest Qualified for 2 L on ambulation Looking for senior care placement Will do senior care screening, patient is able to ambulate up to 85 feet Vitals/I&O/Wt Last Vital Signs Temp 97.7 F 04/15/23 07:51 Pulse 57 L 04/15/23 07:51 Resp 20 H 04/15/23 07:51 BP 142/77 04/15/23 07:51 Pulse Ox 94 04/15/23 07:51 O2 Del Method Room Air 04/15/23 07:51 O2 Flow Rate 2 04/15/23 03:25 04/14/23 04/15/23 04/15/23 22:59 06:59 14:59 Intake Total 360 / 1180 240 / 240 Output Total 2500 / 2500 800 / 3300 Balance -2140 / -1320 -800 / -2120 240 / 240 Weight last 48 hrs Weight 137.155 kg Weight 139.933 kg Physical Exam 2 Narrative: Signs of anasarca improving Signs of lower extremity cellulitis improving No signs of Dakotah's gangrene Scrotal edema improving erythema improving as well Abdomen wall cellulitis improved S1, S2 Currently on room air Cardiac wheeze improved to some extent as compared to yesterday Currently on room air at baseline Urinary Catheter Management: Ward: Cath Placed During This Visit: yes Reason for Continuing Indwelling Catheter: Other Urinary Catheter Date of Insertion: 04/08/23 Urinary Catheter Time of Insertion: 10:41 Data 04/14/23 05:36 04/15/23 05:16 Micro: Microbiology 04/08/23 10:43 Blood Culture - Final Blood 04/08/23 10:40 Blood Culture - Final Blood A&P Assessment and plan (1) Essential hypertension: (2) Acute diastolic CHF (congestive heart failure): (3) Exertional dyspnea: (4) Diabetes: Qualifiers: Diabetes mellitus type: type 2 (5) Hypothyroid: Qualifiers: Hypothyroidism type: acquired Qualified Code(s): E03.9 - Hypothyroidism, unspecified (6) Wheezing: (7) COPD exacerbation: (8) Lung nodule seen on imaging study: (9) COPD (chronic obstructive pulmonary disease): (10) Hydrocele, bilateral: (11) Edema of scrotum: (12) YANI (acute kidney injury): Plan Hospital course: Patient got admitted for management evaluation of orthopnea PND worsening of swelling and cellulitis of lower extremity, initially there was concern for Dakotah's gangrene however he just had a hydrocele with scrotal edema related to congestive heart failure features, no signs of Dakotah's gangrene We have ruled out PE He does have cardiac wheezing Improving with steroids and diuresis Qualified for 2 L on ambulation however daughter requested senior care placement he has walked 85 feet independently, Acute diastolic CHF exacerbation: No signs of PE COPD exacerbation: Cultures remain negative Patient is ready to be discharged from medical standpoint once accepted at a senior care YANI is related to contraction alkalosis due to overdiuresis, Creatinine improving Patient lives alone, will require sleep study however patient is stating that he would not wear CPAP at all even if we get everything set up for him No signs of Dkaotah's gangrene I have de-escalated antibiotics to Augmentin and doxycycline Discontinue IV antibiotics on 04/14 Disposition: care home placement Cardiac consistent carb diet Cardiac wheezing improving I gave him magnesium as well yesterday Attestations 2 Medical Necessity Statement*: Continue medical management Diagnoses Essential hypertension I10 Acute diastolic CHF (congestive heart failure) I50.31 Exertional dyspnea R06.00 Diabetes E11.9 Diabetes mellitus type: type 2 Acquired hypothyroidism E03.9 Hypothyroidism type: acquired Wheezing R06.2 COPD exacerbation J44.1 Lung nodule seen on imaging study R91.1 COPD (chronic obstructive pulmonary disease) J44.9 Hydrocele, bilateral N43.3 Edema of scrotum N50.89 YANI (acute kidney injury) N17.9
[2023-04-15 11:46] LABS: Glucose Point of Care 239 mg/dL (70-110)
[2023-04-15] MEDS: enoxaparin 40 mg/0.4 mL Syringe SUBCUT (13:24)
[2023-04-15 16:54] LABS: Glucose Point of Care 176 mg/dL (70-110)
[2023-04-15 21:07] LABS: Glucose Point of Care 246 mg/dL (70-110)
[2023-04-16 00:55] VITALS: BP 130/80; PULSE 54; RESP 18; TEMP 36.5; O2SAT 92
[2023-04-16 02:00] VITALS: RESP 18; O2SAT 93
[2023-04-16 05:20] LABS: Basophils # 0.1 10^3/uL (0.0-0.1); Basophils % 0.7 %; Eosinophils # 0.1 10^3/uL (0.0-0.8); Eosinophils % 0.6 %; Hematocrit 46.7 % (37-53); Lymphocytes # 1.3 10^3/uL (0.8-4.8); Lymphocytes % 12.5 %; Mean Corpuscular HGB Conc 31.7 g/dL (30-55); Mean Corpuscular Hemoglobin 28.2 pg (27-33); Mean Corpuscular Volume 89.1 fl (82-101); Mean Platelet Volume 10.1 fL (7.4-10.4); Monocytes # 1.1 10^3/uL (0.2-0.9); Neutrophils # 7.57 10^3/uL (1.8-7.7); Neutrophils % 74.6 %; Nucleated Red Blood Cells % 0 %; Platelet Count 332 10^3/cmm (157-399); Red Blood Count 5.24 10^6/uL (3.85-5.65); Red Cell Distribution Width 15.2 % (12.1-15.1); White Blood Count 10.15 10^3/uL (3.29-11.43)
[2023-04-16 05:36] VITALS: BP 160/80; PULSE 56; RESP 18; TEMP 37.2; O2SAT 91
[2023-04-16 05:48] LABS: Anion Gap 14.3 (5-19); Blood Urea Nitrogen 52 mg/dL (8-23); Calcium 9.2 mg/dL (8.5-10.5); Carbon Dioxide 32 mmol/L (22-29); Chloride 93 mmol/L (98-107); Glucose 170 mg/dL (65-115); Osmolality Calculated 300 mOsm/kg (285-295); Potassium 3.3 mmol/L (3.5-5.1); Sodium 136 mmol/L (136-145)
[2023-04-16 06:38] LABS: Glucose Point of Care 189 mg/dL (70-110)
[2023-04-16 08:00] VITALS: BP 159/71; PULSE 52; PULSE 86; RESP 18; TEMP 36.3; O2SAT 91; O2SAT 98
[2023-04-16] MEDS: budesonide 0.5 mg/2 mL Neb INHALATION (08:13)
[2023-04-16] MEDS: ipratropium-albuterol 3 mL Neb INHALATION (08:13)
[2023-04-16] MEDS: allopurinol 100 mg Tablet PO (08:30)
[2023-04-16] MEDS: magnesium oxide 400 mg tablet PO (08:30)
[2023-04-16] MEDS: levothyroxine 200 mcg Tablet PO (08:30)
[2023-04-16] MEDS: amoxicillin-clav 875-125 mg Tablet 1 TAB PO (08:30)
[2023-04-16] MEDS: bumetanide 1 mg Tablet PO (08:31)
[2023-04-16] MEDS: levothyroxine 50 mcg Tablet PO (08:31)
[2023-04-16] MEDS: atorvastatin 40 mg Tablet 20 MG PO (08:31)
[2023-04-16] MEDS: potassium chloride ER 20 mEq Tablet 40 MEQ PO (08:31)
[2023-04-16] MEDS: doxycycline 100 mg Tablet PO (08:31)
[2023-04-16] MEDS: docusate sodium 100 mg Capsule PO (08:31)
[2023-04-16] MEDS: citalopram 20 mg Tablet PO (08:31)
[2023-04-16] MEDS: atenolol 50 mg Tablet PO (08:32)
[2023-04-16] MEDS: insulin lispro 100 unit/1 mL SUBCUT (08:32)
[2023-04-16] MEDS: predniSONE 20 mg Tablet 40 MG PO (08:32)
--- NOTE | 2023-04-16 09:19 | P.PN_ITS ---
Subjective 2 Subjective: Creatinine improving Patient not requiring oxygen at baseline at rest Qualified for 2 L on ambulation Looking for snf placement Will do snf screening, patient is able to ambulate up to 85 feet Vitals/I&O/Wt Last Vital Signs Temp 97.3 F L 04/16/23 08:00 Pulse 52 L 04/16/23 08:00 Resp 18 04/16/23 08:00 BP 159/71 04/16/23 08:00 Pulse Ox 91 04/16/23 08:00 O2 Del Method Room Air 04/16/23 08:00 O2 Flow Rate 2 04/15/23 03:25 04/15/23 04/16/23 04/16/23 22:59 06:59 14:59 Intake Total 300 / 540 60 / 600 240 / 240 Output Total 1100 / 1100 1000 / 2100 Balance -800 / -560 -940 / -1500 240 / 240 Weight last 48 hrs Weight 305 lb 3 oz Weight 302 lb 6 oz Physical Exam 2 Urinary Catheter Management: Ward: Cath Placed During This Visit: yes Reason for Continuing Indwelling Catheter: Other Urinary Catheter Date of Insertion: 04/08/23 Urinary Catheter Time of Insertion: 10:41 Data 04/16/23 04:49 04/16/23 04:49 Coding Level of Care Code Acute Code for g Fwd
--- NOTE | 2023-04-16 10:20 | P.DS_ITS ---
Discharge Providers Date of Admission: 04/08/23 12:44 Date of Discharge: April 16, 2023 Attending Provider at Admission: Farhat Mojica MD Attending Provider at Discharge: Suman Ritter MD Primary Care Provider: Blaire Linn Diagnoses at Discharge Discharge Diagnosis (1) Essential hypertension: Status: Acute (2) Acute diastolic CHF (congestive heart failure): Status: Acute (3) Exertional dyspnea: Status: Acute (4) Diabetes: Status: Acute Qualifiers: Diabetes mellitus type: type 2 (5) Hypothyroid: Status: Acute Qualifiers: Hypothyroidism type: acquired Qualified Code(s): E03.9 - Hypoth yroidism, unspecified (6) Wheezing: Status: Acute (7) COPD exacerbation: Status: Acute (8) Lung nodule seen on imaging study: Status: Acute (9) COPD (chronic obstructive pulmonary disease): Status: Acute (10) Hydrocele, bilateral: Status: Acute (11) Edema of scrotum: Status: Acute (12) YANI (acute kidney injury): Status: Acute Reason for Visit Reason for Visit: swollen testicles Hospital Course Hospital Course 72-year-old male who was admitted for management evaluation of congestive heart failure exacerbation, he was diagnosed with preserved ejection fraction cardiomyopathy, we did diagnose him with sleep apnea, I had a detailed discussion with the patient regarding sleep study and use of CPAP patient is stating that he is not going to use anything for his sleep apnea including CPAP agreeable to use oxygen cannula, will do home oxygen evaluation before discharge, please note initially on admission there was concern related to worsening of cellulitis including Dakotah's gangrene he was put on broad- spectrum antibiotics, his swelling of scrotum improved with diuresis, cellulitis improved there was no signs or symptoms related to Dakotah's gangrene, patient is able to walk 85 feet, at rest does not need oxygen, carries history of COPD, he experienced cardiac wheezing as well which improved with diuresis and use of steroids remained afebrile no leukocytosis, he does have YANI related to overdiuresis with contraction alkalosis, I will give him follow-up with myself as outpatient. Blood cultures remain negative. No signs of DVT or PE, scrotum ultrasound unremarkable, he does have bilateral reducible nguinal hernia no signs of incarceration or strangulation. will send alverto on abx and follow up in clinic. Physical Exam Narrative: Signs of anasarca improving Signs of lower extremity cellulitis improving No signs of Dakotah's gangrene Scrotal edema improving erythema improving as well Abdomen wall cellulitis improved S1, S2 Currently on room air Cardiac wheeze improved to some extent as compared to yesterday Currently on room air at baseline Urinary Catheter Management: Ward: Cath Placed During This Visit: yes Reason for Continuing Indwelling Catheter: Other Urinary Catheter Date of Insertion: 04/08/23 Urinary Catheter Time of Insertion: 10:41 Discharge Data Studies Completed and Pending Completed Studies During Hospitalization Category Date Time Status CT abdomen pelvis w con* [id number] Stat Cat Scan 04/08/23 06:[address] angio chest PE protcl [id number] Routine Cat Scan 04/15/23 10:26 Completed XR chest 1V portable [id number] Routine Exams 04/13/23 12:13 Completed XR chest 1V portable [id number] Stat Exams 04/08/23 06:42 Completed Blood Cultures ([facility]) Routine Lab 04/08/23 10:40 Completed Blood Cultures ([facility]) Routine Lab 04/08/23 10:43 Completed CV echo complete* [id number] Routine Ultrasound 04/08/23 13:44 [place] [id number] Routine Ultrasound 04/08/23 13:44 Completed US scrotum [id number] Stat Ultrasound 04/08/23 06:35 Completed Radiology Impressions Scrotum Ultrasound 04/08/23 06:35 IMPRESSION: Bilateral inguinal hernias. Chest X-Ray 04/13/23 12:13 IMPRESSION: 1. No acute cardiopulmonary process. 2. Incidental/nonacute findings are listed in the report. Chest CTA 04/15/23 10:26 IMPRESSION: No acute intrathoracic pathology. COMMENTS: Consistent with the [employer]'s Incidental Findings Committee white paper (J Am Martha Radiol 2018): Any incidental renal lesion less than 1 cm or classified as too small to characterize, or any incidental cystic renal lesion characterized as simple-appearing, is likely benign. No follow-up imaging is recommended for these lesions per consensus recommendations based on imaging criteria. Laboratory Results WBC 10.15 10^3/uL (3.29-11.43) 04/16/23 04:49 RBC 5.24 10^6/uL (3.85-5.65) 04/16/23 04:49 Hgb 14.80 g/dL (11.27-16.99) 04/16/23 04:49 Hct 46.7 % (37-53) 04/16/23 04:49 MCV 89.1 fl (82-101) 04/16/23 04:49 MCH 28.2 pg (27-33) 04/16/23 04:49 MCHC 31.7 g/dL (30-55) 04/16/23 04:49 RDW 15.2 % (12.1-15.1) H 04/16/23 04:49 Plt Count 332 10^3/cmm (157-399) 04/16/23 04:49 MPV 10.1 fL (7.4-10.4) 04/16/23 04:49 Neut % (Auto) 74.6 % 04/16/23 04:49 Lymph % (Auto) 12.5 % 04/16/23 04:49 [place] % (Auto) 11.0 % 04/16/23 04:49 Eos % (Auto) 0.6 % 04/16/23 04:49 Baso % (Auto) 0.7 % 04/16/23 04:49 Neut # (Auto) 7.57 10^3/uL (1.8-7.7) 04/16/23 04:49 Lymph # (Auto) 1.3 10^3/uL (0.8-4.8) 04/16/23 04:49 [place] # (Auto) 1.1 10^3/uL (0.2-0.9) H 04/16/23 04:49 Eos # (Auto) 0.1 10^3/uL (0.0-0.8) 04/16/23 04:49 Baso # (Auto) 0.1 10^3/uL (0.0-0.1) 04/16/23 04:49 Nucleated RBC % (auto) 0 % 04/16/23 04:49 Nucleated RBCs # 0.0 /100WBC 04/16/23 04:49 Sodium 136 mmol/L (136-145) 04/16/23 04:49 Potassium 3.3 mmol/L (3.5-5.1) L 04/16/23 04:49 Chloride 93 mmol/L (98-107) L 04/16/23 04:49 Carbon Dioxide 32 mmol/L (22-29) H 04/16/23 04:49 Anion Gap 14.3 (5-19) 04/16/23 04:49 BUN 52 mg/dL (8-23) H 04/16/23 04:49 Creatinine 1.3 mg/dL (0.7-1.2) H 04/16/23 04:49 GFR Calculation Not Reportable 04/16/23 04:49 Glucose 170 mg/dL (65-115) H 04/16/23 04:49 POC Glucose 189 mg/dL (70-110) H 04/16/23 06:20 Calculated Osmolality 300 mOsm/kg (285-295) H 04/16/23 04:49 Lactic Acid 1.8 mmol/L (0.5-2.2) 04/08/23 10:40 Calcium 9.2 mg/dL (8.5-10.5) 04/16/23 04:49 Magnesium 1.8 mg/dL (1.7-2.3) 04/12/23 04:50 Total Bilirubin 0.6 mg/dL (0.15-1.2) 04/09/23 04:32 AST 24 U/L (0-40) 04/09/23 04:32 ALT 25 U/L (0-41) 04/09/23 04:32 Alkaline Phosphatase 105 U/L (40-130) 04/09/23 04:32 Troponin T Baseline 36 ng/L (0-15) H 04/08/23 07:46 Troponin T 120 Minute 34.62 ng/L (0-15) H 04/08/23 09:40 Delta Troponin T -1.38 ABS# (0-10) L 04/08/23 09:40 Troponin T Hi Sens 6Hr 37.39 ng/L (0-15) H 04/08/23 14:20 Troponin T Hi Sens 6Hr Delta 1.39 ng/L (0-12) 04/08/23 14:20 NT-Pro-B Natriuret Pep 244 pg/mL (0-125) H 04/08/23 07:46 Total Protein 6.3 g/dL (6.6-8.7) L 04/09/23 04:32 Albumin 3.6 g/dL (3.5-5.2) 04/09/23 04:32 Globulin 2.7 g/dL (1.3-4.6) 04/09/23 04:32 Lipase 29 U/L (13-60) 04/08/23 07:46 Procalcitonin 0.07 ng/mL (0-0.5) 04/10/23 04:22 TSH 4.32 uIU/mL (0.27-4.20) H 04/08/23 07:46 Urine Color Light yellow (Yellow) 04/08/23 10:33 Urine Appearance Clear (CLEAR) 04/08/23 10:33 Urine pH 6 (5-7) 04/08/23 10:33 Ur Specific [place] 1.015 (1.005-1.030) 04/08/23 10:33 Urine Protein Neg (Negative) 04/08/23 10:33 Urine Glucose (UA) Norm (Normal) 04/08/23 10:33 Urine Ketones Negative (Negative) 04/08/23 10:33 Urine Blood Neg (Negative) 04/08/23 10:33 Urine Nitrate Negative (Negative) 04/08/23 10:33 Urine Bilirubin Neg (Negative) 04/08/23 10:33 Urine Urobilinogen Norm mg/dL (Negative) 04/08/23 10:33 Ur Leukocyte Esterase Negative (Negative) 04/08/23 10:33 Vancomycin Trough 21.2 ug/mL (10-15) H 04/13/23 05:24 MRSA (PCR) Detected (NOT DETECTED) A 04/10/23 13:19 Vitals Last Vital Signs Temp 97.3 F L 04/16/23 08:00 Pulse 52 L 04/16/23 08:00 Resp 18 04/16/23 08:00 BP 159/71 04/16/23 08:00 Pulse Ox 91 04/16/23 08:00 O2 Del Method Room Air 04/16/23 08:00 O2 Flow Rate 2 04/15/23 03:25 Discharge Plan Discharge Patient Disposition: Home Condition: Stable Prescriptions: New amoxicillin-pot clavulanate 875-125 mg tablet 1 tab PO BID 7 Days Qty: 14 0RF doxycycline monohydrate 100 mg Tablet 100 mg PO BID 10 Days Qty: 20 0RF Klor-Con M20 20 mEq Tablet,Er Particles/Crystals 40 meq PO DAILY 30 Days Qty: 30 0RF magnesium oxide 400 mg (241.3 mg magnesium) Tablet 400 mg PO BID 7 Days Qty: 14 0RF bumetanide 1 mg Tablet 1 mg PO DAILY 30 Days Qty: 30 0RF Continued budesonide-formoterol [Symbicort] 160-4.5 mcg/actuation HFA aerosol inhaler 2 puff inhalation BID Qty: 10.2 4RF albuterol sulfate 0.63 mg/3 mL solution for nebulization 0.63 mg INHALATION Q6H PRN (Reason: shortness of breath or wheezing) 30 Days Qty: 90 0RF lovastatin 20 mg tablet 20 mg PO DAILY 90 Days Qty: 90 0RF Synthroid 200 mcg tablet 200 mcg PO DAILY@0900 Qty: 90 0RF allopurinol 100 mg tablet 100 mg PO DAILY@0900 levothyroxine 50 mcg tablet 50 mcg PO DAILY albuterol sulfate 90 mcg/actuation HFA aerosol inhaler 2 puff INHALATION Q6H PRN (Reason: Shortness Of Breath Or Wheezing) citalopram 20 mg tablet 20 mg PO DAILY Discontinued meloxicam 7.5 mg tablet 7.5 mg PO DAILY@0900 Qty: 90 1RF [place] 324 mg Tablet, Effervescent See Rx Instructions .ROUTE .COMPLEX Rx Instructions: USE DIRECTED furosemide [Lasix] 40 mg tablet 60 mg PO BID@0900,1700 atenolol 50 mg tablet 50 mg PO DAILY@0900 metformin 1,000 mg tablet 1,000 mg PO DAILY Discharge Orders: Discharge Order (Routine); Ordered 04/16/23 Ordered By: Suman Ritter Other Ambulatory Orders: DME: Oxygen (Order) Location: None Selected Ordered By: Christin Gonzalez Referrals: [facility] [Outside] Suman Ritter MD [Physician] - 04/18/23 10:45 am Discharge Diet: Cardiac Discharge Activity: As per PT/OT instructions Patient Instructions: Cellulitis, Heart Failure (GEN), Acute Kidney Injury (GEN), CHF Stoplight, Opioid Safety Discharge Attestations Time Spent in Discharge Care*: less than 30 min Quality Metrics Clinical Quality Measures [ No reported AMI, CVA or VTE this stay] Coding Level of Care Code 15166 Diagnoses Essential hypertension I10 Acute diastolic CHF (congestive heart failure) I50.31 Exertional dyspnea R06.00 Diabetes E11.9 Diabetes mellitus type: type 2 Acquired hypothyroidism E03.9 Hypothyroidism type: acquired Wheezing R06.2 COPD exacerbation J44.1 Lung nodule seen on imaging study R91.1 COPD (chronic obstructive pulmonary disease) J44.9 Hydrocele, bilateral N43.3 Edema of scrotum N50.89 YANI (acute kidney injury) N17.9
[2023-04-16 11:22] LABS: Glucose Point of Care 194 mg/dL (70-110)
--- NOTE | 2023-04-16 11:36 | PC.SOCIAL ---
IMM Update pg 2 of IMM updated and reviewed w/ patient. Copy provided and copy dated, initialed and placed in chart.
[2023-04-16 12:16] VITALS: BP 159/71; PULSE 52; RESP 18; TEMP 36.3; O2SAT 91
--- NOTE | 2023-04-16 15:07 | PC.NURSE ---
Spoke to the pharmacists at [facility] in [place]. Pharmacy says they have then ready for him. I called the patient back and told him they are ready.
== END 2023-04-16 12:00 | disposition skilled nursing facility (03) | DRG 291 ==
LOC: ER 11:16 → MEDSURG 12:44
PROVIDERS: Family Medicine; Internal Medicine; Admitting Provider Internal Medicine; Emergency Provider Internal Medicine; PCP Registered Nurse; Visit Provider Family Medicine
DX: I11.0 Hypertensive heart disease with heart failure (principal); I50.33 Acute on chronic diastolic (congestive) heart failure; J44.1 Chronic obstructive pulmonary disease with (acute) exacerbation; L03.116 Cellulitis of left lower limb; L03.115 Cellulitis of right lower limb; L03.311 Cellulitis of abdominal wall; N17.9 Acute kidney failure, unspecified; I42.9 Cardiomyopathy, unspecified; E11.9 Type 2 diabetes mellitus without complications; Z79.84 Long term (current) use of oral hypoglycemic drugs; E03.9 Hypothyroidism, unspecified; E87.6 Hypokalemia; Z87.891 Personal history of nicotine dependence; G47.30 Sleep apnea, unspecified; F41.8 Other specified anxiety disorders; R00.0 Tachycardia, unspecified; E78.5 Hyperlipidemia, unspecified; N50.89 Other specified disorders of the male genital organs; N43.3 Hydrocele, unspecified; R79.1 Abnormal coagulation profile; R06.09 Other forms of dyspnea
CPT/HCPCS: 36415; 36416; 36591; 51702; 71045; 71275; 74177; 76870; 80048; 80053; 80202; 81003; 82962; 83605; 83690; 83735; 83880; 84145; 84443; 84484; 85025; 87040; 87641; 93005; 93306; 93970; 94640; 94760; 96365; 96367; 96372; 96375; 97161; 99285; J1650; J1815; J1940; J2543; J3370; J3372; J3475; J3480; J3490; J7512; J7626; Q9967

== ENCOUNTER → 2023-04-28 10:25 | Outpatient (BNVA) | payer MEDICARE, SELFPAY | PROVIDERS: PCP Registered Nurse; Visit Provider Family Medicine | DX: I50.30 Unspecified diastolic (congestive) heart failure; E11.9 Type 2 diabetes mellitus without complications | CPT/HCPCS: 80053; 83036 ==

== ENCOUNTER → 2023-10-27 11:48 | Outpatient (BNVA) | payer MEDICARE, SELFPAY | PROVIDERS: PCP Family Medicine; Visit Provider Family Medicine | DX: C61 Malignant neoplasm of prostate (principal); E03.9 Hypothyroidism, unspecified; E11.9 Type 2 diabetes mellitus without complications | CPT/HCPCS: 80053; 83036; 84153; 84439; 84443 ==

== ENCOUNTER → 2024-01-08 12:52 | Outpatient (BNVA) | payer MEDICARE, SELFPAY | PROVIDERS: PCP Family Medicine; Visit Provider Student in an Organized Health Care Education/Training Program | DX: G56.03 Carpal tunnel syndrome, bilateral upper limbs (principal) | CPT/HCPCS: 73130; 99204 ==

== ENCOUNTER → 2024-01-12 15:06 | Outpatient (BNVA) | payer MEDICARE, SELFPAY | PROVIDERS: PCP Family Medicine; Visit Provider Family Medicine | DX: I10 Essential (primary) hypertension (principal); E03.9 Hypothyroidism, unspecified | CPT/HCPCS: 80061; 84439; 84443; 85025 ==

== ENCOUNTER 2024-02-12 07:18 | Day surgery (SDC) | payer MEDICARE, SELFPAY ==
[2024-02-12] VITALS (15 sets, daily range): BP systolic 125–165; BP diastolic 56–91; PULSE 60–79; RESP 16–20; TEMP 36.3–36.7; O2SAT 89–96; BMI 45.6
[2024-02-12] MEDS: sodium chloride 0.9% 1,000 ML 30 ML IV (08:00)
[2024-02-12] MEDS: acetaminophen 1,000 MG/100 ML PIGGYBACK 400 MG IV (08:05)
[2024-02-12 08:11] LABS: Glucose Point of Care 126 mg/dL (70-110)
[2024-02-12] MEDS: ketorolac 30 mg/mL INJ IVP (08:23)
--- NOTE | 2024-02-12 08:35 | W.PM.OPSFHP ---
Same Day Surgery H&P Indication for Procedure/HPI DATE OF PROCEDURE: February 12, 2024 CHIEF COMPLAINT/INDICATIONFOR SURGICAL PROCEDURE: Left carpal tunnel syndrome, left median nerve entrapment of the proximal forearm PREOP DIAGNOSIS: Left carpal tunnel syndrome, left median nerve entrapment proximal forearm PLANNED PROCEDURE: Operation Date: 02/12/24 09:25 Proposed Procedures p Carpal Tunnel Release with Median nerve release at proximal forearm(Left) - Demetri Myrick DO Medications/Allergies* Home Medications Medication Instructions Recorded Confirmed Type albuterol sulfate 90 mcg/actuation 2 puff inhalation Q6H PRN 04/08/23 02/12/24 History aerosol inhaler Shortness Of Breath Or Wheezing citalopram 20 mg tablet 20 mg PO DAILY 02/11/24 02/11/24 History Allergies/Adverse Reactions Allergy/AdvReac Type Severity Reaction Status Date / Time No Known Allergies Allergy Verified 01/12/24 14:14 Current Medications: Generic Name Dose Route Start Last Admin Trade Name Freq PRN Reason Stop Dose Admin Sodium Chloride 1,000 mls @ 30 mls/hr 02/12/24 07:30 02/12/24 08:00 Sodium Chloride 0.9% IV 02/13/24 07:29 30 mls/hr .Q24H HENRRY Administration Pertinent History/Comorbid Conditions* Medical History (Updated 01/26/24 @ 09:58 by Demetri Myrick DO) Essential hypertension Diabetes Edema of scrotum Heart failure with preserved ejection fraction Anxiety Moderate major depression Hypothyroid Acute diastolic CHF (congestive heart failure) Cellulitis of scrotum Abdominal wall cellulitis Exertional dyspnea COPD exacerbation Shortness of breath Melanoma COPD (chronic obstructive pulmonary disease) Prostate cancer Hyperlipemia Seborrheic keratoses Cellulitis of lower extremity LBBB (left bundle branch block) Shortness of breath Edema Rash of body Close exposure to COVID-19 virus Wheezing Lower respiratory tract infection Essential hypertension [place] reservoir present Arthritis Brain tumor Surgical History (Updated 04/08/23 @ 11:20 by Farhat Mojica MD) Hx of knee surgery bilat Hx of cholecystectomy History of back surgery X5 Social History Smoking and tobacco/nicotine status: former use of tobacco/nicotine Quit status (tobacco/nicotine): has quit using Year quit tobacco: 1990 Former quit date comment: Hx of 2 PPD x 20 Years Alcohol intake: never Substance/Drug Use: never Lives independently: Yes Household members: spouse Marital status: Current occupational status: retired Current occupation: Retired Do you think of yourself as: Straight/Heterosexual Current gender identity: Male Pertinent Exam Findings alert, oriented x 3, operative site marked and procedure specific exam findings Please refer to detailed orthopedic examination on 01/08/2024 listed below: EXAM NARRATIVE: Left upper extremity Exam: Normal C-spine ROM No pain. Negative Spurling's Negative Tinel's to the bilateral shoulders Normal ROM elbow. Negative Tinel's @ elbow Right and Left. Positive median compression test. At the wrist Positive Tinel's on left at the wrist as well as a positive Tinel's at the proximal forearm over the median nerve Positive Phalen's Thenar weakness Subtle atrophy noted. No Intrinsic atrophy noted bilaterally. Recommendations Surgery/Procedure today Other Plans: Plan proceed to the OR today for left carpal tunnel release with left median nerve release proximal forearm. Patient understands the ins and outs procedure risk benefits complication alternatives to surgery and through shared decision making lacks proceed with surgical intervention. All questions answered at this time. Coding Level of Care Code Acute Code for Juan Manuel Hardin
--- NOTE | 2024-02-12 08:43 | ANES.PREANE2 ---
Pre-Anesthetic Assessment Height/Weight: Height 5 ft 8 in Weight 300 lb O2 Del Method Room Air 02/12/24 08:11 Preop Diagnosis: Left carpal tunnel syndrome, left median nerve entrapment proximal forearm Operation Date: 02/12/24 09:25 Proposed Procedures p Carpal Tunnel Release with Median nerve release at proximal forearm(Left) - Demetri Myrick, DO Was Beta Connor taken within 24 hours: N/A Was Clonidine taken within 24 hours: N/A Last intake: Intake Last Liquid Date 02/11/24 Last Liquid Time 23:30 Last Solid Date 02/11/24 Last Solid Time 16:00 Social No alcohol and No tobacco Exam alert, oriented x 3, clear to auscultation bilaterally and regular rate & rhythm Anesthetic Plan ASA status: 3 Anesthesia: General and Regional (specify below) Other: No prior issues with anesthesia NPO since yesterday Significant past medical history including prostate and brain cancer, currently undergoing chemotherapy Type 2 diabetes on metformin, BS 126 Hypertension on amlodipine EKG showing sinus rhythm with a mild conduction delay Patient is still able to perform ADLs Plan for general anesthesia with preop nerve block Medications/Allergies Home Medications Medication Instructions Recorded Confirmed Last Taken Type albuterol sulfate 0.63 mg/3 mL 0.63 mg (3 mL) inhalation Q6H PRN 12/31/19 02/12/24 01/28/24 Rx solution for nebulization shortness of breath or wheezing 30 days #90 mL albuterol sulfate 90 mcg/actuation 2 puff inhalation Q6H PRN 04/08/23 02/12/24 02/09/24 History aerosol inhaler Shortness Of Breath Or Wheezing metformin 1,000 mg tablet 1,000 mg PO DAILY #180 tabs 04/28/23 02/11/24 02/10/24 Rx levothyroxine 200 mcg tablet 200 mcg PO DAILY@0900 #90 tabs 07/30/23 02/11/24 02/10/24 Rx (Synthroid) meloxicam 15 mg tablet 15 mg PO DAILY #90 tabs 08/29/23 02/11/24 02/10/24 Rx levothyroxine 25 mcg tablet 25 mcg PO DAILY #60 tabs 10/28/23 02/11/24 02/11/24 Rx bumetanide 1 mg tablet 1 mg PO DAILY #90 tabs 11/20/23 02/11/24 02/10/24 Rx allopurinol 100 mg tablet 200 mg (2 x 100 mg) PO DAILY@0900 11/28/23 02/11/24 02/11/24 Rx #180 tabs amlodipine 5 mg tablet (Norvasc) 5 mg PO .qnightly #60 tabs 12/01/23 02/11/24 02/11/24 Rx cetirizine 10 mg tablet (Zyrtec) 10 mg PO DAILY #30 tabs 12/15/23 02/11/24 02/10/24 Rx citalopram 20 mg tablet 20 mg PO DAILY 02/11/24 02/11/24 02/10/24 History Allergies Allergy/AdvReac Type Severity Reaction Status Date / Time No Known Allergies Allergy Verified 01/12/24 14:14 Current Medications Generic Name Dose Route Start Last Admin Trade Name Freq PRN Reason Stop Dose Admin Sodium Chloride 1,000 mls @ 30 mls/hr 02/12/24 07:30 02/12/24 08:00 Sodium Chloride 0.9% IV 02/13/24 07:29 30 mls/hr .Q24H HENRRY Administration PFSH Anesthesia Medical History Essential hypertension Diabetes Edema of scrotum Heart failure with preserved ejection fraction Anxiety Moderate major depression Hypothyroid Acute diastolic CHF (congestive heart failure) Cellulitis of scrotum Abdominal wall cellulitis Exertional dyspnea COPD exacerbation Shortness of breath Melanoma COPD (chronic obstructive pulmonary disease) Prostate cancer Hyperlipemia Seborrheic keratoses Cellulitis of lower extremity LBBB (left bundle branch block) Shortness of breath Edema Rash of body Close exposure to COVID-19 virus Wheezing Lower respiratory tract infection Essential hypertension Ommaya reservoir present Arthritis Brain tumor Surgical History Hx of knee surgery bilat Hx of cholecystectomy History of back surgery X5 Social History Smoking and tobacco/nicotine status: former use of tobacco/nicotine Quit status (tobacco/nicotine): has quit using Year quit tobacco: 1990 Former quit date comment: Hx of 2 PPD x 20 Years Alcohol intake: never Substance/Drug Use: never Lives independently: Yes Household members: spouse Marital status: Current occupational status: retired Current occupation: Retired Do you think of yourself as: Straight/Heterosexual Current gender identity: Male Data Anesthesia Cardiac Studies: Echocardiogram 09/19/20 Echocardiogram Ultrasound 04/08/23
--- NOTE | 2024-02-12 09:09 | SUR.PREOP ---
08:55 LEFT SUPRACLAVICULAR NERVE BLOCK PERFORMED BY Dr CAMPBELL.PATIENT ON BAG SORTER AND O2 VIA NASAL CANNULA. TOLERATED PROCEDURE WELL. 30ml OF ROPIVACAINE 5% USED.
[2024-02-12] MEDS: ceFAZolin 3,000 MG in sodium chloride 0.9% (plus) 100 ML 200 MG IV (09:13)
[2024-02-12] MEDS: lidocaine-epi 1% 20 mL INJ 10 ML INJECTION (09:41)
[2024-02-12] MEDS: ROPivacaine 0.5% SDV 30 mL 50 MG INJECTION (09:41)
--- NOTE | 2024-02-12 10:19 | W.PM.BPON ---
Date of Procedure: 02/12/2024 Surgeon: Demetri Myrick DO Fleet Sales Manager(s): None Procedure(s) performed: Left carpal tunnel release Left proximal forearm median nerve release (decompression) Findings of the procedure(s): Patient found to have entrapment of the median nerve at the carpal tunnel and proximal forearm underwent procedure as planned without issues or complications Estimated blood loss: 5 mL Specimen(s) removed: None Post-operative diagnosis: Left carpal tunnel syndrome, left proximal forearm median nerve entrapment
--- NOTE | 2024-02-12 10:21 | PM.OP ---
Operative Report Date of procedure: February 12, 2024 Surgeon: Demetri Myrick DO Procedure: Preop Diagnosis: Left Carpal Tunnel Syndrome Left median nerve entrapment proximal forearm Post-op diagnosis: Same Procedure done: 1. Left carpal tunnel release 2. Left median nerve release proximal forearm Surgeon: Demetri Myrick DO Anesthesia: MAC (Local) Estimated blood loss: [5]mL Tourniquet time 36 minutes IV fluids: See anesthesia record Complications: None Findings: See operative report narrative Condition: stable Disposition: same day Brief History: Patient is a pleasant 73 year-old male with left carpal tunnel syndrome and proximal median nerve entrapment in the forearm. Patient has been worked up in the outpatient setting findings and physical examination consistent with this. Patient nerve conduction studies consistent with carpal tunnel syndrome and proximal median nerve entrapment in the forearm.. We detailed out patient's risk benefits complication alternatives with surgical and nonsurgical treatment options. Through shared decision making, patient agrees to proceed with surgical intervention of the left carpal tunnel release and left median nerve release at proximal forearm. Patient understands and agrees with current plan. All questions answered. Patient elects to proceed with surgical intervention. Procedure: Patient seen and evaluated in the preoperative holding area. Consent was reviewed and signed with patient. Correct extremity was marked. Patient was seen evaluated by the anesthesia department once cleared for surgery was brought back to the operative suite. Patient was kept on [facility] in supine position all bony prominences were well-padded patient properly secured to the bed. Left upper extremity was then placed onto an armboard. A nonsterile tourniquet was applied to the left upper arm. Patient underwent anesthesia per the anesthesia department. Patient's left upper extremity was then prepped and draped in standard orthopedic fashion. Final timeout performed. Patient received appropriate preoperative antibiotics. Under sterile aseptic technique patient received local anesthesia over the preplanned carpal tunnel incision site. Esmarch was used to exsanguinate the left upper extremity and tourniquet was insufflated to 250 mmHg. A standard mini open left carpal tunnel incision was made. Starting distally at Herman's cardinal line in line with the fourth ray extending proximally distal to the wrist crease centered over the carpal tunnel. Sharp scalpel incision was made through skin and subcutaneous tissue. Self-retaining retractor was placed and the palmar fascia was identified. This was then split longitudinally and direct visualization of the transverse carpal ligament was then made. I then utilizing scalpel feathered through the transverse carpal ligament until I entered the floor of the transverse carpal tunnel ligament into the carpal tunnel. Next I switched to dissection scissors and completed my release of the transverse carpal ligament distally with care to protect the recurrent motor branch. I completely released into the palmar fat and until no entrapment was noted distally. Care was made to protect the superficial palmar arch during my distal dissection. Next, nasal speculum placed proximally for retraction of soft tissue on top of the Transverse carpal ligament. Next the contents of the carpal tunnel where protected and and subsequently utilizing dissection scissors under loupe magnification completely released the transverse carpal ligament proximally into the antebrachial fascia. Care was made to protect the palmar cutaneous branch by keeping my scissors curved ulnarly. Once completely released, I then placed my Mckee and had appropriate decompression of the carpal tunnel proximally as well as distally. I then inspected the contents of the carpal tunnel which showed an hourglass shape of the median nerve showing its compression. No masses were noted. Tendons appeared healthy. Wound was then thoroughly irrigated. Next I then proceeded with the proximal median nerve release in the forearm. Performed a standard large shaped incision in the proximal forearm sharp supple incision was made through skin. Then switched to Littler dissection scissors spreading and making full-thickness flaps protecting any subcutaneous neurovascular branches as well as any venous vessels. I came down directly over to the forearm fascia. I then subsequently identified my neurovascular bundle branch of the radial artery and nerve this was identified proximally and traced I went through this interval plane and identified the pronator teres. Patient did have significant tension on the pronator teres I then subsequently did a standard step cut lengthening just to the fascia keep this intact but to allow for lengthening and to decompress distally the median nerve. I then traced up proximally and identified the median nerve was clearly evident patient had a significantly taut and prominent lacertus this was then subsequently decompressed with dissection scissors under careful dissection once again carefully protecting median nerve. I then subsequently released all fascial bands of that median nerve till it goes into the pronator teres where right already done the step lengthening and had significant decompression is able to take my finger up and down through the median nerve at this proximal forearm areas and sites of entrapment showing there is complete decompression of this area. This finished my proximal median nerve form release. Tourniquet deflated. Hemostasis satisfactory with bipolar electrocautery. I then closed the incision with interrupted nylon stitches for the carpal incision. The proximal incision was then closed with interrupted 3-0 Vicryl suture and running nylon suture. Xeroform 4 x 4's and a bulky soft dressing was applied to the left upper extremity. Patient was then awakened from anesthesia and taken to PACU in stable condition. Patient tolerated procedure without complications. Disposition: Patient taken to PACU in stable condition recovering well. Dressing clean dry and intact. Patient will receive appropriate discharge instructions as well as pain medication postoperatively. Patient to follow-up with Ortho in the office in 2 weeks. They understand they may be weightbearing as tolerated to the left hand. Patient should keep incision clean dry and intact. Patient understands if any questions or concerns may contact the office.
--- NOTE | 2024-02-12 10:42 | ANES.PROC ---
Anesthesia Procedures Procedure/Date: 02/12/24 Nerve Block ^: Nerve Block 1: Main Anesthesia: other (100 mcg fentanyl given) Time Out Performed: Yes Consent: requested by attending/covering physician and from patient Nerve block location: supraclavicular Anesthesia monitors applied: pulse oximetry, EKG, BP cuff and oxygen Nerve block position: supine Anesthetic Used: ropivicaine 0.5% Amount of anesthesia used (mL): 30 Ultrasound used to: recognize landmarks Nerve Stimulator Used?: Yes Interscalene/Femoral BLK: other needle (pjunk 4inch) Injection: neg aspiration of heme Patient Tolerated Procedure: well Complications: none Additional Comments: 4 mg Decadron
[2024-02-12] MEDS: albuterol 2.5 mg/3 mL Neb INHALATION (11:42)
--- NOTE | 2024-02-12 11:45 | SUR.PHASEII ---
11:42 PT WITH BILATERAL WHEEZES. NEBULIZER TREATMENT GIVEN. DENIES LEFT ARM PAIN. LEFT ARM ELEVATED ON PILLOW. GOOD CAP REFILL AND ROM OF FINGERS
--- NOTE | 2024-02-12 13:00 | ANE.PACU2 ---
Inpatient post-anesthesia follow up: Airway intact: Yes Vital signs: Temperature 98.0 F Pulse Rate 69 Respiratory Rate 18 Blood Pressure 138/87 Pulse Oximetry 91 Oxygen Delivery Me thod Room Air Oxygen Flow Rate 2 Fraction of Inspir ed Oxygen Hydration adequate: Yes Nausea and vomiting: No Pain level: 1 Mental status: Baseline
== END 2024-02-12 13:00 | disposition home or self-care (01) ==
PROVIDERS: PCP Family Medicine; Visit Provider Student in an Organized Health Care Education/Training Program
PROC: (CPT 64721; principal; 2024-02-12 09:25)
DX: G56.02 Carpal tunnel syndrome, left upper limb (principal); E11.9 Type 2 diabetes mellitus without complications; Z79.84 Long term (current) use of oral hypoglycemic drugs; Z85.46 Personal history of malignant neoplasm of prostate; Z85.841 Personal history of malignant neoplasm of brain; E03.9 Hypothyroidism, unspecified; I11.0 Hypertensive heart disease with heart failure; I50.31 Acute diastolic (congestive) heart failure; J44.9 Chronic obstructive pulmonary disease, unspecified; Z87.891 Personal history of nicotine dependence
CPT/HCPCS: 64721; 36416; 82962; J0131; J0690; J1100; J1885; J2405; J2704; J2795; J3010; J3490; J7030; J7613

== ENCOUNTER → 2024-02-27 08:29 | Outpatient (BNVA) | payer MEDICARE, SELFPAY | PROVIDERS: PCP Family Medicine; Visit Provider Physician Assistant | DX: Z98.890 Other specified postprocedural states (principal) | CPT/HCPCS: 99024 ==

== ENCOUNTER → 2024-04-20 07:01 | Outpatient (BNVA) | payer MEDICARE, SELFPAY | PROVIDERS: PCP Family Medicine; Visit Provider Student in an Organized Health Care Education/Training Program | DX: Z98.890 Other specified postprocedural states (principal) | CPT/HCPCS: 99213 ==

== ENCOUNTER → 2024-09-21 14:23 | Outpatient (BNVA) | payer MEDICARE, SELFPAY | PROVIDERS: PCP Family Medicine; Visit Provider Student in an Organized Health Care Education/Training Program | DX: G56.03 Carpal tunnel syndrome, bilateral upper limbs (principal) | CPT/HCPCS: 20600; 73130; 99214; J3301; J3490 ==

== ENCOUNTER → 2024-11-29 13:59 | Outpatient (BNVA) | payer MEDICARE, SELFPAY | PROVIDERS: PCP Family Medicine; Visit Provider Family Medicine | DX: I50.30 Unspecified diastolic (congestive) heart failure (principal); E11.9 Type 2 diabetes mellitus without complications; E03.9 Hypothyroidism, unspecified | CPT/HCPCS: 80053; 80061; 83036; 84439; 84443; 85025 ==

== ENCOUNTER → 2025-03-01 08:33 | Outpatient (BNVA) | payer MEDICARE, SELFPAY | PROVIDERS: PCP Nurse Practitioner Family; Visit Provider Nurse Practitioner Family | DX: E11.69 Type 2 diabetes mellitus with other specified complication (principal) | CPT/HCPCS: 80053; 80061; 83036; 84443; 85025 ==